=== PATIENT | female | born 1935 | race Caucasian/White ===

== ENCOUNTER 2017-10-26 08:29 | Day surgery (SDC) | payer MEDICARE ==
[2017-10-23 10:24] VITALS: BMI 44.6
[~2017-10-26 08:29] MED LIST: FLU VACC TS2017-18 (>65YR) 0.5 ML SYRINGE IM ONE; Prevnar 13-Val Conj/PF 0.5 ML SYRINGE IM ONE
[2017-10-26 08:55] LABS: #Basophils 0.1 thou/uL (0.0-0.2); #Eosinphils 0.4 thou/uL (0.0-0.7); #Lymphocytes 2.2 thou/uL (1.20-3.40); #Monocytes 0.8 thou/uL (0.11-0.59); #Neutrophils 6.7 thou/uL (1.40-6.50); %Basophils 1.2 % (0.0-1.0); %Eosinophils 4.3 % (0.0-10.0); %Lymphocytes 21.3 % (21.0-51.0); %Monocytes 7.6 % (0.0-10.0); %Neutrophils 65.7 % (42.0-75.0); Hemoglobin 10.1 g/dL (12.0-16.0); Mean Corpuscular HGB CONC 32.6 g/dL (32.0-36.0); Mean Corpuscular Hemoglobin 30.5 pg (27.0-31.0); Mean Corpuscular Volume 93.4 fl (81.0-99.0); Mean Platelet Volume 6.1 fL (7.4-10.4); Platelet Count 351 thou/uL (130-400); RBC Distribution Width 13.7 % (11.5-14.5); White Blood Cell (WBC) Count 10.2 thou/uL (4.8-10.8)
[2017-10-26 09:10] LABS: PTT 28.4 SEC (22.9-36.1); Prothrombin Time 13.6 SEC (12.0-14.7)
[2017-10-26] MEDS ORDERED: Sodium Bicarbonate 2.5 MEQ/5 ML VIAL ONE (10:38)
[2017-10-26] MEDS ORDERED: Fentanyl 100 MCG/2 ML VIAL ONE (10:39)
[2017-10-26 12:27] VITALS: BP 127/45; TEMP 98
--- NOTE | 2017-10-26 12:33 | CT ---
CT RENAL PERCUTANEOUS BIOPSY: HISTORY: Chronic renal disease. Patient in need of renal biopsy for pathologic diagnosis. FINDINGS: Informed consent was obtained from the patient. The risks of the procedure including the risk of inf ection, renal vascular injury, and bleeding were explained to the patient. The patient understands t he risks and has agreed to have the exam performed. The left kidney was selected using CT guidance. The overlying skin was prepped and draped in the usu al sterile manner. A 1% Lidocaine solution was used to anesthetize the overlying soft tissues. The patient was given some IV Fentanyl 50 mg for pain control. An outer 17 gauge coaxial needle was placed using CT guidance through the left renal capsule. Three 1 cm core biopsies obtained. Specimens were obtained using an 18-gauge gauge core biopsy needle. No complications encountered during the course of the exam. Post procedure through the outer needle, a Gelfoam pledget was introduced to help with hemostasis. Post procedure CT was obtained of the retroperitoneum. IMPRESSION: Successful CT guided left renal biopsy. Pathology is pending. POS: [facility]
--- NOTE | 2017-10-26 14:36 | CT ---
CT ABDOMEN: HISTORY: Patient with decreasing hematocrit post biopsy. FINDINGS: Noncontrast enhanced images of the abdomen are performed. CT images demonstrate extensive colonic diverticula noted. Post biopsy gas is seen in the left perirenal space. No evidence of postbiopsy hematoma is seen. Areas of renal parenchymal nodularity are seen in the posterior and anterior aspect of the mid pole o f the left kidney. These may represent hyperdense cysts or possible renal parenchymal masses. It ma y be worthwhile to consider renal sonography to further characterize. IMPRESSION: No evidence of post biopsy hematoma. Findings discussed with Dr. Kingsley Steinberg at 2:09 p.m. on 10/26/17. CODE CR POS: [facility]
[2017-10-26] MEDS ORDERED: Iopamidol 370 76% 100 ML VIAL ONE (15:42)
== END 2017-10-26 14:25 | disposition home or self-care (01) ==
LOC: CT 08:29
PROVIDERS: ATTEND Internal Medicine Nephrology
PROC: 0TB43ZX Excision of Left Kidney Pelvis, Percutaneous Approach, Diagnostic (ICD-10-PCS; principal; 2017-10-26)
DX: I12.9 Hypertensive chronic kidney disease with stage 1 through stage 4 chronic kidney disease, or unspecified chronic kidney disease (principal); N18.9 Chronic kidney disease, unspecified; R60.0 Localized edema
CPT/HCPCS: 36415; 50200; 74150; 77002; 85025; 85610; 85730; 88305; 88313; 88329; 88346; 88348; 88350; J3010

== ENCOUNTER 2017-11-04 10:20 | Inpatient (IN) | payer MEDICARE ==
[2017-11-04 11:06] LABS: #Basophils 0.1 thou/uL (0.0-0.2); #Eosinphils 0.3 thou/uL (0.0-0.7); #Lymphocytes 1.2 thou/uL (1.20-3.40); #Monocytes 0.9 thou/uL (0.11-0.59); %Basophils 0.8 % (0.0-1.0); %Eosinophils 2.9 % (0.0-10.0); %Monocytes 7.5 % (0.0-10.0); %Neutrophils 78.7 % (42.0-75.0); Hemoglobin 9.3 g/dL (12.0-16.0); Mean Corpuscular Hemoglobin 30.7 pg (27.0-31.0); Mean Corpuscular Volume 92.9 fl (81.0-99.0); Mean Platelet Volume 6.4 fL (7.4-10.4); Platelet Count 360 thou/uL (130-400); RBC Distribution Width 13.8 % (11.5-14.5); Red Blood Cell (RBC) Count 3.03 mill/uL (4.20-5.40); White Blood Cell (WBC) Count 11.5 thou/uL (4.8-10.8)
[2017-11-04 11:33] LABS: Anion Gap 12 mmol/L (10-20); BUN (Urea Nitrogen) 56 mg/dL (9.8-20.1); Calc. Creatinine Clearance 0 mL/min (70-130); Carbon Dioxide 27 mmol/L (23-31); Chloride 105 mmol/L (98-107); Estimated GFR-MDRD 11; Glucose 132 mg/dL (83-110); Sodium 141 mmol/L (136-145)
[2017-11-04] MEDS ORDERED: Ondansetron ODT 4 MG TAB PO PRN (13:28)
[2017-11-04] MEDS ORDERED: Acetaminophen 325 MG TAB PO PRN (13:28)
[2017-11-04] MEDS ORDERED: Ondansetron HCl/PF 4 MG/2 ML Vial IVP PRN (13:28)
--- NOTE | 2017-11-04 13:50 | HP ---
HISTORY OF PRESENT ILLNESS: Brina Lemons is an 82-year-old who lives with her 2 daught ers in [place]. She has been followed by Dr. Steinberg. She has been sent to the emergency room to initiate dialysis. Hemoglobin 8.3, white count 11.5, BUN 56, creatinine 3.84, GFR 11, potassium 3. She has a right hand IV and left AC IV. I have removed her left AC IV and informed her that she should not l et anybody place an IV or draw blood above her mid forearm. The patient has a left subclavian vein p acemaker for probable sick sinus syndrome. She has been followed by Dr. Willam Abernathy, but now is transf erring care to Dr. Hung Nascimento and she has not seen a preschool special education teacher in sometime. She denies any history of coronary disease. Echocardiogram 07/19/[address] Willam Abernathy revealed 60-65% EF grade I d iastolic dysfunction, mild mitral and tricuspid regurgitation, otherwise unremarkable. CAT scan on 0 10/26/2017, no evidence of acute disease. Extensive colonic diverticula noted. Dr. Torres saw her in 2012, she had an EGD that was normal and colonoscopy that was normal except for extensive diverticulo sis. She had a GI bleed at that time and was transfused 2 units of blood. ALLERGIES: None. TOBACCO: None. ALCOHOL: None. MEDICATIONS: Tramadol, Altace, Prilosec, nifedipine, latanoprost eyedrops, Lasix daily, folic acid d aily, ferrous gluconate daily, vitamins. PAST SURGICAL HISTORY: Left subclavian vein pacemaker, cholecystectomy, ORIF elbow. PAST MEDICAL HISTORY: Diverticulitis history, diverticulosis, hypertension, diabetes mellitus diet c ontrolled, and chronic kidney disease culminating in end-stage renal disease, needing dialysis access . REVIEW OF SYSTEMS: Noncontributory, 10 point otherwise has been described above. PHYSICAL EXAMINATION: HEENT: Unremarkable. LUNGS: Clear to auscultation. CARDIAC: Regular rate and rhythm without murmur or gallop. ABDOMEN: Soft, nontender, obese. No hernias evident. EXTREMITIES: Palpable radial pulses bilaterally. Left antecubital IV removed, right hand IV. No ankle edema, palpable radial pulses. LYMPH: Cervical, axillary, groins without lymphadenopathy. ASSESSMENT AND PLAN: 1. Chronic kidney disease in need of dialysis access. We will plan ultrasound vein mapping both arm s. She has a left subclavian vein pacemaker. We will plan most likely right arm primary fistula or prosthetic graft. Risk of infection, bleeding, and re-operation explained. She consents. 2. History of diverticulitis. 3. History of diverticulosis. 4. Grade I diastolic dysfunction, normal LV function by echocardiogram 2014. 5. Pacemaker, left subclavian vein. 6. Hypertension. 7. Diet-controlled diabetes.
--- NOTE | 2017-11-04 14:08 | HP ---
PRIMARY CARE PHYSICIAN: Dr. Bowling. PRESENTING COMPLAINTS: Extremity welling. HISTORY OF PRESENT ILLNESS: Ms. Lemons is an 82-year-old patient with a past medical history of hy pertension, diet-controlled diabetes who presented to the emergency room with progressively worsening lower extremity edema on for the last few weeks. She has a history of end-stage renal dialysis and had to be scheduled for dialysis which has now deemed to be of urgent importance. She has no other m edical conditions. She denies chest pain, shortness of breath, PND, orthopnea. She has no abdominal or urinary symptoms. PAST MEDICAL HISTORY: Hypertension, diet-controlled DM 2, heart failure with pacemaker placement, ch ronic iron deficiency anemia, macular degeneration, DJD, CKD stage 5. PAST SURGICAL HISTORY: Cholecystectomy, elbow surgery, status post pacemaker placement. FAMILY HISTORY: Reviewed and noncontributory. SOCIAL HISTORY: She does not smoke cigarettes, drink alcohol or use illicit drugs. ALLERGIES: No known drug allergies. HOME MEDICATIONS: Vitamin tablets once daily, cholecalciferol 2000 units daily, ferrous gluconate 32 5 mg daily, folic acid 1 mg daily, furosemide 40 mg daily, latanoprost 1 drop in each eye at bedtime, magnesium oxide 400 mg daily, nifedipine 30 mg daily, omega 3 fatty acid 2 caps b.i.d., omeprazole 4 0 mg daily, ramipril 5 mg b.i.d., red yeast rice 2 capsules daily, tramadol 50 mg b.i.d. REVIEW OF SYSTEMS: A 12-point review of systems conducted and negative except as stated in HPI. PHYSICAL EXAMINATION: VITAL SIGNS: Stable. GENERAL: Not in acute distress, sitting comfortably in bed. HEENT: Normocephalic, atraumatic. Not pale, anicteric. PERRLA, EOMI. RESPIRATORY: Breath sounds vesicular bilaterally. No wheezes, rales or rhonchi. CARDIOVASCULAR: S1 and S2 only, no murmurs, rubs or gallops. Regular rate and rhythm. ABDOMEN: Soft, nontender, not distended. Bowel sounds positive. No hepatosplenomegaly. Obese abdo men. MUSCULOSKELETAL: A 3+ edema bilaterally. No skeletal abnormalities. SKIN: Warm, dry, well perfused. No rashes or lesions. NEUROLOGIC: Alert and well oriented to time, place and person. No focal deficits. PSYCHIATRIC: Normal mood and affect. LABORATORY DATA: WBC 11.5, hemoglobin 9.3, platelets 360. Chemistry: Sodium 141, potassium 3, chlo ride 105, carbon dioxide 27, anion gap 12, BUN 56, creatinine 3.82, glucose 132, calcium 9.0. IMAGING: None. ASSESSMENT AND PLAN: 1. End-stage renal disease stage 5. The patient is stable, has pedal edema, but not requiring hemod ialysis. General Surgery has been consulted as well as Nephrology and the patient will be treated wi catheter today and dialyzed. We will continue her home medications when able to take p.o. 2. Hypertension. Blood pressure is currently at goal. We will resume her home regimen of nifedipin e and ramipril. Monitor blood pressures closely. 3. Status post pacemaker. She is currently doing well and asymptomatic. We will monitor. 4. Gastroesophageal reflux disease. Continue omeprazole. 5. CODE STATUS: FULL CODE. 6. Deep venous thrombosis prophylaxis with subcutaneous heparin.
[2017-11-04 17:43] VITALS: BMI 44.3
--- NOTE | 2017-11-04 18:01 | ULT ---
BILATERAL UPPER EXTREMITY VASCULAR MAPPING 11/04/17 HISTORY: End-stage renal disease, evaluate for dialysis access planning. TECHNIQUE: Multiplanar arango scale sonographic imaging of the vascular structures of bilateral upper extremities obtained with color flow and spectral analysis. FINDINGS: Bilateral internal jugular veins, subclavian veins, and axillary veins are patent. VESSEL DIAMETER (mm) RIGHT UPPER EXTREMITY BRACHIAL ARTERY: 3.3 mm RADIAL ARTERY: 1.7 mm ULNAR ARTERY: 1.7 mm CEPHALIC VEIN Above elbow proximal:1.2 mm Above elbow mid: 1.7 mm Above elbow distal: 1.9 mm At elbow: 1.4 mm Below elbow proximal:1.4 mm Below elbow mid: 1.2 mm Below elbow distal: 0.9 mm BASILIC VEIN Above elbow proximal:Not seen Above elbow mid: 1.0 mm Above elbow distal: 3.2 mm At elbow: 2.4 mm Below elbow proximal:2.5 mm Below elbow mid: 1.3 mm Below elbow distal: 1.1 mm LEFT UPPER EXTREMITY BRACHIAL ARTERY: 3.2 mm RADIAL ARTERY: 1.4 mm ULNAR ARTERY: 1.7 mm CEPHALIC VEIN Above elbow proximal:1.7 mm Above elbow mid: 2.7 mm Above elbow distal: 3.3 mm At elbow: 4.5 mm Below elbow proximal:1.4 mm Below elbow mid: 1.4 mm Below elbow distal: 0.9 mm BASILIC VEIN Above elbow proximal:2.5 mm Above elbow mid: 2.3 mm Above elbow distal: 3.5 mm At elbow: 2.4 mm Below elbow proximal:1.4 mm Below elbow mid: 1.7 mm Below elbow distal: 1.1 mm IMPRESSION: Hemodialysis access vessel mapping as detailed above. POS: [facility]
[2017-11-04] MEDS: Heparin 5,000 UNITS/ML VIAL SC SCH ×2 (18:43→20:24)
[2017-11-04] MEDS ORDERED: Epoetin (ESRD) 20,000 UNITS/ML SC SCH (21:00)
--- NOTE | 2017-11-04 22:48 | ULT ---
ULTRASOUND RETROPERITONEUM COMPLETE: (RENAL) 11/04/17 HISTORY: 82-year-old female with chronic kidney disease. Followup of multiple left renal masses found on CT of 10/26/17. FINDINGS: RIGHT KIDNEY: 10 x 4.5 x 4.5 cm. LEFT KIDNEY: 11.5 x 6 x 5.5 cm. Bilateral renal parenchymal echogenicity is heterogeneously diffusely mildly increased, consistent wi th medical renal disease. There is bilateral renal parenchymal thinning. There is no hydronephrosis. There are multiple left renal cysts. The largest is in the mid pole measuring 2 x 2 x 1.5 cm. No defi nite solid renal mass is identified. There is no hydronephrosis. The urinary bladder demonstrates no major morphologic abnormality. However, the bilateral ureteral jets are not visualized, indicating l ow urine output. IMPRESSION: 1. Evidence for medical renal disease. 2. Multiple left renal cysts. JORGE LUIS Robbins POS: [facility]
[2017-11-05 06:17] LABS: Anion Gap 13 mmol/L (10-20); BUN (Urea Nitrogen) 54 mg/dL (9.8-20.1); Calc. Creatinine Clearance 17 mL/min (70-130); Calcium 8.5 mg/dL (7.8-10.44); Carbon Dioxide 22 mmol/L (23-31); Chloride 109 mmol/L (98-107); Estimated GFR-MDRD 12; Glucose 102 mg/dL (83-110); Sodium 141 mmol/L (136-145)
[2017-11-05 06:28] LABS: #Eosinphils 0.5 thou/uL (0.0-0.7); #Lymphocytes 1.1 thou/uL (1.20-3.40); #Monocytes 0.7 thou/uL (0.11-0.59); #Neutrophils 6.1 thou/uL (1.40-6.50); %Basophils 0.4 % (0.0-1.0); %Eosinophils 5.9 % (0.0-10.0); %Lymphocytes 13.4 % (21.0-51.0); %Monocytes 8.1 % (0.0-10.0); %Neutrophils 72.2 % (42.0-75.0); Hemoglobin 8.7 g/dL (12.0-16.0); Mean Corpuscular HGB CONC 31.6 g/dL (32.0-36.0); Mean Corpuscular Hemoglobin 30.4 pg (27.0-31.0); Mean Corpuscular Volume 96.2 fl (81.0-99.0); Mean Platelet Volume 6.9 fL (7.4-10.4); Platelet Count 326 thou/uL (130-400); RBC Distribution Width 13.7 % (11.5-14.5); Red Blood Cell (RBC) Count 2.85 mill/uL (4.20-5.40); White Blood Cell (WBC) Count 8.5 thou/uL (4.8-10.8)
[2017-11-05] MEDS ORDERED: Heparin 10,000 UNITS/ 10 ML VIAL ONE ×2 (07:43→12:00)
[2017-11-05] MEDS ORDERED: PHENYLEPHRINE-NS 100 MCG/ML 10 ML SYRINGE ONE ×2 (07:43→14:49)
[2017-11-05] MEDS ORDERED: Propofol 200 MG/20 ML VIAL ONE (07:43)
[2017-11-05] MEDS ORDERED: Ferrous Sulfate 325 MG TAB PO SCH (08:00)
[2017-11-05] MEDS: Magnesium Oxide 400 MG TAB PO SCH ×2 (08:51→20:18)
[2017-11-05] MEDS: Fish Oil 1,000 MG CAP PO SCH ×2 (08:51→20:18)
[2017-11-05] MEDS: Folic Acid 1 MG TAB PO SCH (08:52)
[2017-11-05] MEDS: Ferrous Gluconate 324 MG TAB PO SCH (08:52)
[2017-11-05] MEDS: NIFEdipine XL 30 MG TAB PO SCH (08:53)
[2017-11-05] MEDS: Heparin 5,000 UNITS/ML VIAL SC SCH ×3 (08:53→20:18)
--- NOTE | 2017-11-05 08:57 | PRG ---
DATE OF SERVICE: 11/05/2017 SUBJECTIVE: Ms. Lemons is an 82-year-old white female who was admitted due to the worsening renal dysfunction. Initiation for dialysis has been planned. A repeat renal ultrasound showed evidence of renal disease/multiple left renal cyst. No other complaints. I will discontinue the furosemide due to the fact the patient will be on dialysis. No other complaints, no chest pain, no shortness of br eath. PHYSICAL EXAMINATION: VITAL SIGNS: Blood pressure is 123/62, heart rate 85, respiratory 16, temperature 97.7, pulse ox 99% . GENERAL: Awake, alert, supine, comfortable, obese. SKIN: Adequate turgor. HEENT: She has slightly pale conjunctivae, anicteric sclerae. NECK: No neck mass, no carotid bruits, no JVD. CHEST: No deformities. LUNGS: Clear breath sounds. No wheezing, no crackles. HEART: Normal sinus rhythm. No murmur, no gallops or rubs. ABDOMEN: Globular, soft, nontender. EXTREMITIES: Positive for edema. MEDICATIONS: 11/05/2017 - Reviewed. LABORATORY: 11/05/2017 - White count 8.5, hemoglobin 8.7. Sodium 141, potassium 2.3, chloride 109, carbon dioxide 22, BUN 54, creatinine 3.75, glucose 102, calcium 8.5. ASSESSMENT AND PLAN: 1. 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 Pathology was inconclusive. Initiate dialysis to day or tomorrow. We will do initially a 1 hour hemodialysis, then follow it up with subsequent, incr ease, hourly, with the daily dialysis. This morning, doing well, no new complaints. 2. Mild hypokalemia. We will adjust dialysis bath with this. I have discontinued her furosemide. 3. Chronic leg edema - Fluid removal with the dialysis. 4. Anemia - continue current weekly Epogen. The patient has been started on Procrit 7500 units subc u q. 7 days and Fergon.
[2017-11-05] MEDS ORDERED: Non-Formulary Item 1 EACH (Omega-3 Fatty Acids/Fish Oil [Fish Oil 1,000 Mg Capsule] 2 CAP PO SCH (09:00)
[2017-11-05] MEDS ORDERED: Furosemide 40 MG TAB PO SCH (09:00)
[2017-11-05] MEDS ORDERED: Non-Formulary Item 1 EACH (Ferrous Gluconate [Ferrous Gluconate] 324 MG) PO SCH (09:00)
[2017-11-05] MEDS ORDERED: NIFEDIPINE 30 MG PO SCH (09:00)
[2017-11-05] MEDS ORDERED: Non-Formulary Item 1 EACH (Cholecalciferol (Vitamin D3) [Vitamin D3] 2,000 UNIT) PO SCH (09:00)
[2017-11-05 09:08] LABS: HBSAg Index 0.15 S/CO (0-0.99); Hep B Surf Ag Non-Reactive S/CO (NonReactive)
--- NOTE | 2017-11-05 10:53 | PDOC.PN ---
- Subjective Encounter Start Date: 11/05/17 Encounter Start Time: 10:58 Subjective: no new complaints. -: No acute events overngiht. - Objective Resuscitation Status: Resuscitation Status FULL:Full Resuscitation MAR Reviewed: Yes Vital Signs & Weight: Vital Signs (12 hours) Temp Pulse Resp BP Pulse Ox 11/05/17 08:53 69 11/05/17 08:48 97.4 F L 69 18 163/93 H 100 11/05/17 08:00 97.4 F L 69 18 11/05/17 04:00 97.7 F 85 16 123/62 99 11/05/17 00:00 84 18 98 Weight Admit Weight 205 lb Weight 205 lb I&O: 11/04/17 11/05/17 11/06/17 06:59 06:59 06:59 Intake Total 250 Output Total 400 Balance -150 Result Diagrams: 11/05/17 05:38 11/05/17 05:38 Phys Exam - Physical Examination Constitutional: NAD HEENT: PERRLA, moist MMs Neck: no JVD, supple, full ROM Respiratory: no wheezing, no rales, no rhonchi, clear to auscultation bilateral Cardiovascular: RRR, no significant murmur, no rub Gastrointestinal: soft, non-tender, no distention, positive bowel sounds Musculoskeletal: pulses present, edema present Neurological: non-focal, moves all 4 limbs Psychiatric: normal affect, A&O x 3 Skin: no rash, normal turgor Dx/Plan (1) ESRD (end stage renal disease) Code(s): N18.6 - END STAGE RENAL DISEASE Status: Chronic Comment: 2/2 chronic glomerulonephritis. Being started on hemodialysis. Imaging and work up, including catherer placement ongoing. Dialysis after. (2) Hypertension Code(s): I10 - ESSENTIAL (PRIMARY) HYPERTENSION Status: Acute Qualifiers: Hypertension type: essential hypertension Qualified Code(s): I10 - Essential (primary) hypertension Comment: Controlled. Continue home medications. 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 At goal. (4) GERD (gastroesophageal reflux disease) Code(s): K21.9 - GASTRO-ESOPHAGEAL REFLUX DISEASE WITHOUT ESOPHAGITIS Status: Acute Qualifiers: Esophagitis presence: without esophagitis Qualified Code(s): K21.9 - Gastro -esophageal reflux disease without esophagitis (5) Hypokalemia Code(s): E87.6 - HYPOKALEMIA Status: Acute Comment: Will be replaced during hemodialysis. Recheck after HD. - Plan cont current plan of care, plan discussed w/ family, DVT proph w/heparin * . Review of Systems - Medications/Allergies Allergies/Adverse Reactions: Allergies Allergy/AdvReac Type Severity Reaction Status Date / Time No Known Drug Allergies Allergy Unknown Verified 06/11/13 22:26 Medications: Current Medications Acetaminophen (Tylenol) 650 mg PO Q4H PRN PRN Reason: Headache/Fever or Pain Cholecalciferol (Vitamin D3) 2,000 units PO DAILY [facility] Last Admin: 11/05/17 08:51 Dose: 2,000 units Epoetin Leo (Procrit) 7,500 units SC Q7D [facility] Ferrous Gluconate (Fergon) 324 mg PO DAILY [facility] Last Admin: 11/05/17 08:52 Dose: 324 mg Fish Oil (Fish Oil) 2,000 mg PO BID [facility] Last Admin: 11/05/17 08:51 Dose: 2,000 mg Folic Acid (Folvite) 1 mg PO DAILY [facility] Last Admin: 11/05/17 08:52 Dose: 1 mg Heparin Sodium (Porcine) (Heparin) 5,000 units SC TID [facility] Last Admin: 11/05/17 08:53 Dose: Not Given Latanoprost (Xalatan 0.005% Ophth Soln) 1 drop EA EYE HS [facility] Magnesium Oxide (Magnesium Oxide) 400 mg PO BID [facility] Last Admin: 11/05/17 08:51 Dose: 400 mg Nifedipine (Procardia Xl) 30 mg PO DAILY [facility] Last Admin: 11/05/17 08:53 Dose: 30 mg Ondansetron HCl (Zofran Odt) 4 mg PO Q6H PRN PRN Reason: Nausea/Vomiting Ondansetron HCl (Zofran) 4 mg IVP Q6H PRN PRN Reason: Nausea/Vomiting Sodium Chloride (Flush - Normal Saline) 10 ml IVF Q12HR [facility] Last Admin: 11/05/17 08:54 Dose: 10 ml Sodium Chloride (Flush - Normal Saline) 10 ml IVF PRN PRN PRN Reason: Saline Flush Tramadol HCl (Ultram) 50 mg PO BID PRN PRN Reason: Pain
[2017-11-05] MEDS: Epoetin (ESRD) 20,000 UNITS/ML SC SCH (11:01)
--- NOTE | 2017-11-05 11:55 | CON ---
DATE OF CONSULTATION: 11/04/2017 HISTORY OF PRESENT ILLNESS: Ms. Lemons is an 82-year-old white female with chronic renal failure secondary to presumed chronic glomerulonephritis. She has been followed by the renal clinic with progressive azotemia in the last several months. About a week ago, underwent a CT scan guided renal biopsy. Sample was somewhat limited due to the chronicity of this kidney. As far as the pathology report, there were three glomeruli noted, but they were all sclerosed. No definitive diagnosis was made as to what type of glomerulonephritis this patient has. However, as per verbal report electro- microscopy and immunofluorescent was negative. She is now admitted for further management of her worsening renal dysfunction. Initiation for dialysis has been planned for this patient. A surgical consult has been done with Dr. Roman for placement of dialysis catheter. REVIEW OF SYSTEMS: No chest pain. Positive for leg edema. No shortness of breath. Positive for nausea, decreased appetite, decreased energy level. No abdominal pain. Occasional joint pains. No sore throat. No diplopia. No headache. No fever or chills. No hematochezia. No melena. No hematemesis. MEDICATIONS: Lasix 40 mg tab once a day, fish oil 1000 mg 2 capsules b.i.d., vitamin D3 2000 international units, magnesium oxide 400 mg once a day, folic acid 1 mg every day, tramadol 50 mg daily p.r.n., nifedipine 30 mg XL tab once a day. PAST MEDICAL HISTORY: Chronic renal failure from chronic glomerulonephritis, proteinuria, hyperlipidemia, longstanding hypertension, GERD status post diverticulitis, cardiac arrhythmia. PAST SURGICAL HISTORY: 1. Status post CT scan guided renal biopsy. 2. Status post bilateral cataract surgery. 3. Status post open cholecystectomy. 4. Status post colonoscopy. 5. Status post pacemaker placement. 6. Status post left elbow surgery. ALLERGIES: None. TRAUMA: Status post left elbow fracture. IMMUNIZATIONS: Not up to date, declining flu shot. HOSPITALIZATIONS: Please see past medical history. SOCIAL HISTORY: The patient lives in [place]. She is . She lives with her daughter. She has 6 children. 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 No history of smoking, no alcohol intake, no IV drug abuse. Status post blood transfusion and sedentary lifestyle. FAMILY HISTORY: No family history of ESRD. PHYSICAL EXAMINATION: VITAL SIGNS: Blood pressure is noted at 140/65 with a heart rate of 77, respiratory 16, temperature 97.9, pulse oximetry 99% room air. GENERAL: Awake, alert, obese, not in overt distress. SKIN: Adequate turgor. HEENT: She has slightly pale conjunctivae, anicteric sclerae. NECK: No neck mass, no carotid bruits, no JVD. CHEST: No deformities. LUNGS: Clear breath sounds, no wheezing, no crackles. HEART: Normal sinus rhythm. She has no murmur, no gallops or rubs. ABDOMEN: Globular, soft, nontender, no masses. EXTREMITIES: Positive for bilateral pitting edema. NEUROLOGIC: Awake, oriented to 3 spheres. Moving all extremities. No tremors or asterixis. LABORATORY: Of 11/04/2017, white count 11.1, hemoglobin 9.3. Sodium 140, potassium 4.1, chloride 103, carbon dioxide 28, BUN 40, creatinine 2.75 that as 08/04/2017. Laboratories of 11/04/2017, sodium 141, potassium is 3, chloride 105, carbon dioxide 27, BUN 56, creatinine 3.84, glucose 132, calcium 9. ASSESSMENT AND PLAN: 1. Chronic renal failure - secondary to chronic glomerulonephritis. Exact histology cannot be determined in spite of renal biopsy. She did present with hematuria and proteinuria. Due to the much worsening renal dysfunction, we will proceed with hemodialysis with this patient. I had a long discussion with the patient and her daughter regarding different dialysis options. For the moment, they would like to proceed with hemodialysis with the eventual consideration for peritoneal dialysis. 2. We have consulted Dr. Roman. We will schedule the patient for cuffed hemodialysis catheter placement as well as AV fistula. 3. Anemia. Start Epogen 7500 units subcu every week, ferrous sulfate 325 mg b.i.d. 4. Hypertension. Continue current blood pressure meds. Thank you for the consult. We will continue to follow. MTDD
[2017-11-05] MEDS ORDERED: Midazolam HCl 2 mg/2 ml Vial ONE (12:33)
[2017-11-05] MEDS ORDERED: Fentanyl 100 MCG/2 ML VIAL ONE ×2 (12:33→16:14)
[2017-11-05] MEDS ORDERED: Bupivacaine HCl 0.5%/Epinephrine 1:200,000/PF 30 ml Vial ONE ×2 (13:06→14:36)
[2017-11-05] MEDS ORDERED: Lidocaine 2% 10 ML INJ ONE (13:06)
[2017-11-05] MEDS ORDERED: Protamine Sulfate 50 MG/5 ML VIAL ONE (13:06)
[2017-11-05] MEDS ORDERED: Heparin 5,000 UNITS/ML VIAL ONE (13:06)
[2017-11-05] MEDS ORDERED: Heparin 10,000 UNITS/1 ML VIAL ONE (13:06)
[2017-11-05] MEDS ORDERED: Sodium Chloride 0.9% 20 ML ONE (13:06)
[2017-11-05] MEDS ORDERED: Propofol 1,000 MG/100 ML VIAL IV ONE (13:28)
[2017-11-05] MEDS ORDERED: Lidocaine 2% Jelly 5 ML TUBE ONE (13:34)
[2017-11-05] MEDS ORDERED: Fentanyl 250 MCG/5 ML VIAL ONE (14:12)
[2017-11-05] MEDS ORDERED: CEFAZOLIN 1 GM VIAL ONE (14:12)
[2017-11-05] MEDS ORDERED: Acetaminophen 500 MG TAB PO PRN (14:49)
[2017-11-05] MEDS ORDERED: Phenylephrine HCL 10 MG/ML VIAL ONE (14:50)
[2017-11-05] MEDS ORDERED: Promethazine HCl 25 MG/ML VIAL SLOW IVP PRN (15:59)
[2017-11-05] MEDS ORDERED: Promethazine HCl 25 MG/ML VIAL IM PRN (15:59)
[2017-11-05] MEDS ORDERED: Ondansetron HCl/PF 4 MG/2 ML Vial IVP PRN (15:59)
--- NOTE | 2017-11-05 16:07 | OP ---
DATE OF PROCEDURE: 11/05/2017 PREOPERATIVE DIAGNOSES: End-stage renal disease, morbid obesity, poor IV access, and left subclavian vein pacemaker. POSTOPERATIVE DIAGNOSES: End-stage renal disease, morbid obesity, poor IV access, and left subclavia n vein pacemaker. PROCEDURES: Right IJ cuffed tunnel hemodialysis catheter, angiodynamics precurved. Left IJ central line. Left arm primary fistula, perforating branch antecubital vein to the proximal radial artery wh ich was of good quality outflow both the basilic and cephalic vein, both calibrated to 4 mm coronary dilator with retrograde antecubital vein preserved. Good Doppler signal in the cephalic vein outflow that did not seem to accentuate when basilic vein outflow occluded. SURGEON: Ti Roman M.D. ANESTHESIA: Regional TIVA. Local 0.5% Marcaine with epinephrine 30 mL mixed with Xylocaine, 10 mL. DESCRIPTION OF PROCEDURE: The patient was taken to the operating room where under regional anesthesi a and intravenous sedation, neck, chest and left upper extremity was prepped with ChloraPrep and drap ed in routine fashion. Local anesthetic infiltrated into the skin and subcutaneous tissue about the operative site. Ultrasound was not immediately available and right and left internal jugular veins w ere cannulated with trocar catheters and J-wire threaded. Trocar catheter removed. Skin incised and enlarged sharply bilaterally and on the left side Seldinger technique used to place a triple lumen c atheter securing of 3-0 nylon suture. Biopatch sterile dressing applied. Each port aspirated blood and flushed with saline solution. On the right side, a stab incision made over the right chest and using the tunneling device, the prec urved angiodynamics cuffed tunnel hemodialysis catheter tunneled between two incisions, placing the f abric cuff beneath the skin exit site and catheter secured with 2 interrupted sutures of 3-0 nylon. Biopatch applied. Smaller medium sized dilators placed over the J-wire into the internal jugular vei n and removed. Dilator and pull-away sheath placed over the J-wire into the internal jugular vein an d superior vena cava and dilator and J wire removed. Catheter placed through pull-away sheath. Pull -away sheath removed. Platysma approximated with 4-0 Monocryl, skin with subdermal Monocryl. Each p ort aspirated with blood and flushed with saline solution and heparinized with saline solution 1000 u nits heparin per mL indicated volume of the port. Dermabond and sterile dressings applied. Fluorosc opic images revealed good line placements. Incision was made in the proximal volar forearm longitudinally, carried down through skin and subcuta neous tissue below the antecubital fossa and antecubital vein was identified and was of good caliber, dissected free and bifurcated into an adequate caliber cephalic and basilic vein. Retrograde antecu bital vein was preserved. Perforating branch was of good caliber and it was dissected free and branc hes divided between clips and 4-0 silk ties and spatulated over a branch point. The patient was give n 6000 units of heparin intravenously. This was then calibrated and explored with coronary dilators, passing coronary dilators from a 2 mm to a 4 mm coronary dilator out the basilic and cephalic vein o utflows without obstruction. Brachial, ulnar and radial arteries identified, but radial artery was o f good quality. After adequate heparin circulation time, the proximal artery was clamped proximally and distally. Longitudinal arteriotomy made sharply and elongated with Breaux scissors and perforatin g branch of antecubital vein spatulated and end vein to side proximal artery anastomosis created with continuous suture of 6-0 Prolene after completing anastomosis, vascular clamps were released. There was excellent flow in the fistula interrogated by Doppler. Doppler signals in the cephalic vein out flow were strong and did not increase with basilic vein outflow occlusion. Both outflows were left i ntact. Retrograde antecubital vein was of good caliber and left intact. Good hemostasis noted and o btained with clips and 4-0 silk ties and 6-0 Prolene. Surgicel applied to the anastomosis. Subcutan eous tissue is approximated with 3-0 Monocryl, skin with subdermal 4-0 Monocryl and DermaGlue applied .
--- NOTE | 2017-11-05 17:32 | RAD ---
PORTABLE UPRIGHT FRONTAL CHEST RADIOGRAPH 11/05/17 COMPARISON: 07/18/15. HISTORY: Evaluate chest following central line placement. FINDINGS: The transvenous pacing device inserted via a left subclavian approach. There is a left sided vascular catheter with distal tip approaching the region of the cavoatrial junction. There is a right sided d ialysis catheter, distal tip approaching the region of the cavoatrial junction as well. No pneumothor ax, pleural fluid, lobar consolidation, or alveolar edema. The cardiac silhouette is prominent. Cardiac pacing leads overlie the region of the right atrium and right ventricle. IMPRESSION: No evidence for pneumothorax. Central vascular catheters as above. POS: [facility]
[2017-11-05] MEDS ORDERED: Dextrose 5% in Water 1,000 ML IV PRN (17:53)
[2017-11-05] MEDS ORDERED: Dextrose 50% Abboject 50 ML SYRINGE SLOW IVP PRN (17:53)
[2017-11-05] MEDS: traMADol HCl 50 MG TAB PO PRN (18:06)
[2017-11-05] MEDS: Latanoprost 0.005% Ophth Soln 2.5 ml Bottle EA EYE SCH (20:19)
[2017-11-06 05:14] LABS: #Basophils 0.1 thou/uL (0.0-0.2); #Eosinphils 0.1 thou/uL (0.0-0.7); #Monocytes 0.6 thou/uL (0.11-0.59); #Neutrophils 7.1 thou/uL (1.40-6.50); %Basophils 0.6 % (0.0-1.0); %Eosinophils 1.6 % (0.0-10.0); %Lymphocytes 11.4 % (21.0-51.0); %Monocytes 6.5 % (0.0-10.0); %Neutrophils 79.9 % (42.0-75.0); Hemoglobin 7.7 g/dL (12.0-16.0); Mean Corpuscular HGB CONC 33.4 g/dL (32.0-36.0); Mean Corpuscular Hemoglobin 31.1 pg (27.0-31.0); Mean Corpuscular Volume 93.1 fl (81.0-99.0); Mean Platelet Volume 6.2 fL (7.4-10.4); Platelet Count 266 thou/uL (130-400); RBC Distribution Width 13.7 % (11.5-14.5); Red Blood Cell (RBC) Count 2.47 mill/uL (4.20-5.40); White Blood Cell (WBC) Count 8.9 thou/uL (4.8-10.8)
[2017-11-06 05:27] LABS: Anion Gap 9 mmol/L (10-20); BUN (Urea Nitrogen) 41 mg/dL (9.8-20.1); Calc. Creatinine Clearance 20 mL/min (70-130); Calcium 7.9 mg/dL (7.8-10.44); Carbon Dioxide 27 mmol/L (23-31); Chloride 107 mmol/L (98-107); Estimated GFR-MDRD 14; Glucose 95 mg/dL (83-110); Potassium 3.2 mmol/L (3.5-5.1); Sodium 140 mmol/L (136-145)
[2017-11-06] MEDS: traMADol HCl 50 MG TAB PO PRN (05:35)
[2017-11-06] MEDS: Folic Acid 1 MG TAB PO SCH (08:09)
[2017-11-06] MEDS: Ferrous Gluconate 324 MG TAB PO SCH (08:09)
[2017-11-06] MEDS: NIFEdipine XL 30 MG TAB PO SCH (08:09)
[2017-11-06] MEDS: Fish Oil 1,000 MG CAP PO SCH ×2 (08:10→20:44)
[2017-11-06] MEDS: Heparin 5,000 UNITS/ML VIAL SC SCH ×3 (08:10→20:45)
[2017-11-06] MEDS: Magnesium Oxide 400 MG TAB PO SCH ×2 (08:10→20:44)
[2017-11-06] MEDS ORDERED: Heparin 1,000 UNITS/ML VIAL ONE (11:11)
--- NOTE | 2017-11-06 13:44 | PDOC.PN ---
- Subjective Encounter Start Date: 11/06/17 Encounter Start Time: 13:44 Subjective: No complaints. -: No acute events overnight. - Objective Resuscitation Status: Resuscitation Status FULL:Full Resuscitation MAR Reviewed: Yes Vital Signs & Weight: Vital Signs (12 hours) Temp Pulse Resp BP Pulse Ox 11/06/17 08:09 75 11/06/17 08:00 97.8 F 75 18 135/53 L 95 11/06/17 04:00 97.3 F L 75 18 122/71 98 Weight Admit Weight 205 lb Weight 205 lb I&O: 11/05/17 11/06/17 11/07/17 06:59 06:59 06:59 Intake Total 250 Output Total 400 Balance -150 Result Diagrams: 11/06/17 05:08 11/06/17 05:08 Additional Labs: Accuchecks 11/06/17 11/06/17 11:53 04:49 POC Glucose 90 108 Phys Exam - Physical Examination Constitutional: NAD HEENT: PERRLA, moist MMs, sclera anicteric Neck: no JVD, supple, full ROM Respiratory: no wheezing, no rales, no rhonchi, clear to auscultation bilateral Cardiovascular: RRR, no significant murmur, no rub Gastrointestinal: soft, non-tender, no distention, positive bowel sounds Musculoskeletal: no edema, pulses present Neurological: non-focal, moves all 4 limbs Psychiatric: normal affect, A&O x 3 Skin: no rash, normal turgor Dx/Plan (1) ESRD (end stage renal disease) Code(s): N18.6 - END STAGE RENAL DISEASE Status: Chronic Comment: Stable. 2/ 2 chronic glomerulonephritis. Being started on hemodialysis. Imaging and work up , including catherer placement ongoing. Dialysis after. (2) Hypertension Code(s): I10 - ESSENTIAL (PRIMARY) HYPERTENSION Status: Acute Qualifiers: Hypertension type: essential hypertension Qualified Code(s): I10 - Essential (primary) hypertension Comment: Controlled. Continue home medications. (3) DM2 (diabetes mellitus, type 2) Status: Acute Qualifiers: Diabetes mellitus alf insulin use: without alf use Diabetes mellitus complication status: with kidney complications Diabetes mellitus complication detail: with chronic kidney disease Chronic kidney disease stage : stage 5, not on chronic dialysis Qualified Code(s): E11.22 - Type 2 diabetes mellitus with diabetic chronic kidney disease; N18.5 - Chronic kidney disease, stage 5; N18.5 - Chronic kidney disease, stage 5; N18.5 - Chronic kidney disease, stage 5; N18.5 - Chronic kidney disease, stage 5 Comment: Diet controlled. At goal. (4) GERD (gastroesophageal reflux disease) Code(s): K21.9 - GASTRO-ESOPHAGEAL REFLUX DISEASE WITHOUT ESOPHAGITIS Status: Acute Qualifiers: Esophagitis presence: without esophagitis Qualified Code(s): K21.9 - Gastro -esophageal reflux disease without esophagitis (5) Hypokalemia Code(s): E87.6 - HYPOKALEMIA Status: Acute Comment: Repleted. - Plan cont current plan of care, DVT proph w/heparin * . Review of Systems - Medications/Allergies Allergies/Adverse Reactions: Allergies Allergy/AdvReac Type Severity Reaction Status Date / Time No Known Drug Allergies Allergy Unknown Verified 06/11/13 22:26 Medications: Current Medications Acetaminophen (Tylenol) 650 mg PO Q4H PRN PRN Reason: Headache/Fever or Pain Acetaminophen (Tylenol) 1,000 mg PO Q6H PRN PRN Reason: Moderate to Severe Pain (6-10) Cholecalciferol (Vitamin D3) 2,000 units PO DAILY [facility] Last Admin: 11/06/17 08:09 Dose: 2,000 units Dextrose/Water (Dextrose 50%) 25 gm SLOW IVP PRN PRN PRN Reason: Hypoglycemia Epoetin Leo (Procrit) 7,500 units SC Q7D [facility] Last Admin: 11/05/17 11:01 Dose: 7,500 units Ferrous Gluconate (Fergon) 324 mg PO DAILY [facility] Last Admin: 11/06/17 08:09 Dose: 324 mg Fish Oil (Fish Oil) 2,000 mg PO BID [facility] Last Admin: 11/06/17 08:10 Dose: 2,000 mg Folic Acid (Folvite) 1 mg PO DAILY [facility] Last Admin: 11/06/17 08:09 Dose: 1 mg Glucagon (Glucagon) 1 mg IM PRN PRN PRN Reason: Hypoglycemia Heparin Sodium (Porcine) (Heparin) 5,000 units SC TID [facility] Last Admin: 11/06/17 08:10 Dose: 5,000 units Dextrose/Water (D5w) 1,000 mls @ 0 mls/hr IV .Q0M PRN; As Directed PRN Reason: Hypoglycemia Latanoprost (Xalatan 0.005% Oph Soln) 1 drop EA EYE HS [facility] Last Admin: 11/05/17 20:19 Dose: 1 drp Magnesium Oxide (Magnesium Oxide) 400 mg PO BID [facility] Last Admin: 11/06/17 08:10 Dose: 400 mg Nifedipine (Procardia Xl) 30 mg PO DAILY [facility] Last Admin: 11/06/17 08:09 Dose: 30 mg Ondansetron HCl (Zofran Odt) 4 mg PO Q6H PRN PRN Reason: Nausea/Vomiting Ondansetron HCl (Zofran) 4 mg IVP Q6H PRN PRN Reason: Nausea/Vomiting Sodium Chloride (Flush - Normal Saline) 10 ml IVF Q12HR [facility] Last Admin: 11/06/17 08:22 Dose: 10 ml Sodium Chloride (Flush - Normal Saline) 10 ml IVF PRN PRN PRN Reason: Saline Flush Tramadol HCl (Ultram) 50 mg PO BID PRN PRN Reason: Pain Last Admin: 11/06/17 05:35 Dose: 50 mg
--- NOTE | 2017-11-06 16:34 | PRG ---
DATE OF SERVICE: 11/06/2017 SUBJECTIVE: Brina Lemons is doing well today. She has undergone dialysis. She has a functioni ng hemodialysis catheter at right IJ, central line at left IJ, central line can be removed on day of discharge. Left arm fistula form dual outflow basilic and cephalic vein. Due to her obesity, 4 feet and 9, 205 pounds, 44 BMI, she may need transposition. She is to exercise the left arm and use the left arm without restrictions and see me in the office in 3-4 weeks. Avoid IV access blood draws to left arm. We will see her as needed this hospitalization.
--- NOTE | 2017-11-06 18:18 | PRG ---
DATE OF SERVICE: 11/06/2017 SERVICE: Renal medicine. SUBJECTIVE: The patient is doing well. She underwent a 2-hour dialysis and she tolerated this. She has a cuffed dialysis catheter placed and left AV fistula. No new complaints today. She is feeling slightly better. OBJECTIVE: VITAL SIGNS: Blood pressure is 135/53, heart rate 83, respiratory rate 16, temperature 97.4, pulse o x 95% on room air. GENERAL: Awake, alert, comfortable, not in distress. SKIN: Adequate turgor. HEENT: Pinkish conjunctivae, anicteric sclerae. NECK: No neck mass, no carotid bruits, no JVD. CHEST: No deformities. LUNGS: Clear breath sounds, no wheezing, no crackles. HEART: Normal sinus rhythm. No murmur, no gallops, no rubs. ABDOMEN: Globular, soft, nontender, no masses. EXTREMITIES: Positive for edema. Left upper extremity, positive for AV fistula - positive for bruit . MEDICATIONS: Of 11/06/2017 was reviewed. LABORATORY DATA: Of 11/06/2017, hemoglobin 7.7, white count 8.9, sodium 140, potassium 3.2, chloride 107, carbon dioxide 27, BUN 41, creatinine 3.08. ASSESSMENT AND PLAN: 1. Chronic renal failure/end-stage renal disease - tolerating hemodialysis. My plan is to do a 3-ho ur hemodialysis in a.m. 2. Anemia. The patient has been started on Procrit 7500 units subcu daily. 3. Leg edema - max out fluid removal as tolerated. We will consult shoe caser for dialysis placem ent.
[2017-11-06] MEDS: Latanoprost 0.005% Ophth Soln 2.5 ml Bottle EA EYE SCH (20:45)
[2017-11-07 05:57] LABS: #Basophils 0.1 thou/uL (0.0-0.2); #Eosinphils 0.2 thou/uL (0.0-0.7); #Lymphocytes 1.4 thou/uL (1.20-3.40); #Monocytes 0.9 thou/uL (0.11-0.59); #Neutrophils 5.6 thou/uL (1.40-6.50); %Basophils 0.6 % (0.0-1.0); %Eosinophils 2.6 % (0.0-10.0); %Lymphocytes 16.8 % (21.0-51.0); %Monocytes 10.7 % (0.0-10.0); %Neutrophils 69.3 % (42.0-75.0); Hemoglobin 7.5 g/dL (12.0-16.0); Mean Corpuscular HGB CONC 33.1 g/dL (32.0-36.0); Mean Corpuscular Hemoglobin 31.2 pg (27.0-31.0); Mean Corpuscular Volume 94.1 fl (81.0-99.0); Mean Platelet Volume 6.4 fL (7.4-10.4); Platelet Count 241 thou/uL (130-400); Red Blood Cell (RBC) Count 2.39 mill/uL (4.20-5.40); White Blood Cell (WBC) Count 8.1 thou/uL (4.8-10.8)
[2017-11-07 06:09] LABS: Anion Gap 8 mmol/L (10-20); BUN (Urea Nitrogen) 27 mg/dL (9.8-20.1); Calc. Creatinine Clearance 22 mL/min (70-130); Calcium 7.4 mg/dL (7.8-10.44); Carbon Dioxide 30 mmol/L (23-31); Chloride 106 mmol/L (98-107); Estimated GFR-MDRD 16; Glucose 96 mg/dL (83-110); Potassium 3.5 mmol/L (3.5-5.1); Sodium 140 mmol/L (136-145)
--- NOTE | 2017-11-07 10:31 | PRG ---
DATE OF SERVICE: 11/07/2017 SUBJECTIVE: Ms. Lemons is an 82-year-old white female who was admitted for uremic signs and sympto ms. Hemodialysis has been initiated. She has no new complaints today. She is undergoing dialysis. I am at the bedside supervising her dialysis. She still has the leg edema. OBJECTIVE: VITAL SIGNS: Blood pressure is 120/55, heart rate 75, respiratory rate 20, temperature 97.9, pulse o x 98%. GENERAL: Awake, alert, comfortable, not in distress. SKIN: Adequate turgor. HEENT: She has slightly pale conjunctivae, anicteric sclerae. NECK: No neck mass, no carotid bruits, no JVD. CHEST: No deformities. LUNGS: Clear breath sounds. No wheezing, no crackles. HEART: Normal sinus rhythm. No murmur, no gallops, no rubs. ABDOMEN: Globular, soft, nontender, no masses. Positive for edema. EXTREMITIES: Positive for edema. MEDICATIONS: Of 11/07/2017 reviewed. LABORATORY: Of 11/07/2017, white count 8.1, hemoglobin 7.5, sodium 140, potassium 3.5, chloride 106, carbon dioxide 30, BUN 27, creatinine 2.83, calcium 7.4. ASSESSMENT AND PLAN: 1. Chronic renal failure/end-stage renal disease - tolerating hemodialysis. Dialysis for 3 hours to day, then we will repeat tomorrow 3.5 hours. Tolerating fluid removal. 2. Leg edema - max out fluid removal as tolerated with dialysis. 3. Anemia, continuing weekly Epogen.
[2017-11-07] MEDS: Ferrous Gluconate 324 MG TAB PO SCH (11:36)
[2017-11-07] MEDS: Magnesium Oxide 400 MG TAB PO SCH ×2 (11:37→20:42)
[2017-11-07] MEDS: Fish Oil 1,000 MG CAP PO SCH ×2 (11:37→20:42)
[2017-11-07] MEDS: Folic Acid 1 MG TAB PO SCH (11:37)
[2017-11-07] MEDS: Heparin 5,000 UNITS/ML VIAL SC SCH ×3 (11:37→20:42)
[2017-11-07] MEDS: NIFEdipine XL 30 MG TAB PO SCH (11:37)
--- NOTE | 2017-11-07 12:55 | PDOC.PN ---
- Subjective Encounter Start Date: 11/07/17 Encounter Start Time: 12:57 Subjective: No new complaints. -: No acute events overnight. - Objective Resuscitation Status: Resuscitation Status FULL:Full Resuscitation MAR Reviewed: Yes Vital Signs & Weight: Vital Signs (12 hours) Temp Pulse Resp BP Pulse Ox 11/07/17 12:26 97.8 F 85 16 126/67 96 11/07/17 11:37 75 11/07/17 08:00 97.9 F 75 20 98 Weight Admit Weight 205 lb Weight 205 lb I&O: 11/06/17 11/07/17 11/08/17 06:59 06:59 06:59 Intake Total 360 Balance 360 Result Diagrams: 11/07/17 05:53 11/07/17 05:53 Additional Labs: Accuchecks 11/07/17 11/07/17 11/06/17 11:35 05:40 19:43 POC Glucose 119 H 103 149 H 11/06/17 16:32 POC Glucose 121 H Phys Exam - Physical Examination HEENT: PERRLA, moist MMs, sclera anicteric Neck: supple, full ROM Respiratory: no wheezing, no rales, no rhonchi, clear to auscultation bilateral Cardiovascular: RRR, no significant murmur, no rub Gastrointestinal: soft, non-tender, no distention, positive bowel sounds Musculoskeletal: pulses present, edema present Neurological: non-focal, moves all 4 limbs Psychiatric: normal affect, A&O x 3 Skin: no rash, normal turgor Dx/Plan (1) ESRD (end stage renal disease) Code(s): N18.6 - END STAGE RENAL DISEASE Status: Chronic Comment: Stable. 2/ 2 chronic glomerulonephritis. Scheduled to get back to back to back dialysis. Day 2 today. (2) Hypertension Code(s): I10 - ESSENTIAL (PRIMARY) HYPERTENSION Status: Acute Qualifiers: Hypertension type: essential hypertension Qualified Code(s): I10 - Essential (primary) hypertension Comment: Controlled. Continue home medications. (3) DM2 (diabetes mellitus, type 2) Status: Acute Qualifiers: Diabetes mellitus buttermaker continuous churn insulin use: without custodial use Diabetes mellitus complication status: with kidney complications Diabetes mellitus complication detail: with chronic kidney disease Chronic kidney disease stage : stage 5, not on chronic dialysis Qualified Code(s): E11.22 - Type 2 diabetes mellitus with diabetic chronic kidney disease; N18.5 - Chronic kidney disease, stage 5; N18.5 - Chronic kidney disease, stage 5; N18.5 - Chronic kidney disease, stage 5; N18.5 - Chronic kidney disease, stage 5 Comment: Diet controlled. At goal. (4) GERD (gastroesophageal reflux disease) Code(s): K21.9 - GASTRO-ESOPHAGEAL REFLUX DISEASE WITHOUT ESOPHAGITIS Status: Acute Qualifiers: Esophagitis presence: without esophagitis Qualified Code(s): K21.9 - Gastro -esophageal reflux disease without esophagitis (5) Hypokalemia Code(s): E87.6 - HYPOKALEMIA Status: Resolved Comment: Repleted. (6) Anemia in chronic kidney disease, on chronic dialysis Code(s): N18.6 - END STAGE RENAL DISEASE; D63.1 - ANEMIA IN CHRONIC KIDNEY DISEASE; Z99.2 - DEPENDENCE ON RENAL DIALYSIS Status: Chronic Comment: Procrit with HD. - Plan cont current plan of care, plan discussed w/ family, DVT proph w/heparin * . Review of Systems - Medications/Allergies Allergies/Adverse Reactions: Allergies Allergy/AdvReac Type Severity Reaction Status Date / Time No Known Drug Allergies Allergy Unknown Verified 06/11/13 22:26 Medications: Current Medications Acetaminophen (Tylenol) 650 mg PO Q4H PRN PRN Reason: Headache/Fever or Pain Acetaminophen (Tylenol) 1,000 mg PO Q6H PRN PRN Reason: Moderate to Severe Pain (6-10) Cholecalciferol (Vitamin D3) 2,000 units PO DAILY [facility] Last Admin: 11/07/17 11:36 Dose: 2,000 units Dextrose/Water (Dextrose 50%) 25 gm SLOW IVP PRN PRN PRN Reason: Hypoglycemia Epoetin Leo (Procrit) 7,500 units SC Q7D [facility] Last Admin: 11/05/17 11:01 Dose: 7,500 units Ferrous Gluconate (Fergon) 324 mg PO DAILY [facility] Last Admin: 11/07/17 11:36 Dose: 324 mg Fish Oil (Fish Oil) 2,000 mg PO BID [facility] Last Admin: 11/07/17 11:37 Dose: 2,000 mg Folic Acid (Folvite) 1 mg PO DAILY [facility] Last Admin: 11/07/17 11:37 Dose: 1 mg Glucagon (Glucagon) 1 mg IM PRN PRN PRN Reason: Hypoglycemia Heparin Sodium (Porcine) (Heparin) 5,000 units SC TID [facility] Last Admin: 11/07/17 11:37 Dose: 5,000 units Dextrose/Water (D5w) 1,000 mls @ 0 mls/hr IV .Q0M PRN; As Directed PRN Reason: Hypoglycemia Latanoprost (Xalatan 0.005% Ophth Soln) 1 drop EA EYE HS [facility] Last Admin: 11/06/17 20:45 Dose: 1 drp Magnesium Oxide (Magnesium Oxide) 400 mg PO BID [facility] Last Admin: 11/07/17 11:37 Dose: 400 mg Nifedipine (Procardia Xl) 30 mg PO DAILY [facility] Last Admin: 11/07/17 11:37 Dose: 30 mg Ondansetron HCl (Zofran Odt) 4 mg PO Q6H PRN PRN Reason: Nausea/Vomiting Ondansetron HCl (Zofran) 4 mg IVP Q6H PRN PRN Reason: Nausea/Vomiting Sodium Chloride (Flush - Normal Saline) 10 ml IVF Q12HR [facility] Last Admin: 11/07/17 11:37 Dose: 10 ml Sodium Chloride (Flush - Normal Saline) 10 ml IVF PRN PRN PRN Reason: Saline Flush Tramadol HCl (Ultram) 50 mg PO BID PRN PRN Reason: Pain Last Admin: 11/06/17 05:35 Dose: 50 mg
[2017-11-07] MEDS ORDERED: Heparin 10,000 UNITS/ 10 ML VIAL ONE (17:31)
[2017-11-07] MEDS: Latanoprost 0.005% Ophth Soln 2.5 ml Bottle EA EYE SCH (20:48)
[2017-11-08 05:28] LABS: #Basophils 0.1 thou/uL (0.0-0.2); #Eosinphils 0.2 thou/uL (0.0-0.7); #Lymphocytes 1.7 thou/uL (1.20-3.40); #Neutrophils 6.6 thou/uL (1.40-6.50); %Eosinophils 2.6 % (0.0-10.0); %Lymphocytes 18.1 % (21.0-51.0); %Neutrophils 68.4 % (42.0-75.0); Hemoglobin 8.5 g/dL (12.0-16.0); Mean Corpuscular HGB CONC 32.6 g/dL (32.0-36.0); Mean Corpuscular Hemoglobin 30.8 pg (27.0-31.0); Mean Corpuscular Volume 94.5 fl (81.0-99.0); Mean Platelet Volume 6.3 fL (7.4-10.4); Platelet Count 268 thou/uL (130-400); Red Blood Cell (RBC) Count 2.77 mill/uL (4.20-5.40); White Blood Cell (WBC) Count 9.6 thou/uL (4.8-10.8)
[2017-11-08 05:49] LABS: Anion Gap 13 mmol/L (10-20); BUN (Urea Nitrogen) 18 mg/dL (9.8-20.1); Calc. Creatinine Clearance 22 mL/min (70-130); Calcium 7.8 mg/dL (7.8-10.44); Carbon Dioxide 29 mmol/L (23-31); Chloride 103 mmol/L (98-107); Estimated GFR-MDRD 15; Glucose 106 mg/dL (83-110); Potassium 3.5 mmol/L (3.5-5.1); Sodium 141 mmol/L (136-145)
[2017-11-08] MEDS: Fish Oil 1,000 MG CAP PO SCH ×2 (07:56→20:33)
[2017-11-08] MEDS: Heparin 5,000 UNITS/ML VIAL SC SCH ×3 (07:56→20:34)
[2017-11-08] MEDS: NIFEdipine XL 30 MG TAB PO SCH (07:56)
[2017-11-08] MEDS: Magnesium Oxide 400 MG TAB PO SCH ×2 (07:57→20:33)
[2017-11-08] MEDS: Ferrous Gluconate 324 MG TAB PO SCH (07:57)
[2017-11-08] MEDS: Folic Acid 1 MG TAB PO SCH (07:57)
--- NOTE | 2017-11-08 11:04 | PDOC.PN ---
- Subjective Encounter Start Date: 11/08/17 Encounter Start Time: 11:06 Subjective: No compliaints today. -: No acute events overnight. - Objective Resuscitation Status: Resuscitation Status FULL:Full Resuscitation MAR Reviewed: Yes Vital Signs & Weight: Vital Signs (12 hours) Temp Pulse Resp BP Pulse Ox 11/08/17 08:30 97.8 F 85 18 139/66 93 L 11/08/17 08:00 97.8 F 85 18 97 11/08/17 07:56 81 Weight Admit Weight 205 lb Weight 205 lb I&O: 11/07/17 11/08/17 11/09/17 06:59 06:59 06:59 Intake Total 360 480 240 Balance 360 480 240 Result Diagrams: 11/08/17 04:28 11/08/17 04:28 Additional Labs: Accuchecks 11/08/17 11/07/17 11/07/17 05:12 19:31 16:34 POC Glucose 113 H 154 H 126 H 11/07/17 11:35 POC Glucose 119 H Phys Exam - Physical Examination Constitutional: NAD HEENT: PERRLA, moist MMs, sclera anicteric Neck: no JVD, supple, full ROM Respiratory: no wheezing, no rales, no rhonchi, clear to auscultation bilateral Cardiovascular: RRR, no significant murmur, no rub Gastrointestinal: soft, non-tender, no distention, positive bowel sounds Musculoskeletal: pulses present, edema present Neurological: non-focal, moves all 4 limbs Psychiatric: normal affect, A&O x 3 Skin: no rash, normal turgor Dx/Plan (1) ESRD (end stage renal disease) Code(s): N18.6 - END STAGE RENAL DISEASE Status: Chronic Comment: Stable. 2/ 2 chronic glomerulonephritis. Has eceived HD on 2 consecutive days. WIll go for another session today w fluid removal. (2) Hypertension Code(s): I10 - ESSENTIAL (PRIMARY) HYPERTENSION Status: Acute Qualifiers: Hypertension type: essential hypertension Qualified Code(s): I10 - Essential (primary) hypertension Comment: Controlled. Continue home medications. 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 use: without half-way use Diabetes mellitus complication status: with kidney complications Diabetes mellitus complication detail: with chronic kidney disease Chronic kidney disease stage : on chronic dialysis Qualified Code(s): E11.22 - Type 2 diabetes mellitus with diabetic chronic kidney disease; N18.6 - End stage renal disease; N18.6 - End stage renal disease; N18.6 - End stage renal disease; N18.6 - End stage renal disease; Z99.2 - Dependence on renal dialysis; Z99.2 - Dependence on renal dialysis; Z99.2 - Dependence on renal dialysis; Z99.2 - Dependence on renal dialysis Comment: Diet controlled. At goal. (4) GERD (gastroesophageal reflux disease) Code(s): K21.9 - GASTRO-ESOPHAGEAL REFLUX DISEASE WITHOUT ESOPHAGITIS Status: Acute Qualifiers: Esophagitis presence: without esophagitis Qualified Code(s): K21.9 - Gastro -esophageal reflux disease without esophagitis (5) Hypokalemia Code(s): E87.6 - HYPOKALEMIA Status: Resolved Comment: Repleted. (6) Anemia in chronic kidney disease, on chronic dialysis Code(s): N18.6 - END STAGE RENAL DISEASE; D63.1 - ANEMIA IN CHRONIC KIDNEY DISEASE; Z99.2 - DEPENDENCE ON RENAL DIALYSIS Status: Chronic Comment: Ferous sulfate and Procrit. - Plan * . Review of Systems - Medications/Allergies Allergies/Adverse Reactions: Allergies Allergy/AdvReac Type Severity Reaction Status Date / Time No Known Drug Allergies Allergy Unknown Verified 06/11/13 22:26 Medications: Current Medications Acetaminophen (Tylenol) 650 mg PO Q4H PRN PRN Reason: Headache/Fever or Pain Acetaminophen (Tylenol) 1,000 mg PO Q6H PRN PRN Reason: Moderate to Severe Pain (6-10) Cholecalciferol (Vitamin D3) 2,000 units PO DAILY [facility] Last Admin: 11/08/17 07:56 Dose: 2,000 units Dextrose/Water (Dextrose 50%) 25 gm SLOW IVP PRN PRN PRN Reason: Hypoglycemia Epoetin Leo (Procrit) 7,500 units SC Q7D [facility] Last Admin: 11/05/17 11:01 Dose: 7,500 units Ferrous Gluconate (Fergon) 324 mg PO DAILY [facility] Last Admin: 11/08/17 07:57 Dose: 324 mg Fish Oil (Fish Oil) 2,000 mg PO BID [facility] Last Admin: 11/08/17 07:56 Dose: 2,000 mg Folic Acid (Folvite) 1 mg PO DAILY [facility] Last Admin: 11/08/17 07:57 Dose: 1 mg Glucagon (Glucagon) 1 mg IM PRN PRN PRN Reason: Hypoglycemia Heparin Sodium (Porcine) (Heparin) 5,000 units SC TID [facility] Last Admin: 11/08/17 07:56 Dose: 5,000 units Dextrose/Water (D5w) 1,000 mls @ 0 mls/hr IV .Q0M PRN; As Directed PRN Reason: Hypoglycemia Latanoprost (Xalatan 0.005% [facility]) 1 drop EA EYE HS [facility] Last Admin: 11/07/17 20:48 Dose: 1 drp Magnesium Oxide (Magnesium Oxide) 400 mg PO BID [facility] Last Admin: 11/08/17 07:57 Dose: 400 mg Nifedipine (Procardia Xl) 30 mg PO DAILY [facility] Last Admin: 11/08/17 07:56 Dose: 30 mg Ondansetron HCl (Zofran Odt) 4 mg PO Q6H PRN PRN Reason: Nausea/Vomiting Ondansetron HCl (Zofran) 4 mg IVP Q6H PRN PRN Reason: Nausea/Vomiting Sodium Chloride (Flush - Normal Saline) 10 ml IVF Q12HR [facility] Last Admin: 11/08/17 07:57 Dose: 10 ml Sodium Chloride (Flush - Normal Saline) 10 ml IVF PRN PRN PRN Reason: Saline Flush Tramadol HCl (Ultram) 50 mg PO BID PRN PRN Reason: Pain Last Admin: 11/06/17 05:35 Dose: 50 mg
[2017-11-08] MEDS ORDERED: Heparin 1,000 UNITS/ML VIAL ONE (11:11)
--- NOTE | 2017-11-08 11:24 | PRG ---
DATE OF SERVICE: 11/08/2017 SERVICE: Renal Medicine. SUBJECTIVE: Ms. Lemons is an 82-year-old white female who was initiated with dialysis due to the u remic signs and symptoms. Doing well. She tolerated her dialysis in the last few days. I have sche duled her back again to a 3.5 hour hemodialysis today with fluid removal. Leg edema is slightly impr oving. No complaints of chest pain or shortness of breath. OBJECTIVE: VITAL SIGNS: Blood pressure is 139/66, heart rate 85, respiratory rate 18, temperature 97.8, pulse o x 93%. GENERAL: Noted to be awake, alert, comfortable, not in overt distress, obese. SKIN: Adequate turgor. HEENT: Pale conjunctivae, anicteric sclerae. NECK: No neck mass, no carotid bruits, no JVD. CHEST: No deformities. LUNGS: Clear breath sounds, no wheezing, no crackles. HEART: Normal sinus rhythm. No murmur, no gallops or rubs. ABDOMEN: Globular, soft, nontender, no masses. EXTREMITIES: Positive for edema. MEDICATIONS: Of 11/08/2017 was reviewed. LABORATORY DATA: Of 11/08/2017, white count 9.6, hemoglobin 8.5. Sodium 141, potassium 3.5, chlorid e 103, carbon dioxide 29, BUN 18, creatinine 2.91, glucose 106, calcium 7.8. ASSESSMENT AND PLAN: 1. Chronic renal failure/end-stage renal disease - we will continue hemodialysis regimen. We plan t o do a 3.5 hour dialysis today. Again, fluid removal as tolerated by the patient. 2. Anemia, currently on weekly Epogen. 3. Chronic leg edema - slowly improving. Max out fluid removal with dialysis. 4. We will recheck base met, CBC, serum phosphorus, intact PTH in a.m.
[2017-11-08] MEDS: Latanoprost 0.005% Ophth Soln 2.5 ml Bottle EA EYE SCH (20:43)
[2017-11-09 05:33] LABS: #Basophils 0.1 thou/uL (0.0-0.2); #Eosinphils 0.3 thou/uL (0.0-0.7); #Lymphocytes 1.8 thou/uL (1.20-3.40); #Monocytes 0.9 thou/uL (0.11-0.59); #Neutrophils 6.1 thou/uL (1.40-6.50); %Basophils 0.7 % (0.0-1.0); %Eosinophils 3.2 % (0.0-10.0); %Lymphocytes 19.2 % (21.0-51.0); %Monocytes 9.8 % (0.0-10.0); %Neutrophils 67.1 % (42.0-75.0); Hemoglobin 7.7 g/dL (12.0-16.0); Mean Corpuscular HGB CONC 32.8 g/dL (32.0-36.0); Mean Corpuscular Volume 94.6 fl (81.0-99.0); Mean Platelet Volume 6.3 fL (7.4-10.4); Platelet Count 221 thou/uL (130-400); RBC Distribution Width 14.1 % (11.5-14.5); Red Blood Cell (RBC) Count 2.49 mill/uL (4.20-5.40); White Blood Cell (WBC) Count 9.1 thou/uL (4.8-10.8)
[2017-11-09 05:57] LABS: Anion Gap 7 mmol/L (10-20); BUN (Urea Nitrogen) 9 mg/dL (9.8-20.1); Calc. Creatinine Clearance 28 mL/min (70-130); Calcium 7.6 mg/dL (7.8-10.44); Carbon Dioxide 33 mmol/L (23-31); Chloride 101 mmol/L (98-107); Estimated GFR-MDRD 21; Glucose 94 mg/dL (83-110); Potassium 3.6 mmol/L (3.5-5.1); Sodium 137 mmol/L (136-145)
[2017-11-09 06:11] LABS: Phosphorus 1.3 mg/dL (2.3-4.7)
[2017-11-09] MEDS: NIFEdipine XL 30 MG TAB PO SCH (08:29)
[2017-11-09] MEDS: Magnesium Oxide 400 MG TAB PO SCH ×2 (08:31→20:34)
[2017-11-09] MEDS: Fish Oil 1,000 MG CAP PO SCH ×2 (08:31→20:34)
[2017-11-09] MEDS: Folic Acid 1 MG TAB PO SCH (08:32)
[2017-11-09] MEDS: Heparin 5,000 UNITS/ML VIAL SC SCH ×3 (08:32→20:34)
[2017-11-09] MEDS: Ferrous Gluconate 324 MG TAB PO SCH (08:32)
--- NOTE | 2017-11-09 09:32 | PRG ---
DATE OF SERVICE: 11/09/2017 RENAL MEDICINE SUBJECTIVE: Ms. Lemons is an 82-year-old white female who was admitted for initiation of dialysis. She was clinically uremic. She has received daily dialysis since she is doing well. She has also complained of leg edema which is improving with dialysis. We removed several liters with the dialysi s treatment. No other complaints today, no chest pain or shortness of breath. PHYSICAL EXAMINATION: VITAL SIGNS: Blood pressure 128/62, heart rate 96, respiratory rate 16, temperature 98.1, pulse ox 9 2%. GENERAL: Noted to be awake, alert, supine, comfortable, not in distress. SKIN: Adequate turgor. HEENT: Slightly pale conjunctivae, anicteric sclerae. NECK: No neck mass, no carotid bruits, no JVD. CHEST: No deformities. LUNGS: Clear breath sounds. No wheezing, no crackles. HEART: Normal sinus rhythm. No murmurs, no gallops, no rubs. ABDOMEN: Globular, soft, nontender, no masses. EXTREMITIES: Positive for edema. MEDICATIONS: Medications of 11/09/2017 reviewed. LABORATORY DATA: 1. Laboratories of 11/09/2017; white count 9.1, hemoglobin 7.7, sodium 137, potassium 3.6, chloride 101, carbon dioxide 33, BUN is 9, creatinine 2.21. 2. Phosphorus is noted at 1.3. 3. PTH 238. ASSESSMENT AND PLAN: 1. Secondary hyperparathyroidism - start calcitriol 0.25 mcg 1 tab every day. In addition, continue vitamin D3. 2. Hypophosphatemia. Consider liberalizing the patient's diet. 3. Review if the patient is on any phosphate binders also at the same time. 4. Chronic renal disease/end-stage renal disease. Continue 3 times a week hemodialysis. Tolerating said treatment, using no heparin. Awaiting outpatient dialysis placement. Case discussed with hosp italist regarding placement. 5. Leg edema, slowly improving with hemodialysis. 6. Hypertension. Continue current blood pressure meds. 7. Recheck basic metabolic panel and CBC in a.m. as well as phosphorus.
--- NOTE | 2017-11-09 11:48 | PDOC.PN ---
- Subjective Encounter Start Date: 11/09/17 Encounter Start Time: 11:50 Subjective: No new complaints. -: No acute events overnight. - Objective Resuscitation Status: Resuscitation Status FULL:Full Resuscitation MAR Reviewed: Yes Vital Signs & Weight: Vital Signs (12 hours) Temp Pulse Resp BP BP Pulse Ox 11/09/17 08:29 96 128/62 11/09/17 08:00 98.1 F 96 16 92 L 11/09/17 07:52 98.1 F 96 16 128/62 92 L 11/09/17 04:00 98.0 F 90 18 118/72 96 11/09/17 00:54 98.4 F 87 16 113/54 L 95 Weight Admit Weight 205 lb Weight 205 lb I&O: 11/08/17 11/09/17 11/10/17 06:59 06:59 06:59 Intake Total 480 480 Balance 480 480 Result Diagrams: 11/09/17 05:27 11/09/17 03:30 Additional Labs: Accuchecks 11/09/17 11/09/17 11/08/17 11:33 04:59 20:27 POC Glucose 131 H 101 135 H Phys Exam - Physical Examination Constitutional: NAD HEENT: PERRLA, moist MMs, sclera anicteric Neck: no JVD, supple, full ROM Respiratory: no wheezing, no rales, no rhonchi, clear to auscultation bilateral Cardiovascular: RRR, no significant murmur, no rub Gastrointestinal: soft, non-tender, no distention, positive bowel sounds Musculoskeletal: pulses present, edema present (b/l lower extremities) Neurological: non-focal, moves all 4 limbs Psychiatric: normal affect, A&O x 3 Skin: no rash, normal turgor Dx/Plan (1) Hypertension Code(s): I10 - ESSENTIAL (PRIMARY) HYPERTENSION Status: Acute Qualifiers: Hypertension type: essential hypertension Qualified Code(s): I10 - Essential (primary) hypertension Comment: Controlled and at goal. Continue home medications. (2) ESRD (end stage renal disease) Code(s): N18.6 - END STAGE RENAL DISEASE Status: Chronic Comment: Stable. 2/ 2 chronic glomerulonephritis. Has received HD on 3 consecutive days. Next session tomorrow. Outpatient HD being arranged. (3) DM2 (diabetes mellitus, type 2) Status: Acute Qualifiers: Diabetes mellitus detention insulin use: without meterman use Diabetes mellitus complication status: with kidney complications Diabetes mellitus complication detail: with chronic kidney disease Chronic kidney disease stage : on chronic dialysis Qualified Code(s): E11.22 - Type 2 diabetes mellitus with diabetic chronic kidney disease; N18.6 - End stage renal disease; N18.6 - End stage renal disease; N18.6 - End stage renal disease; N18.6 - End stage renal disease; Z99.2 - Dependence on renal dialysis; Z99.2 - Dependence on renal dialysis; Z99.2 - Dependence on renal dialysis; Z99.2 - Dependence on renal dialysis Comment: Diet controlled. At goal. (4) GERD (gastroesophageal reflux disease) Code(s): K21.9 - GASTRO-ESOPHAGEAL REFLUX DISEASE WITHOUT ESOPHAGITIS Status: Acute Qualifiers: Esophagitis presence: without esophagitis Qualified Code(s): K21.9 - Gastro -esophageal reflux disease without esophagitis (5) Anemia in chronic kidney disease, on chronic dialysis Code(s): N18.6 - END STAGE RENAL DISEASE; D63.1 - ANEMIA IN CHRONIC KIDNEY DISEASE; Z99.2 - DEPENDENCE ON RENAL DIALYSIS Status: Chronic Comment: Ferous sulfate and Procrit. (6) Hypokalemia Code(s): E87.6 - HYPOKALEMIA Status: Resolved Comment: Repleted. - Plan cont current plan of care, manager social responsibility, DVT proph w/heparin Drier Helper working on outpatient hemodialysis center. * . Review of Systems - Medications/Allergies Allergies/Adverse Reactions: Allergies Allergy/AdvReac Type Severity Reaction Status Date / Time No Known Drug Allergies Allergy Unknown Verified 06/11/13 22:26 Medications: Current Medications Acetaminophen (Tylenol) 650 mg PO Q4H PRN PRN Reason: Headache/Fever or Pain Acetaminophen (Tylenol) 1,000 mg PO Q6H PRN PRN Reason: Moderate to Severe Pain (6-10) Cholecalciferol (Vitamin D3) 2,000 units PO DAILY [facility] [place] Last Admin: 11/09/17 08:31 Dose: 2,000 units Dextrose/Water (Dextrose 50%) 25 gm SLOW IVP PRN PRN PRN Reason: Hypoglycemia Epoetin Leo (Procrit) 7,500 units SC Q7D [facility] [place] Last Admin: 11/05/17 11:01 Dose: 7,500 units Ferrous Gluconate (Fergon) 324 mg PO DAILY [facility] [place] Last Admin: 11/09/17 08:32 Dose: 324 mg Fish Oil (Fish Oil) 2,000 mg PO BID [facility] [place] Last Admin: 11/09/17 08:31 Dose: 2,000 mg Folic Acid (Folvite) 1 mg PO DAILY [facility] [place] Last Admin: 11/09/17 08:32 Dose: 1 mg Glucagon (Glucagon) 1 mg IM PRN PRN PRN Reason: Hypoglycemia Heparin Sodium (Porcine) (Heparin) 5,000 units SC TID [facility] [place] Last Admin: 11/09/17 08:32 Dose: 5,000 units Dextrose/Water (D5w) 1,000 mls @ 0 mls/hr IV .Q0M PRN; As Directed PRN Reason: Hypoglycemia Latanoprost (Xalatan 0.005% Ophth Soln) 1 drop EA EYE HS [facility] [place] Last Admin: 11/08/17 20:43 Dose: Not Given Magnesium Oxide (Magnesium Oxide) 400 mg PO BID [facility] [place] Last Admin: 11/09/17 08:31 Dose: 400 mg Nifedipine (Procardia Xl) 30 mg PO DAILY [facility] [place] Last Admin: 11/09/17 08:29 Dose: 30 mg Ondansetron HCl (Zofran Odt) 4 mg PO Q6H PRN PRN Reason: Nausea/Vomiting Ondansetron HCl (Zofran) 4 mg IVP Q6H PRN PRN Reason: Nausea/Vomiting Sodium Chloride (Flush - Normal Saline) 10 ml IVF Q12HR [facility] [place] Last Admin: 11/09/17 08:35 Dose: 10 ml Sodium Chloride (Flush - Normal Saline) 10 ml IVF PRN PRN PRN Reason: Saline Flush Tramadol HCl (Ultram) 50 mg PO BID PRN PRN Reason: Pain Last Admin: 11/06/17 05:35 Dose: 50 mg
[2017-11-09] MEDS: Latanoprost 0.005% Ophth Soln 2.5 ml Bottle EA EYE SCH (20:39)
[2017-11-10 06:01] LABS: #Eosinphils 0.4 thou/uL (0.0-0.7); #Lymphocytes 1.7 thou/uL (1.20-3.40); #Monocytes 0.8 thou/uL (0.11-0.59); #Neutrophils 5.9 thou/uL (1.40-6.50); %Basophils 0.3 % (0.0-1.0); %Eosinophils 4.4 % (0.0-10.0); %Lymphocytes 19.5 % (21.0-51.0); %Monocytes 9.4 % (0.0-10.0); %Neutrophils 66.4 % (42.0-75.0); Hemoglobin 7.6 g/dL (12.0-16.0); Mean Corpuscular Hemoglobin 31.4 pg (27.0-31.0); Mean Corpuscular Volume 95.2 fl (81.0-99.0); Mean Platelet Volume 6.4 fL (7.4-10.4); Platelet Count 239 thou/uL (130-400); RBC Distribution Width 14.1 % (11.5-14.5); Red Blood Cell (RBC) Count 2.44 mill/uL (4.20-5.40); White Blood Cell (WBC) Count 8.9 thou/uL (4.8-10.8)
[2017-11-10 06:24] LABS: Anion Gap 11 mmol/L (10-20); BUN (Urea Nitrogen) 15 mg/dL (9.8-20.1); Calc. Creatinine Clearance 17 mL/min (70-130); Calcium 7.7 mg/dL (7.8-10.44); Carbon Dioxide 31 mmol/L (23-31); Chloride 101 mmol/L (98-107); Estimated GFR-MDRD 12; Glucose 88 mg/dL (83-110); Phosphorus 1.5 mg/dL (2.3-4.7); Potassium 3.6 mmol/L (3.5-5.1); Sodium 139 mmol/L (136-145)
--- NOTE | 2017-11-10 08:49 | PRG ---
DATE OF SERVICE: 11/10/2017 SERVICE: Renal Medicine. SUBJECTIVE: Ms. Lemons is an 82-year-old white female who was admitted for uremic signs and sympto ms. Hemodialysis was initiated. She is currently undergoing dialysis. I am at the bedside supervis ing her dialysis. I have referred her for an options visit for peritoneal dialysis. The patient's d dez has said they might be interested in it. I get in touch with the PD nurse for them to be giv en an options visit. No other complaints today, no chest pain or shortness of breath. OBJECTIVE: VITAL SIGNS: Blood pressure 136/70, heart rate 81, respiratory rate 16, temperature 98.6, pulse ox 9 2%. GENERAL: Noted to be awake, comfortable, not in distress. SKIN: Adequate turgor. HEENT: She has slightly pale conjunctivae, anicteric sclerae. NECK: No neck mass, no carotid bruits, no JVD. CHEST: No deformities. LUNGS: Clear breath sounds, no wheezing, no crackles. HEART: Normal sinus rhythm. No murmur, no gallops, no rubs. ABDOMEN: Globular, soft, nontender, no masses. EXTREMITIES: Positive for edema. MEDICATIONS: Of 11/10/2017 was reviewed. LABORATORY DATA: Of 11/10/2017, white count 8.9, hemoglobin 7.6. Sodium 139, potassium 3.6, chlorid e 101, carbon dioxide 31, BUN 15, creatinine 3.67, glucose 88, calcium 7.7, phosphorus 1.5. Hemoglob in 7.6. ASSESSMENT AND PLAN: 1. Anemia - on weekly Epogen - currently on iron supplementation. P.r.n. blood transfusion for hemo globin less than 7. 2. Mild hypophosphatemia - patient encouraged to liberalize her diet. Dietary consult has been done . 3. Chronic renal failure/end-stage renal disease, currently on 3 times a week hemodialysis regimen. I am currently dialyzing the patient. We are not using any heparin with her. 4. My plan is simply to do a 3-hour hemodialysis with her today. Recheck base met and CBC and phosphorus in a.m.
[2017-11-10] MEDS: Heparin 5,000 UNITS/ML VIAL SC SCH ×3 (13:13→21:12)
[2017-11-10] MEDS: NIFEdipine XL 30 MG TAB PO SCH (13:17)
[2017-11-10] MEDS: Magnesium Oxide 400 MG TAB PO SCH ×2 (13:18→21:10)
[2017-11-10] MEDS: Ferrous Gluconate 324 MG TAB PO SCH (13:19)
[2017-11-10] MEDS: Folic Acid 1 MG TAB PO SCH (13:19)
[2017-11-10] MEDS: Fish Oil 1,000 MG CAP PO SCH ×2 (13:20→21:10)
--- NOTE | 2017-11-10 14:24 | PDOC.PN ---
- Subjective Encounter Start Date: 11/10/17 Encounter Start Time: 09:00 Pt seen for followup re: ESRD. Denies chest pain, shortness of breath, fevers or chills. - Objective Resuscitation Status: Resuscitation Status FULL:Full Resuscitation MAR Reviewed: Yes Vital Signs & Weight: Vital Signs (12 hours) Temp Pulse Resp BP BP Pulse Ox 11/10/17 13:17 92 114/69 11/10/17 12:16 97.5 F L 92 16 114/69 96 11/10/17 08:00 98.6 F 81 16 92 L 11/10/17 07:39 98.6 F 81 16 136/70 92 L Weight Admit Weight 205 lb Weight 205 lb I&O: 11/09/17 11/10/17 11/11/17 06:59 06:59 06:59 Intake Total 480 920 Balance 480 920 Result Diagrams: 11/10/17 05:50 11/10/17 05:50 Additional Labs: Accuchecks 11/10/17 11/10/17 11/09/17 12:09 05:03 20:01 POC Glucose 105 100 148 H 11/09/17 16:44 POC Glucose 122 H Phys Exam - Physical Examination Morbid obesity HEENT: moist MMs Neck: supple Respiratory: clear to auscultation bilateral Cardiovascular: RRR Gastrointestinal: soft Neurological: moves all 4 limbs Psychiatric: normal affect Dx/Plan (1) ESRD (end stage renal disease) Code(s): N18.6 - END STAGE RENAL DISEASE Status: Acute Comment: Awaiting dialysis chair, dialysis initiated during this hospitalization. 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 (3) GERD (gastroesophageal reflux disease) Code(s): K21.9 - GASTRO-ESOPHAGEAL REFLUX DISEASE WITHOUT ESOPHAGITIS Status: Chronic Qualifiers: Esophagitis presence: without esophagitis Qualified Code(s): K21.9 - Gastro -esophageal reflux disease without esophagitis (4) Hypertension Code(s): I10 - ESSENTIAL (PRIMARY) HYPERTENSION Status: Acute Qualifiers: Hypertension type: essential hypertension Qualified Code(s): I10 - Essential (primary) hypertension Comment: Monitor vital signs, titrate antihypertensives as needed. - Plan * . Review of Systems - Review of Systems Respiratory: negative: Cough, Dry, Shortness of Breath, Hemoptysis, SOB with Excertion, Pleuritic Pain, Sputum, Wheezing Cardiovascular: negative: chest pain, palpitations, orthopnea, paroxysmal nocturnal dyspnea, edema, light headedness - Medications/Allergies Allergies/Adverse Reactions: Allergies Allergy/AdvReac Type Severity Reaction Status Date / Time No Known Drug Allergies Allergy Unknown Verified 06/11/13 22:26 Medications: Current Medications Acetaminophen (Tylenol) 650 mg PO Q4H PRN PRN Reason: Headache/Fever or Pain Acetaminophen (Tylenol) 1,000 mg PO Q6H PRN PRN Reason: Moderate to Severe Pain (6-10) Cholecalciferol (Vitamin D3) 2,000 units PO DAILY [facility] Last Admin: 11/10/17 13:18 Dose: 2,000 units Dextrose/Water (Dextrose 50%) 25 gm SLOW IVP PRN PRN PRN Reason: Hypoglycemia Epoetin Leo (Procrit) 7,500 units SC Q7D [facility] Last Admin: 11/05/17 11:01 Dose: 7,500 units Ferrous Gluconate (Fergon) 324 mg PO DAILY [facility] Last Admin: 11/10/17 13:19 Dose: 324 mg Fish Oil (Fish Oil) 2,000 mg PO BID [facility] Last Admin: 11/10/17 13:20 Dose: 2,000 mg Folic Acid (Folvite) 1 mg PO DAILY [facility] Last Admin: 11/10/17 13:19 Dose: 1 mg Glucagon (Glucagon) 1 mg IM PRN PRN PRN Reason: Hypoglycemia Heparin Sodium (Porcine) (Heparin) 5,000 units SC TID [facility] Last Admin: 11/10/17 13:13 Dose: Not Given Dextrose/Water (D5w) 1,000 mls @ 0 mls/hr IV .Q0M PRN; As Directed PRN Reason: Hypoglycemia Latanoprost (Xalatan 0.005% Oph Soln) 1 drop EA EYE HS [facility] Last Admin: 11/09/17 20:39 Dose: 1 drp Magnesium Oxide (Magnesium Oxide) 400 mg PO BID [facility] Last Admin: 11/10/17 13:18 Dose: 400 mg Nifedipine (Procardia Xl) 30 mg PO DAILY [facility] Last Admin: 11/10/17 13:17 Dose: 30 mg Ondansetron HCl (Zofran Odt) 4 mg PO Q6H PRN PRN Reason: Nausea/Vomiting Ondansetron HCl (Zofran) 4 mg IVP Q6H PRN PRN Reason: Nausea/Vomiting Sodium Chloride (Flush - Normal Saline) 10 ml IVF Q12HR [facility] Last Admin: 11/10/17 13:22 Dose: 10 ml Sodium Chloride (Flush - Normal Saline) 10 ml IVF PRN PRN PRN Reason: Saline Flush Tramadol HCl (Ultram) 50 mg PO BID PRN PRN Reason: Pain Last Admin: 11/06/17 05:35 Dose: 50 mg
[2017-11-10] MEDS: traMADol HCl 50 MG TAB PO PRN (14:48)
[2017-11-10] MEDS: Latanoprost 0.005% Ophth Soln 2.5 ml Bottle EA EYE SCH (21:10)
[2017-11-11 06:29] LABS: #Basophils 0.1 thou/uL (0.0-0.2); #Eosinphils 0.5 thou/uL (0.0-0.7); #Lymphocytes 2.1 thou/uL (1.20-3.40); #Monocytes 0.9 thou/uL (0.11-0.59); #Neutrophils 5.4 thou/uL (1.40-6.50); %Basophils 0.9 % (0.0-1.0); %Eosinophils 5.3 % (0.0-10.0); %Lymphocytes 23.5 % (21.0-51.0); %Monocytes 9.5 % (0.0-10.0); %Neutrophils 60.8 % (42.0-75.0); Hemoglobin 8.7 g/dL (12.0-16.0); Mean Corpuscular HGB CONC 32.9 g/dL (32.0-36.0); Mean Corpuscular Hemoglobin 31.4 pg (27.0-31.0); Mean Corpuscular Volume 95.4 fl (81.0-99.0); Mean Platelet Volume 6.3 fL (7.4-10.4); Platelet Count 267 thou/uL (130-400); RBC Distribution Width 14.6 % (11.5-14.5); Red Blood Cell (RBC) Count 2.76 mill/uL (4.20-5.40); White Blood Cell (WBC) Count 8.9 thou/uL (4.8-10.8)
[2017-11-11 06:38] LABS: Anion Gap 9 mmol/L (10-20); BUN (Urea Nitrogen) 10 mg/dL (9.8-20.1); Calc. Creatinine Clearance 22 mL/min (70-130); Carbon Dioxide 31 mmol/L (23-31); Chloride 99 mmol/L (98-107); Estimated GFR-MDRD 16; Glucose 101 mg/dL (83-110); Potassium 3.8 mmol/L (3.5-5.1); Sodium 135 mmol/L (136-145)
[2017-11-11 06:41] LABS: Phosphorus 1.6 mg/dL (2.3-4.7)
[2017-11-11] MEDS: Fish Oil 1,000 MG CAP PO SCH ×2 (07:29→20:20)
[2017-11-11] MEDS: Heparin 5,000 UNITS/ML VIAL SC SCH ×3 (07:29→20:21)
[2017-11-11] MEDS: NIFEdipine XL 30 MG TAB PO SCH (07:30)
[2017-11-11] MEDS: Magnesium Oxide 400 MG TAB PO SCH ×2 (07:30→20:20)
[2017-11-11] MEDS: Ferrous Gluconate 324 MG TAB PO SCH (07:30)
[2017-11-11] MEDS: Folic Acid 1 MG TAB PO SCH (07:30)
[2017-11-11] MEDS ORDERED: Heparin 10,000 UNITS/ 10 ML VIAL ONE (07:38)
[2017-11-11 10:34] LABS: HBCM Index 0.06 S/CO (0-0.79); HBSAg Index 0.17 S/CO (0-0.99); Hep A IgM AB Non-Reactive (NonReactive); Hep A IgM S/CO 0.08 S/CO (0-0.79); Hep B Surf Ag Non-Reactive S/CO (NonReactive); Hep C IgG Ab Non-Reactive (NonReactive); Hep C Index 0.16 S/CO (0-0.79); Hepatitis B Core IGM Abs Non-Reactive (NonReactive)
--- NOTE | 2017-11-11 15:09 | PRG ---
DATE OF SERVICE: 11/11/2017 RENAL MEDICINE SUBJECTIVE: Ms. Lemons is an 82-year-old white female who was admitted for uremic signs and sympto ms. Dialysis was initiated. She underwent daily hemodialysis. She tolerated said treatment. In interim, she had a hemodialysis catheter, AV fistula placed. I had a long discussion with the dany ent and her family. They wish to proceed with peritoneal dialysis. For this reason, we will reconsu lt surgery for placement of PD catheter while the patient is still in the hospital. She voices no ne w complaints. She denies any chest pain or shortness of breath. PHYSICAL EXAMINATION: VITAL SIGNS: Blood pressure 122/71, heart rate 72, respiratory rate 16, temperature 97.9, pulse ox 9 6%. GENERAL: Awake, alert, comfortable, not in distress. SKIN: Adequate turgor. HEENT: She has slightly pale conjunctivae, anicteric sclerae. NECK: No neck mass, no carotid bruits, no JVD. CHEST: No deformities. LUNGS: Clear breath sounds, no wheezing, no crackles. HEART: Normal sinus rhythm. No murmurs, no gallops, no rubs. ABDOMEN: Globular, soft, nontender. No masses. EXTREMITIES: No edema, no deformities. MEDICATIONS: Medications of 11/11/2017 reviewed. LABORATORY DATA: Laboratories of 11/11/2017; white count 8.9, hemoglobin 8.7, hematocrit 26.3. Sodi um 135, potassium 3.8, chloride 99, carbon dioxide 31, BUN 10, creatinine 2.88, phosphorus is 1.6, an d calcium 8. ASSESSMENT AND PLAN: 1. Mild hypophosphatemia, slightly improved on a liberal diet. 2. Chronic renal failure/end-stage renal disease - continuing current maintenance hemodialysis 3 dean es a week. Family and patient set to do peritoneal dialysis. We will reconsult surgery for placemen t of PD catheter. 4. Anemia, on maintenance Epogen and iron supplementation. Overall, prognosis remains guarded. Agr ee with current management.
--- NOTE | 2017-11-11 15:11 | PDOC.PN ---
- Subjective Encounter Start Date: 11/11/17 Encounter Start Time: 09:40 Pt seen for followup re: end stage renal disease. Denies chest pain, shortness of breath, fevers or chills. - Objective Resuscitation Status: Resuscitation Status FULL:Full Resuscitation MAR Reviewed: Yes Vital Signs & Weight: Vital Signs (12 hours) Temp Pulse Resp BP Pulse Ox 11/11/17 08:00 97.9 F 72 16 95 11/11/17 07:46 97.9 F 72 16 122/71 96 11/11/17 07:30 85 Weight Admit Weight 205 lb Weight 205 lb I&O: 11/10/17 11/11/17 11/12/17 06:59 06:59 06:59 Intake Total 920 490 Balance 920 490 Result Diagrams: 11/11/17 06:05 11/11/17 06:05 Additional Labs: Accuchecks 11/11/17 11/11/17 11/10/17 11:47 05:16 19:33 POC Glucose 105 93 115 H 11/10/17 16:56 POC Glucose 107 Phys Exam - Physical Examination Constitutional: NAD HEENT: moist MMs, oral pharynx no lesions Neck: supple Respiratory: clear to auscultation bilateral Cardiovascular: RRR Gastrointestinal: soft Neurological: moves all 4 limbs Psychiatric: normal affect Dx/Plan (1) ESRD (end stage renal disease) Code(s): N18.6 - END STAGE RENAL DISEASE Status: Acute Comment: Pt leaning towards peritoneal dialysis long-term. Awaiting dialysis chair. (2) DM2 (diabetes mellitus, type 2) Status: Chronic Qualifiers: Diabetes mellitus shelter insulin use: without shelter use Diabetes mellitus complication status: with kidney complications Diabetes mellitus complication detail: with chronic kidney disease Chronic kidney disease stage : on chronic dialysis Qualified Code(s): E11.22 - Type 2 diabetes mellitus with diabetic chronic kidney disease; N18.6 - End stage renal disease; N18.6 - End stage renal disease; N18.6 - End stage renal disease; N18.6 - End stage renal disease; Z99.2 - Dependence on renal dialysis; Z99.2 - Dependence on renal dialysis; Z99.2 - Dependence on renal dialysis; Z99.2 - Dependence on renal dialysis Comment: Diet controlled, accuchecks at goal. (3) GERD (gastroesophageal reflux disease) Code(s): K21.9 - GASTRO-ESOPHAGEAL REFLUX DISEASE WITHOUT ESOPHAGITIS Status: Chronic Qualifiers: Esophagitis presence: without esophagitis Qualified Code(s): K21.9 - Gastro -esophageal reflux disease without esophagitis (4) Hypertension Code(s): I10 - ESSENTIAL (PRIMARY) HYPERTENSION Status: Acute Qualifiers: Hypertension type: essential hypertension Qualified Code(s): I10 - Essential (primary) hypertension Comment: controlled - Plan * . Review of Systems - Review of Systems Respiratory: negative: Cough, Dry, Shortness of Breath, Hemoptysis, SOB with Excertion, Pleuritic Pain, Sputum, Wheezing Cardiovascular: negative: chest pain, palpitations, orthopnea, paroxysmal nocturnal dyspnea, edema, light headedness - Medications/Allergies Allergies/Adverse Reactions: Allergies Allergy/AdvReac Type Severity Reaction Status Date / Time No Known Drug Allergies Allergy Unknown Verified 06/11/13 22:26 Medications: Current Medications Acetaminophen (Tylenol) 650 mg PO Q4H PRN PRN Reason: Headache/Fever or Pain Acetaminophen (Tylenol) 1,000 mg PO Q6H PRN PRN Reason: Moderate to Severe Pain (6-10) Cholecalciferol (Vitamin D3) 2,000 units PO DAILY [facility] Last Admin: 11/11/17 07:30 Dose: 2,000 units Dextrose/Water (Dextrose 50%) 25 gm SLOW IVP PRN PRN PRN Reason: Hypoglycemia Epoetin Leo (Procrit) 7,500 units SC Q7D [facility] Last Admin: 11/05/17 11:01 Dose: 7,500 units Ferrous Gluconate (Fergon) 324 mg PO DAILY [facility] Last Admin: 11/11/17 07:30 Dose: 324 mg Fish Oil (Fish Oil) 2,000 mg PO BID [facility] Last Admin: 11/11/17 07:29 Dose: 2,000 mg Folic Acid (Folvite) 1 mg PO DAILY [facility] Last Admin: 11/11/17 07:30 Dose: 1 mg Glucagon (Glucagon) 1 mg IM PRN PRN PRN Reason: Hypoglycemia Heparin Sodium (Porcine) (Heparin) 5,000 units SC TID [facility] Last Admin: 11/11/17 14:59 Dose: Not Given Dextrose/Water (D5w) 1,000 mls @ 0 mls/hr IV .Q0M PRN; As Directed PRN Reason: Hypoglycemia Latanoprost (Xalatan 0.005% Ophth Soln) 1 drop EA EYE HS [facility] Last Admin: 11/10/17 21:10 Dose: 1 drp Magnesium Oxide (Magnesium Oxide) 400 mg PO BID [facility] Last Admin: 11/11/17 07:30 Dose: 400 mg Nifedipine (Procardia Xl) 30 mg PO DAILY [facility] Last Admin: 11/11/17 07:30 Dose: 30 mg Ondansetron HCl (Zofran Odt) 4 mg PO Q6H PRN PRN Reason: Nausea/Vomiting Ondansetron HCl (Zofran) 4 mg IVP Q6H PRN PRN Reason: Nausea/Vomiting Sodium Chloride (Flush - Normal Saline) 10 ml IVF Q12HR [facility] Last Admin: 11/11/17 07:31 Dose: 10 ml Sodium Chloride (Flush - Normal Saline) 10 ml IVF PRN PRN PRN Reason: Saline Flush Tramadol HCl (Ultram) 50 mg PO BID PRN PRN Reason: Pain Last Admin: 11/10/17 14:48 Dose: 50 mg
[2017-11-11] MEDS ORDERED: CEFAZOLIN/Water 2 GM/20 ML SYRINGE SLOW IVP SCH (17:00)
[2017-11-11] MEDS: Latanoprost 0.005% Ophth Soln 2.5 ml Bottle EA EYE SCH (20:20)
[2017-11-12] MEDS: Heparin 5,000 UNITS/ML VIAL SC SCH ×3 (07:39→21:46)
[2017-11-12] MEDS: Fish Oil 1,000 MG CAP PO SCH ×2 (07:39→21:45)
[2017-11-12] MEDS: Magnesium Oxide 400 MG TAB PO SCH ×2 (07:39→21:45)
[2017-11-12] MEDS: NIFEdipine XL 30 MG TAB PO SCH (07:39)
[2017-11-12] MEDS: Ferrous Gluconate 324 MG TAB PO SCH (07:39)
[2017-11-12] MEDS: Folic Acid 1 MG TAB PO SCH (07:39)
--- NOTE | 2017-11-12 08:49 | PRG ---
DATE OF SERVICE: 11/12/2017. SUBJECTIVE: Ms. Lemons is an 82-year-old white female who was admitted for initiation of dialysis . She was admitted due to clinical uremic signs and symptoms. She has undergone her regular dialysi s at the hospital. On close discussion with the patient and family they want to pursue peritoneal di alysis. For this reason, Dr. Roman has been consulted for PD catheter placement. This morning she is undergoing dialysis. I am at the bedside supervising her dialysis. She is milton ating said treatment. We are using no heparin due to the planned surgery. PHYSICAL EXAMINATION: VITAL SIGNS: Blood pressure is 137/77, heart rate 73, respiratory rate 18, temperature 97.2, pulse o x 97%. GENERAL: Awake, alert, comfortable, not in distress. SKIN: Adequate turgor. HEENT: She has slightly pale conjunctivae, anicteric sclerae. NECK: No neck mass, no carotid bruits, no JVD. CHEST: No deformities. LUNGS: Clear breath sounds. No wheezing, no crackles. HEART: Normal sinus rhythm. No murmur, no gallops or rubs. ABDOMEN: Globular, soft, nontender, no masses. EXTREMITIES: No edema, no deformities. MEDICATIONS: 11/12/2017 - Reviewed. LABORATORY: 11/11/2017 - White count 8.9, hemoglobin 8.7, sodium 135, potassium 3.8, chloride 99, ca rbon dioxide 31, BUN 10, creatinine 2.88. Phosphorus is 1.6. ASSESSMENT AND PLAN: 1. End-stage renal disease, stable. Tolerating current hemodialysis regimen. My plan is to contin ue her 3-1/2 hours dialysis. There is a planned procedure to be done this afternoon -- placement of PD catheter. 2. Anemia on weekly Epogen, stable. Overall, agree with current management. We will recheck base m et and CBC and serum phosphorus. 3. Mild hypophosphatemia on liberal diet.
[2017-11-12] MEDS: Epoetin (ESRD) 20,000 UNITS/ML SC SCH (09:15)
--- NOTE | 2017-11-12 11:01 | PRG ---
DATE OF SERVICE: 11/11/2017 SUBJECTIVE: Ms. Brina Lemons is an 82-year-old female who placed a left arm primary fistula and a hemodialysis catheter on 11/05/2017. I have been asked to see her regarding placement of a perito marissa dialysis. The patient and her daughter were educated on peritoneal dialysis. PAST SURGICAL HISTORY: Left subclavian vein pacemaker, cholecystectomy, ORIF elbow. OBJECTIVE: GENERAL: She is morbidly obese. VITAL SIGNS: Height 4 foot, 9 inches, 205 pounds and 44 BMI. ABDOMEN: Soft and nontender. ASSESSMENT AND PLAN: End-stage renal disease, desires peritoneal dialysis. We will plan laparoscopic peritoneal dialysis catheter placed for tomorrow. Risk of infection, bleeding, reoperation, malfunc tion of the catheter, mechanical problems requiring laparoscopic or surgical revision have been discu ssed. We will plan this tomorrow.
[2017-11-12] MEDS ORDERED: Bupivacaine HCl 0.5%/Epinephrine 1:200,000/PF 30 ml Vial ONE (12:26)
[2017-11-12] MEDS ORDERED: CEFAZOLIN/Water 2 GM/20 ML SYRINGE ONE (12:43)
[2017-11-12] MEDS ORDERED: Heparin 10,000 UNITS/1 ML VIAL ONE (12:58)
[2017-11-12] MEDS ORDERED: Fentanyl 100 MCG/2 ML VIAL ONE (12:58)
[2017-11-12] MEDS ORDERED: Lidocaine 2% 10 ML INJ ONE (12:58)
[2017-11-12] MEDS ORDERED: Ondansetron HCl/PF 4 MG/2 ML Vial ONE (13:39)
[2017-11-12] MEDS ORDERED: PHENYLEPHRINE-NS 100 MCG/ML 10 ML SYRINGE ONE (13:39)
[2017-11-12] MEDS ORDERED: Glycopyrrolate 0.2 MG/ML 5 ML SYRINGE ONE (13:39)
[2017-11-12] MEDS ORDERED: Lidocaine 1% PF 5 ML VIAL ONE (13:39)
[2017-11-12] MEDS ORDERED: Propofol 200 MG/20 ML VIAL ONE (13:39)
--- NOTE | 2017-11-12 13:41 | PDOC.PN ---
- Subjective Encounter Start Date: 11/12/17 Encounter Start Time: 11:20 Pt seen for followup re: end stage renal disease. Denies chest pain, shortness of breath, fevers or chills. - Objective Resuscitation Status: Resuscitation Status FULL:Full Resuscitation MAR Reviewed: Yes Vital Signs & Weight: Vital Signs (12 hours) Temp Pulse Resp BP Pulse Ox 11/12/17 08:16 97.3 F L 73 18 137/77 97 11/12/17 08:00 97.6 F 87 18 97 11/12/17 07:39 87 11/12/17 06:00 97.8 F 87 18 108/61 97 Weight Admit Weight 205 lb Weight 205 lb I&O: 11/11/17 11/12/17 11/13/17 06:59 06:59 06:59 Intake Total 490 240 Balance 490 240 Result Diagrams: 11/11/17 06:05 11/11/17 06:05 Additional Labs: Accuchecks 11/12/17 11/11/17 11/11/17 05:05 22:54 16:00 POC Glucose 103 95 95 Phys Exam - Physical Examination Constitutional: NAD HEENT: moist MMs Neck: supple Respiratory: clear to auscultation bilateral Cardiovascular: RRR Gastrointestinal: soft Neurological: moves all 4 limbs Psychiatric: normal affect Skin: no rash Dx/Plan (1) ESRD (end stage renal disease) Code(s): N18.6 - END STAGE RENAL DISEASE Status: Acute Comment: Pt to go for peritoneal dialysis. Has dialysis chair. 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 use: without [facility] use Diabetes mellitus complication status: with kidney complications Diabetes mellitus complication detail: with chronic kidney disease Chronic kidney disease stage : on chronic dialysis Qualified Code(s): E11.22 - Type 2 diabetes mellitus with diabetic chronic kidney disease; N18.6 - End stage renal disease; N18.6 - End stage renal disease; N18.6 - End stage renal disease; N18.6 - End stage renal disease; Z99.2 - Dependence on renal dialysis; Z99.2 - Dependence on renal dialysis; Z99.2 - Dependence on renal dialysis; Z99.2 - Dependence on renal dialysis Comment: accuchecks at goal. (3) GERD (gastroesophageal reflux disease) Code(s): K21.9 - GASTRO-ESOPHAGEAL REFLUX DISEASE WITHOUT ESOPHAGITIS Status: Chronic Qualifiers: Esophagitis presence: without esophagitis Qualified Code(s): K21.9 - Gastro -esophageal reflux disease without esophagitis (4) Hypertension Code(s): I10 - ESSENTIAL (PRIMARY) HYPERTENSION Status: Acute Qualifiers: Hypertension type: essential hypertension Qualified Code(s): I10 - Essential (primary) hypertension Comment: controlled - Plan * . Review of Systems - Review of Systems Respiratory: negative: Cough, Dry, Shortness of Breath, Hemoptysis, SOB with Excertion, Pleuritic Pain, Sputum, Wheezing Cardiovascular: negative: chest pain, palpitations, orthopnea, paroxysmal nocturnal dyspnea, edema, light headedness - Medications/Allergies Allergies/Adverse Reactions: Allergies Allergy/AdvReac Type Severity Reaction Status Date / Time No Known Drug Allergies Allergy Unknown Verified 06/11/13 22:26 Medications: Current Medications Acetaminophen (Tylenol) 650 mg PO Q4H PRN PRN Reason: Headache/Fever or Pain Acetaminophen (Tylenol) 1,000 mg PO Q6H PRN PRN Reason: Moderate to Severe Pain (6-10) Cefazolin Sodium (Ancef) 2 gm SLOW IVP WILLCALL [facility] Stop: 11/12/17 17:01 Cholecalciferol (Vitamin D3) 2,000 units PO DAILY [facility] Last Admin: 11/12/17 07:38 Dose: Not Given Dextrose/Water (Dextrose 50%) 25 gm SLOW IVP PRN PRN PRN Reason: Hypoglycemia Epoetin Leo (Procrit) 7,500 units SC Q7D [facility] Last Admin: 11/12/17 09:15 Dose: 7,500 units Ferrous Gluconate (Fergon) 324 mg PO DAILY [facility] Last Admin: 11/12/17 07:39 Dose: Not Given Fish Oil (Fish Oil) 2,000 mg PO BID [facility] Last Admin: 11/12/17 07:39 Dose: Not Given Folic Acid (Folvite) 1 mg PO DAILY [facility] Last Admin: 11/12/17 07:39 Dose: Not Given Glucagon (Glucagon) 1 mg IM PRN PRN PRN Reason: Hypoglycemia Heparin Sodium (Porcine) (Heparin) 5,000 units SC TID [facility] Last Admin: 11/12/17 07:39 Dose: Not Given Dextrose/Water (D5w) 1,000 mls @ 0 mls/hr IV .Q0M PRN; As Directed PRN Reason: Hypoglycemia Latanoprost (Xalatan 0.005% Ophth Soln) 1 drop EA EYE HS [facility] Last Admin: 11/11/17 20:20 Dose: 1 drp Magnesium Oxide (Magnesium Oxide) 400 mg PO BID [facility] Last Admin: 11/12/17 07:39 Dose: Not Given Nifedipine (Procardia Xl) 30 mg PO DAILY [facility] Last Admin: 11/12/17 07:39 Dose: Not Given Ondansetron HCl (Zofran Odt) 4 mg PO Q6H PRN PRN Reason: Nausea/Vomiting Ondansetron HCl (Zofran) 4 mg IVP Q6H PRN PRN Reason: Nausea/Vomiting Sodium Chloride (Flush - Normal Saline) 10 ml IVF Q12HR [facility] Last Admin: 11/12/17 07:43 Dose: 10 ml Sodium Chloride (Flush - Normal Saline) 10 ml IVF PRN PRN PRN Reason: Saline Flush Tramadol HCl (Ultram) 50 mg PO BID PRN PRN Reason: Pain Last Admin: 11/10/17 14:48 Dose: 50 mg
[2017-11-12] MEDS ORDERED: Labetalol HCl 100 MG/20 ML VIAL ONE (13:56)
[2017-11-12] MEDS: traMADol HCl 50 MG TAB PO PRN (16:21)
--- NOTE | 2017-11-12 17:10 | RAD ---
CHEST ONE VIEW: 11/12/17 HISTORY: Followup. COMPARISON: Radiograph 11/05/17. FINDINGS: Dialysis catheter is in place with tip at the inferior SVC. Left IJ central venous catheter is in nae ce with tip also projecting over the superior SVC. Dual lead pacer is present. Mild blunting of the left lateral costophrenic sulcus. No pneumothorax. No large effusion. Advanced degenerative disease of the left glenohumeral joint and large degenerative disease of the ac romioclavicular joints. IMPRESSION: Mild blunting left lateral costophrenic sulcus concerning for small effusion versus increased mediast inal fat. POS: [facility]
--- NOTE | 2017-11-12 17:11 | OP ---
DATE OF PROCEDURE: 11/12/2017 PREOPERATIVE DIAGNOSIS: End-stage renal disease, functioning left arm fistula placed just a week ago , desires peritoneal dialysis access. POSTOPERATIVE DIAGNOSIS: End-stage renal disease, functioning left arm fistula placed just a week ag o, desires peritoneal dialysis access. PROCEDURE: Laparoscopic peritoneal dialysis catheter placement, double cuffed pigtail. SURGEON: Ti Roman M.D. ANESTHESIA: General. Local 0.5% Marcaine with epinephrine, 30 mL, mixed with 2% Xylocaine, 10 mL to epifanio volume mixture used. DESCRIPTION OF PROCEDURE: The patient was taken to the operating room. Under general anesthesia, ab bhat was prepped with ChloraPrep, draped in routine fashion. Bilateral subcostal incisions made and pneumoperitoneum to 15 mmHg were obtained with the Veress needle on the left subcostal area and ther e were omental adhesions to the upper abdomen from a prior open cholecystectomy. [facility], stab incision was made and a 5-port placed directed caudally avoiding these adhes ions. Omentopexy was not necessary due to these adhesions. A lower abdominal cavity was free of adh esions. Small bowel was free. There were no abnormalities. Paraumbilical left lower quadrant incis ion made and stab incision made just caudal and lateral to this. A stab incision was made. An 8 mm port placed through the counterincision periumbilical left lower quadrant directed caudally and the s ubcutaneous tissue penetrating the rectus sheath visualized laparoscopically penetrating the peritone um and caudally and double cuffed pigtail peritoneal dialysis catheter passed through this catheter p lacing internal cuff in the rectus sheath and the port removed using the [place] dissector placed to that planned exit site left lower quadrant directed to the counter incision, grabbing the catheter a nd pull it down through the tunneled, holding the grasper intraabdominally while placed an external c uff and the subcutaneous tissue below the skin. Subcutaneous tissues approximated with 3-0 Monocryl, skin with subdermal 4-0 Monocryl. Catheter irrigated with 1000 units heparin per mL, 10 mL, and cap applied. Pneumoperitoneum and irrigant evacuated. Hemostasis obtained and all skin incisions appro ximated with interrupted subdermal 4-0 Monocryl. DermaGlue and sterile dressings applied.
[2017-11-12] MEDS: Latanoprost 0.005% Ophth Soln 2.5 ml Bottle EA EYE SCH (21:46)
[2017-11-13 06:52] LABS: #Basophils 0.1 thou/uL (0.0-0.2); #Eosinphils 0.2 thou/uL (0.0-0.7); #Lymphocytes 1.3 thou/uL (1.20-3.40); #Monocytes 0.9 thou/uL (0.11-0.59); #Neutrophils 6.8 thou/uL (1.40-6.50); %Basophils 0.7 % (0.0-1.0); %Lymphocytes 13.9 % (21.0-51.0); %Monocytes 10.1 % (0.0-10.0); %Neutrophils 73.2 % (42.0-75.0); Hemoglobin 8.1 g/dL (12.0-16.0); Mean Corpuscular Hemoglobin 30.8 pg (27.0-31.0); Mean Corpuscular Volume 96.2 fl (81.0-99.0); Mean Platelet Volume 6.2 fL (7.4-10.4); Platelet Count 200 thou/uL (130-400); RBC Distribution Width 14.4 % (11.5-14.5); Red Blood Cell (RBC) Count 2.62 mill/uL (4.20-5.40); White Blood Cell (WBC) Count 9.2 thou/uL (4.8-10.8)
[2017-11-13 07:11] LABS: Anion Gap 10 mmol/L (10-20); BUN (Urea Nitrogen) 12 mg/dL (9.8-20.1); Calc. Creatinine Clearance 19 mL/min (70-130); Calcium 7.9 mg/dL (7.8-10.44); Carbon Dioxide 30 mmol/L (23-31); Chloride 100 mmol/L (98-107); Estimated GFR-MDRD 14; Glucose 90 mg/dL (83-110); Phosphorus 3.7 mg/dL (2.3-4.7); Potassium 4.3 mmol/L (3.5-5.1); Sodium 136 mmol/L (136-145)
[2017-11-13 08:16] VITALS: BP 123/73
[2017-11-13] MEDS: Ferrous Gluconate 324 MG TAB PO SCH (08:31)
[2017-11-13] MEDS: Magnesium Oxide 400 MG TAB PO SCH (08:31)
[2017-11-13] MEDS: Fish Oil 1,000 MG CAP PO SCH (08:31)
[2017-11-13] MEDS: Heparin 5,000 UNITS/ML VIAL SC SCH (08:31)
[2017-11-13] MEDS: NIFEdipine XL 30 MG TAB PO SCH (08:31)
[2017-11-13] MEDS: Folic Acid 1 MG TAB PO SCH (08:31)
[2017-11-13 09:38] VITALS: TEMP 98.1
[2017-11-13] MEDS: traMADol HCl 50 MG TAB PO PRN (11:19)
--- NOTE | 2017-11-13 13:32 | DIS ---
PRIMARY CARE PHYSICIAN: Dr. Herber Bowling DATE OF ADMISSION: 11/04/2017 DATE OF DISCHARGE: 11/13/2017 DISCHARGE DIAGNOSIS: End-stage renal disease. CONDITION ON DAY OF DISCHARGE: Stable. I assessed Ms. Lemons on the day of discharge. She denies any chest pain or shortness of breath. Vital signs are stable. S1 and S2 are heard, regular. Lungs are clear to auscultation bilaterally. DISCHARGE MEDICATIONS: Her furosemide was discontinued. She has been started on Epogen 7500 units subcutaneously every week. Otherwise, her medications were continued as dictated on history and physical note from 11/04/2017. CONSULTATIONS DURING THIS HOSPITALIZATION: Nephrology, Dr. Steinberg and General Surgery, Dr. Roman. PROCEDURES DURING THIS HOSPITALIZATION: 1. On 11/05/2017, Ms. Lemons had a right IJ cuffed tunnel hemodialysis catheter, left IJ central line and left arm primary fistula. 2. On 11/12/2017, she underwent laparoscopic peritoneal dialysis catheter placement. HOSPITAL COURSE: Ms. Lemons is a pleasant 82-year-old lady who was admitted to [facility] on 11/05/2017 for end-stage renal disease. Renal ultrasound showed evidence for medical renal disease and multiple left renal cysts. She was seen by Nephrology Service and by General Surgery Service. She underwent the procedures described above during this hospitalization. She was started on hemodialysis. She is being discharged home for hemodialysis as outpatient on Thursday, Thursday and Thursday. She also had a peritoneal dialysis catheter placed for eventual transition to peritoneal dialysis. On the day of discharge, she has a white count of 9200, hemoglobin 8.1, platelet count 200,000, normal electrolytes, normal blood urea nitrogen and elevated creatinine of 3.23. Many thanks for allowing me to participate in your patient's care. Please feel free to contact me with any questions or concerns. DISCHARGE DESTINATION: Home. TOTAL AMOUNT OF TIME SPENT COORDINATING THIS DISCHARGE: 33 minutes. ANNEMARIE
== END 2017-11-13 13:32 | disposition home or self-care (01) | DRG 673 ==
LOC: ERS 10:20 → 2NO 13:12 → T4-B 11-05 17:34
PROVIDERS: ADMIT Internal Medicine; ATTEND Internal Medicine
PROC: 031C0ZF Bypass Left Radial Artery to Lower Arm Vein, Open Approach (ICD-10-PCS; principal; 2017-11-05)
PROC: 02HV33Z Insertion of Infusion Device into Superior Vena Cava, Percutaneous Approach (ICD-10-PCS; 2017-11-05)
PROC: 5A1D70Z Performance of Urinary Filtration, Intermittent, Less than 6 Hours Per Day (ICD-10-PCS; 2017-11-05)
PROC: 3E0T3BZ Introduction of Anesthetic Agent into Peripheral Nerves and Plexi, Percutaneous Approach (ICD-10-PCS; 2017-11-05)
PROC: 5A1D70Z Performance of Urinary Filtration, Intermittent, Less than 6 Hours Per Day (ICD-10-PCS; 2017-11-06)
PROC: 5A1D70Z Performance of Urinary Filtration, Intermittent, Less than 6 Hours Per Day (ICD-10-PCS; 2017-11-07)
PROC: 5A1D70Z Performance of Urinary Filtration, Intermittent, Less than 6 Hours Per Day (ICD-10-PCS; 2017-11-08)
PROC: 5A1D70Z Performance of Urinary Filtration, Intermittent, Less than 6 Hours Per Day (ICD-10-PCS; 2017-11-10)
PROC: 0WHG43Z Insertion of Infusion Device into Peritoneal Cavity, Percutaneous Endoscopic Approach (ICD-10-PCS; 2017-11-12)
PROC: 5A1D70Z Performance of Urinary Filtration, Intermittent, Less than 6 Hours Per Day (ICD-10-PCS; 2017-11-12)
DX: I12.0 Hypertensive chronic kidney disease with stage 5 chronic kidney disease or end stage renal disease (principal); N18.6 End stage renal disease; N17.9 Acute kidney failure, unspecified; D63.1 Anemia in chronic kidney disease; E11.22 Type 2 diabetes mellitus with diabetic chronic kidney disease; E66.01 Morbid (severe) obesity due to excess calories; E83.39 Other disorders of phosphorus metabolism; N25.81 Secondary hyperparathyroidism of renal origin; Z68.41 Body mass index [BMI] 40.0-44.9, adult; Q61.02 Congenital multiple renal cysts; K21.9 Gastro-esophageal reflux disease without esophagitis; Z99.2 Dependence on renal dialysis; E87.6 Hypokalemia; E78.5 Hyperlipidemia, unspecified; D50.9 Iron deficiency anemia, unspecified; R60.0 Localized edema; Z79.4 Long term (current) use of insulin; R31.9 Hematuria, unspecified; R80.9 Proteinuria, unspecified
CPT/HCPCS: 36415; 36416; 71045; 76001; 76770; 80048; 80074; 83970; 84100; 85025; 87340; 90935; 93005; 93010; 93970; A4216; C1752; C1769; G0257; G0365; G8978-GP-CK; G8979-GP-CJ; J0670; J0690; J1644; J2001; J2250; J2370; J2405; J2704; J2720; J3010; Q4081

== ENCOUNTER 2017-11-20 13:28 | Emergency (ER) | payer MEDICARE ==
--- NOTE | 2017-11-20 14:47 | CT ---
CT BRAIN WITHOUT CONTRAST: Date: 11/20/17 HISTORY: 82-year-old female with fall prior to dialysis. Patient had last dose of heparin two days ago. Headac he. FINDINGS: No evidence of acute infarct, hemorrhage, midline shift, or abnormal extra-axial fluid collections ar e seen. 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 The ventricular size is appropriate and the basilar cisterns are paten t. The bony calvarium is intact. The visualized paranasal sinuses and mastoid air cells are well aera sherry. IMPRESSION: No CT evidence of acute intracranial process. POS: [facility]
[2017-11-20 17:41] LABS: Base Excess-Venous 5.4 mmol/L (0 (+/- 2.5)); Bicarbonate (HCO3v) 28.8 mmol/L (1.0-85.0); CO2 Tension (PvCO2) 37.1 mmHg (41.0-51.0); Calcium, Ionized 1.06 mmol/L (1.12-1.32); Hemoglobin - Calc 12.8 g/dL (12.0-18.0); Lactate 1.93 mmol/L (0.50-2.20); O2 Tension (PvO2) 34.3 mmHg (35.0-45.0); Potassium 4.7 mmol/L (3.4-4.7); T. Carbon Dioxide 29.9 mmol/L (1.0-85.0); pH (Venous) 7.498 (7.35-7.45); vO2 Saturation-calc 71.7 % (94-98)
== END 2017-11-20 18:05 | disposition home or self-care (01) ==
LOC: ERS 13:28
DX: S00.03XA Contusion of scalp, initial encounter (principal); E11.9 Type 2 diabetes mellitus without complications; E78.5 Hyperlipidemia, unspecified; I11.0 Hypertensive heart disease with heart failure; I50.9 Heart failure, unspecified; D50.9 Iron deficiency anemia, unspecified; Z99.2 Dependence on renal dialysis; Z79.899 Other long term (current) drug therapy; W17.89XA Other fall from one level to another, initial encounter
CPT/HCPCS: 70450; 82330; 82803; 83605; 85014

== ENCOUNTER 2018-05-31 10:09 | Inpatient (IN) | payer MEDICARE ==
[2018-05-31 10:43] LABS: #Eosinphils 0.1 thou/uL (0.0-0.7); #Lymphocytes 1.1 thou/uL (1.20-3.40); #Monocytes 1.2 thou/uL (0.11-0.59); #Neutrophils 10.5 thou/uL (1.40-6.50); %Basophils 0.4 % (0.0-1.0); %Eosinophils 0.7 % (0.0-10.0); %Lymphocytes 8.3 % (21.0-51.0); %Monocytes 9.2 % (0.0-10.0); %Neutrophils 81.4 % (42.0-75.0); Hemoglobin 11.7 g/dL (12.0-16.0); Mean Corpuscular HGB CONC 32.6 g/dL (32.0-36.0); Mean Corpuscular Hemoglobin 30.6 pg (27.0-31.0); Mean Corpuscular Volume 93.9 fL (78.0-98.0); Mean Platelet Volume 6.6 fL (7.4-10.4); Platelet Count 485 thou/uL (130-400); Red Blood Cell (RBC) Count 3.81 mill/uL (4.20-5.40); White Blood Cell (WBC) Count 12.9 thou/uL (4.8-10.8)
[2018-05-31 10:46] LABS: INR-International Normal Ratio 2.3; Prothrombin Time 25.2 SEC (12.0-14.7)
[2018-05-31 10:47] LABS: PTT 50.4 SEC (22.9-36.1)
[2018-05-31 11:07] LABS: CKMB 2.2 ng/mL (0-6.6)
[2018-05-31 11:15] LABS: Troponin I 0.472 ng/mL (< 0.028)
[2018-05-31] MEDS ORDERED: Aspirin 325 MG TAB ONE (11:25)
--- NOTE | 2018-05-31 11:41 | CT ---
CT BRAIN WITHOUT CONTRAST: Date: 05/31/18 HISTORY: Altered mental status. COMPARISON: CT brain dated 11/20/17. FINDINGS: There is chronic right frontal encephalomalacia. Moderate volume loss. No acute hemorrhage or infarct . No acute hemorrhage. No midline shift or mass effect. Calvarium is intact. Paranasal sinuses and mast oids are clear. IMPRESSION: Chronic changes. No acute intracranial abnormality. POS: [facility]
[2018-05-31 12:14] LABS: Bilirubin Negative (Negative); Blood, Urine Moderate (Negative); Clarity TURBID (Clear); Glucose, Urine (Dipstick) Negative (Negative); Leukocyte Large (Negative); Nitrite Negative (Negative); Protein, Urine (Dipstick) > or equal to 300 mg/dL (Neg-Trace); Urobilinogen 0.2 mg/dL (0.2-1.0); pH, Urine 6.5 (5.0-9.0)
[2018-05-31 12:17] LABS: Squamous Epithelial 0-3 HPF (0-3)
[2018-05-31 12:20] LABS: Yeast-AUWi Flag 990.5 (0-25.0)
--- NOTE | 2018-05-31 12:25 | RAD ---
PORTABLE CHEST: Date: 05/31/18 HISTORY: Slurred speech, severe weakness. COMPARISON: 11/12/17. FINDINGS: Heart size is enlarged. Pacemaker is present. The lungs are clear of infiltrates. There are arthritic changes of the left shoulder. IMPRESSION: Mild cardiomegaly. No acute findings. POS: [facility]
[2018-05-31 12:27] LABS: Bacteria/HPF 4+ HPF (None Seen); Hyaline Casts/LPF 0-3 HYALINE CAST LPF (0-3 Hyaline); Yeast-All Forms None Seen HPF (None Seen)
[2018-05-31 12:28] LABS: Manual Microscopic Reviewed? No Path Casts Seen
--- NOTE | 2018-05-31 12:35 | ULT ---
ULTRASOUND VENOUS BILATERAL: History: Pain. Comparison: None. FINDINGS: Real-time grayscale, color doppler, and spectral analysis of bilateral lower extremity venous system was performed. Common femoral, femoral, and proximal portion of the greater saphenous and deep femora l veins as well as popliteal and posterior tibial veins were interrogated. Patient was unable to tole rate compression. There is normal flow. IMPRESSION: No deep venous thrombosis. Mild soft tissue edema. POS: [facility]
[2018-05-31 12:41] LABS: ALT (SGPT) 14 U/L (8-55); AST (SGOT) 13 U/L (5-34); Albumin 2.6 g/dL (3.4-4.8); Alkaline Phosphatase 155 U/L (40-150); Anion Gap 24 mmol/L (10-20); BUN (Urea Nitrogen) 108 mg/dL (9.8-20.1); Bilirubin, Total 0.3 mg/dL (0.2-1.2); Calc. Creatinine Clearance 0 mL/min (70-130); Calcium 9.3 mg/dL (7.8-10.44); Carbon Dioxide 23 mmol/L (23-31); Chloride 89 mmol/L (98-107); Estimated GFR-MDRD 5; Globulin 3.7 g/dL (2.4-3.5); Glucose 116 mg/dL (83-110); Protein, Total 6.3 g/dL (6.0-8.3); Sodium 133 mmol/L (136-145)
[2018-05-31 12:47] LABS: Potassium 2.7 mmol/L (3.5-5.1)
[2018-05-31] MEDS ORDERED: cefTRIAXone\\ROCEPHIN 1 GM VIAL ONE (12:50)
[2018-05-31] MEDS ORDERED: Potassium Chloride 20 MEQ TAB ONE (12:58)
[2018-05-31 14:33] LABS: Troponin I 0.475 ng/mL (< 0.028)
[2018-05-31] MEDS ORDERED: Potassium Chloride 20 MEQ TAB PO SCH (15:45)
[2018-05-31 15:58] LABS: #Basophils 0.1 thou/uL (0.0-0.2); #Eosinphils 0.1 thou/uL (0.0-0.7); #Lymphocytes 1.3 thou/uL (1.20-3.40); #Monocytes 1.1 thou/uL (0.11-0.59); #Neutrophils 8.9 thou/uL (1.40-6.50); %Basophils 0.6 % (0.0-1.0); %Eosinophils 0.9 % (0.0-10.0); %Lymphocytes 11.5 % (21.0-51.0); %Monocytes 9.7 % (0.0-10.0); %Neutrophils 77.2 % (42.0-75.0); Hemoglobin 10.8 g/dL (12.0-16.0); Mean Corpuscular HGB CONC 32.1 g/dL (32.0-36.0); Mean Corpuscular Hemoglobin 30.1 pg (27.0-31.0); Mean Corpuscular Volume 93.9 fL (78.0-98.0); Mean Platelet Volume 5.9 fL (7.4-10.4); Platelet Count 394 thou/uL (130-400); RBC Distribution Width 15.8 % (11.5-14.5); White Blood Cell (WBC) Count 11.5 thou/uL (4.8-10.8)
[2018-05-31 16:30] LABS: Anion Gap 25 mmol/L (10-20); BUN (Urea Nitrogen) 108 mg/dL (9.8-20.1); Calc. Creatinine Clearance 0 mL/min (70-130); Calcium 8.8 mg/dL (7.8-10.44); Carbon Dioxide 21 mmol/L (23-31); Chloride 93 mmol/L (98-107); Estimated GFR-MDRD 5; Glucose 93 mg/dL (83-110); Sodium 136 mmol/L (136-145)
[2018-05-31 16:32] LABS: Critical Call Chem Troponin I RESULT DECREASING; Troponin I 0.464 ng/mL (< 0.028)
[2018-05-31] MEDS: Sodium Chloride 0.9% 1,000 ML IV SCH (18:30)
--- NOTE | 2018-05-31 21:37 | HP ---
CHIEF COMPLAINT: Falls. HISTORY OF PRESENT ILLNESS: This patient is an 83-year-old female who presented to the emergency dep artment. The patient has a history of end-stage renal disease and is on peritoneal dialysis. The pa luis was also diagnosed with atrial fibrillation at some point and has been on Coumadin therapy and [facility]. She has been in a fairly good therapeutic range. 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 She did, however, develop some pain in her legs a couple of weeks ago right upper inner thigh and left posterior calf, primarily. She saw Dr. Bowling, her PCP who was not sure if thi s was a neuropathic pain or if this might be infection. He started her on 300 mg of gabapentin b.i.d . and cefdinir for 7 days. Subsequently, the patient has started falling due to weakness in her legs . She has also had some lethargy and increased confusion during that time as well. Today, she ultim ately presented via the Emergency Department to investigate this and what they felt might have been s ome slurred speech as well. One of the patient's primary concern is the discomfort that she experien jose roberto in her legs. She is not aware of having any major injuries with falling, although she did fall o n her buttocks at one point and describes it as being a bit sore. REVIEW OF SYSTEMS: The patient's appetite has been fair. She is eating protein with every meal. Sh e does continue to void about 100 mL per day. She is tolerating the dialysis well. Otherwise, revie w of systems is negative except for those things mentioned in the history of present illness. Specif ically, she has had no significant chest pain or shortness of breath. PAST MEDICAL HISTORY: Notable for end-stage renal disease, diabetes which is diet controlled, hypert ension, hyperlipidemia, glaucoma, macular degeneration, degenerative joint disease, history of duoden al ulcer, atrial fibrillation followed by Dr. Nascimento. PAST SURGICAL HISTORY: Cholecystectomy, pacemaker placement. She also has a hemodialysis fistula pl aced in the left upper extremity. SOCIAL HISTORY: The patient lives at home with her family. She occasionally has some alcohol consum ption. Her daughters are her surrogate decision makers and primary caretakers. FAMILY HISTORY: Reviewed, but nothing contributory to this patient's current stay. ALLERGIES: None. CURRENT MEDICATIONS: ICAPS 4 p.o. daily, omega-3 two p.o. daily, folic acid 800 mcg p.o. daily, ferr ous gluconate 1 tab p.o. daily, magnesium oxide 400 mg 1 tab daily, D3 1000 international units every day, Super B complex 1 p.o. daily, tramadol p.r.n. pain, Epogen with dialysis, Coumadin 2.5 mg p.o. q.6 days per week and gabapentin 100 mg p.o. b.i.d. PHYSICAL EXAMINATION: VITAL SIGNS: At presentation, pulse was 98, respirations 16, temperature 97.9, pulse got up to over 102. Most recent vitals; BP was 86/60, pulse 80, respirations 16. GENERAL APPEARANCE: The patient is in no distress. She is awake and conversant, may be slightly con fused. HEENT: PERRL. No OP lesions. HEART: Regular with a 2/6 murmur at the left border. LUNGS: Clear to auscultation bilaterally with no wheezes or rales. ABDOMEN: Soft, nontender, nondistended, positive bowel sounds, no masses, no organomegaly. EXTREMITIES: Warm and dry. She does have a very tender hematoma in the left medial upper thigh and the left posterior calf with some other mild scattered bruising. IMAGING DATA: Head CT, some chronic ischemic changes, nothing acute. Chest x-ray, borderline cardio megaly, otherwise nothing acute. Lower extremity venous Doppler negative for DVT. EKG shows atrial fibrillation with RVR at 112. LABORATORY DATA: White count 11.5, hemoglobin 10.8, platelets 394. Sodium 133, potassium 2.7, chlor ambrosio 89, CO2 23, BUN 108, creatinine 7.58, glucose 116, AST 13, ALT 14, alkaline phosphatase 155, trop onin 0.47 x2. Urinalysis is notable for too numerous to count white cells, large leukocyte esterase, 4+ bacteria. Lactic acid was 1.2, PT was 25.2, INR 2.3. IMPRESSION AND PLAN: 1. Possible urinary tract infection. We will cover with Rocephin. She received a dose in the emerg ency department. We will follow up on urine and blood cultures. Could be accounting for some of her current symptoms. 2. Possible adverse reaction to gabapentin resulting in some confusion and falls. This will be disc ontinued as it does not appear that her lower extremity pain is due to neuropathy, but more likely he matomas. 3. Atrial fibrillation. Patient has borderline tachycardia. She has been having falls and clearly has some hematomas on her legs which apparently preceded the falls concerning for her continuing on t he Coumadin. We will consult Dr. Nascimento in order to help make determinations about how this should be addressed going forward. 4. Lower extremity hematoma is likely from the Coumadin therapy, although she appears to have been f airly therapeutic. 5. Chronic kidney disease on dialysis. Dr. Steinberg has been consulted. We will continue with her perit fink dialysis. 6. Hypotension. Patient has received 500 mL bolus. I ordered a second and will continue to monitor her pressures on telemetry. 7. Hypokalemia. Patient received supplementation in the emergency department. 8. Mild anemia.
[2018-05-31] MEDS: Acetaminophen 325 MG TAB PO PRN (22:32)
--- NOTE | 2018-05-31 23:20 | CON ---
DATE OF ADMISSION: 05/31/2018 DATE OF CONSULTATION: 05/31/2018 INDICATION FOR CONSULTATION: An 83-year-old female with a history of intermittent atrial fibrillatio n, status post pacemaker insertion, who has been complaining of increasing weakness and confusion. S he has end-stage renal disease, we were asked to see her due to also some lower extremity bruising or small hematomas. HISTORY OF PRESENT ILLNESS: This very unfortunate 83-year-old female who has been followed by me for a couple of years now. She underwent a pacemaker insertion about 3-4 years ago due to complete AV h eart block. She also has a history of intermittent atrial fibrillation and has been on Coumadin. Sarika blandon also has end-stage renal disease for which she takes peritoneal dialysis. Recently, she started co mplaining of some pain in the lower extremities and was noted to have several small hematoma areas, w hich appeared to be possibly DVTs, but there was no evidence of thrombosis on a venous study and appe ars to be just small hematomas. Her INR has been elevated according to the family as much as up to 2 .6. Her last INR was 2.3 and does not appear to be significantly elevated in the interim in last cou ple of weeks. She has been having ongoing problems with increasing weakness, confusion, some slurred speech and not being able to walk and was brought to the emergency room due to generalized weakness and the other symptoms. She had been recently started on gabapentin approximately a week ago and I s uspect this is causing some of the dizziness and weakness. This medicine is now being held and hopef ully her symptoms will improve. She has been on Coumadin in the past for atrial fibrillation. She h as also been placed on red yeast rice, we discontinue this as her INR had been somewhat unstable and was thought to be possibly due to red yeast rice. Her peritoneal dialysis has been managed by Dr. Jay barker and she has not had any significant problems. She did have an echocardiogram in November of this year which showed an ejection fraction about 65% with mild mitral annular calcifications and some mild le ft ventricular hypertrophy. She did have evidence of grade I diastolic dysfunction with mild tricusp id, mitral and pulmonary valve regurgitation and also some mild aortic valve sclerosis. At that time , we last saw her in the office in March she was not complaining of any lightheadedness or shortness of breath or any significant problems at that time. She had no chest discomfort and was doing relat ively well on her medical regimen at that time. At this time, she appears to be less confused on spe aking to her this evening, but still continues to have pain in the lower extremities over the areas o f what appears to be small hematomas. Her hemoglobin is 10.8. This is not severe bleeding. PAST MEDICAL HISTORY: Significant for end-stage renal disease. She is on peritoneal dialysis. She has history of pacemaker insertion. She has a history of left arm fracture. She has had fistula nae lori for her dialysis. She has hypertension, and appears in atrial fibrillation, did not know that sarika blandon has any history of diabetes. SOCIAL HISTORY: She is a . She has children who are alive and well. I think she still lives with her daughter. She never smoked in the past. She has never had any alcohol use. She is relati vely sedentary. ALLERGIES: None. MEDICATIONS PRIOR TO ADMISSION: Included folic acid, ferrous gluconate, magnesium, fish oil, vitamin D3, ICAPS, Coumadin, sevelamer, nifedipine, Epogen, tramadol, vitamin B complex, metoprolol 50 mg ex tended release tablets once a day. REVIEW OF SYSTEMS: Mainly review of systems consist of the lower extremity pain associated with the ecchymosis and small hematomas as well as generalized weakness. She denied any chest pain or signifi cant shortness of breath. REVIEW OF SYSTEMS: Otherwise is relatively unremarkable given her age and multiple medical problems. PHYSICAL EXAMINATION: GENERAL: Reveals an elderly female who is in no acute distress at this time, but does have pain in t he lower extremities, almost impossible even touch and examine the legs due to the pain over the smal l hematoma areas. VITAL SIGNS: Her blood pressure is 130/62, heart rate is 85. She at times appears to be in atrial f ibrillation. Other times, she appears to have sinus rhythm with frequent PACs. She is afebrile, res piratory rate 15. She has 95% O2 saturation. HEENT: Shows head to be normocephalic and atraumatic. Carotid pulses are present. I did not hear a ny significant bruits. CHEST: Clear to auscultation without rales, rhonchi or wheezing. CARDIOVASCULAR: She has an irregular rhythm at this time. She has a well healed surgical incision o román the pacemaker site underneath the left infraclavicular area. She has no significant murmurs. Sh e does have a soft systolic murmur at the apex, but otherwise cardiac evaluation was unremarkable. ABDOMEN: Soft and nontender. Positive bowel sounds are present. She has a peritoneal dialysis cath eter in place. EXTREMITIES: Show no clubbing or cyanosis. She does have multiple areas of what appears to be small hematomas in the subcutaneous tissues and it is very tender to the touch. Pedal pulses are palpable . NEUROLOGIC: She appears to be intact, but did not get out of bed for further evaluation due to her g eneralized weakness. SKIN: Warm and dry. LABORATORY DATA: Shows as noted above, the INR is 2.3. Her BUN is 108 with a creatinine of 7.5. Po tassium is 3.0, previously was 2.7. This was then given some replacement. Her troponin I was 0.47 a nd decreased down to 0.46. EKG is unremarkable otherwise and no evidence of ischemia. No evidence o f DVTs were noted on the venous evaluation. IMPRESSION: 1. Generalized weakness and confusion, most likely associated with the gabapentin. We will obviousl y hold this medication and hopefully her symptoms will improve. 2. Multiple small hematomas and ecchymosis. We may need to discontinue her Coumadin, uncertain etio logy of these small hematomas. She has had no significant bruising. The symptoms focus over the rosa face of the vein; however, they are located over also the posterior and lateral aspects of the lower extremities. We will discuss with Dr. Steinberg what the options are for oral anticoagulation with her jean pierre al disease. 3. History of pacemaker insertion with intermittent atrial fibrillation and she has had a history of sick sinus syndrome with complete AV heart block in the past. This is stable at this time. Her las t pacemaker check showed a normal function. 4. Hyperlipidemia. Last LDL level of 74 and previously she had been on red yeast rice and this was discontinued due to the possible interaction with the Coumadin. 5. Hypertension. This is under good control at this time, would continue the same medications. We would be more than happy to continue to follow the patient with you, but at this time, overall cardia c status appears to be stable, but of uncertain etiology of all the multiple small hematomas of the l ower extremities. 6. History of a fall, most likely this is also related to the medications. We will hold the gabapen tin and hopefully her symptoms will improve.
--- NOTE | 2018-05-31 23:42 | CON ---
DATE OF CONSULTATION: 05/31/2018 HISTORY OF PRESENT ILLNESS: Ms. Lemons is an 83-year-old white female with ESRD, currently on jannet toneal dialysis and was admitted for generalized weakness. According to two daughters, her lower leg extremity gave out. She was also found to have a UTI. Furthermore, she was also noted to be hypoka lemic. We are being consulted for maintenance peritoneal dialysis. REVIEW OF SYSTEMS: Decreased energy level. Decreased motor strength of lower extremities. No chest pain or shortness of breath. No nausea, no vomiting, no productive cough. No fever or chills. No abdominal pain. No dysuria, no urinary frequency. No hematochezia, no melena, no hematemesis. No h eadache, no diplopia, no sore throat. Appetite decreased. Energy level is decreased. HOME MEDICATIONS: Lasix 40 mg once a day, nifedipine 30 mg XL tab once a day, red yeast 600 mg daily , fish oil 1000 mg 2 times a day, ferrous gluconate 324 mg once a day, gabapentin 400 mg daily. PHYSICAL EXAMINATION: VITAL SIGNS: Blood pressure 108/72, heart rate 102, respiratory rate 18, O2 saturation 98%. GENERAL: Noted to be awake, supine, obese, lethargic. SKIN: Adequate turgor. HEENT: Slightly pale conjunctivae, anicteric sclerae. NECK: No neck mass, no carotid bruits, no JVD. CHEST: No deformities. LUNGS: Clear breath sounds. No wheezing, no crackles. HEART: Normal sinus rhythm. No murmur, no gallops, no rubs. ABDOMEN: Globular, soft, nontender, no masses. Positive for bowel sounds. Negative for epigastric bruits. Positive for PD catheter. EXTREMITIES: Positive for edema. NEUROLOGIC: Awake, oriented. No tremors, no asterixis. Oriented to 3 spheres. Decreased motor low er extremity. PAST MEDICAL HISTORY: 1. ESRD and currently on maintenance peritoneal dialysis. 2. History of hypertension. 3. Chronic glomerulonephritis. 4. GERD. 5. Status post cardiac arrhythmia. 6. History of hyperlipidemia. 7. History of proteinuria. PAST SURGICAL HISTORY: 1. Status post PD catheter placement. 2. Status post pacemaker placement. 3. Status post colonoscopy. 4. Status post cholecystectomy. 5. Status post bilateral cataract surgery. 6. Status post CT scan-guided renal biopsy. ALLERGIES: None. TRAUMA: Status post left elbow fracture. IMMUNIZATIONS: Up to date. HOSPITALIZATIONS: Please see past medical history. SOCIAL HISTORY: Patient lives in [place]. She is . She lives with her daughter. She has a to epifanio of 6 children. 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 Originally from [place]. No history of smokin g, no alcohol intake, no IV drug abuse. Status post blood transfusion. FAMILY HISTORY: No family history of ESRD. LABORATORY DATA: On 05/31/2018, white count 11.5, hemoglobin 10.8. Sodium 136, potassium 3, chlorid e 93, carbon dioxide 21, BUN is 108, creatinine 7.5, glucose 93, calcium 8.8, troponin I 0.464, album in 2.6. IMAGING: CT scan of the brain on 05/31/2018, shows chronic changes, no acute intracranial abnormalit y. ASSESSMENT AND PLAN: 1. Generalized weakness/decreased lower extremity - nonspecific etiology. This could be related fro m mild hypokalemia which is currently being corrected. CT scan did not show any acute intracranial a bnormality. If persistent with the lower leg extremities, consider neurological consult. 2. End-stage renal disease, stable. We will continue current continuous cycling peritoneal dialysis regimen. Review of the last Kt/V suggests she is adequately dialyzed with the current dialysis cuba men. 3. Borderline anemia. Start Epogen 7500 units subcu every week. 4. Hypokalemia, p.r.n. potassium replacement.
[2018-06-01 06:03] LABS: #Basophils 0.1 thou/uL (0.0-0.2); #Eosinphils 0.2 thou/uL (0.0-0.7); #Lymphocytes 1.1 thou/uL (1.20-3.40); #Monocytes 0.8 thou/uL (0.11-0.59); #Neutrophils 6.4 thou/uL (1.40-6.50); %Basophils 0.8 % (0.0-1.0); %Eosinophils 2.1 % (0.0-10.0); %Lymphocytes 13.2 % (21.0-51.0); %Monocytes 9.7 % (0.0-10.0); %Neutrophils 74.1 % (42.0-75.0); Hemoglobin 9.9 g/dL (12.0-16.0); Mean Corpuscular HGB CONC 31.4 g/dL (32.0-36.0); Mean Corpuscular Volume 95.3 fL (78.0-98.0); Mean Platelet Volume 6.3 fL (7.4-10.4); Platelet Count 410 thou/uL (130-400); RBC Distribution Width 15.6 % (11.5-14.5); Red Blood Cell (RBC) Count 3.31 mill/uL (4.20-5.40); White Blood Cell (WBC) Count 8.6 thou/uL (4.8-10.8)
[2018-06-01 06:26] LABS: Anion Gap 18 mmol/L (10-20); BUN (Urea Nitrogen) 97 mg/dL (9.8-20.1); Calc. Creatinine Clearance 7 mL/min (70-130); Calcium 8.4 mg/dL (7.8-10.44); Carbon Dioxide 22 mmol/L (23-31); Chloride 96 mmol/L (98-107); Estimated GFR-MDRD 6; Glucose 116 mg/dL (83-110); Sodium 133 mmol/L (136-145)
[2018-06-01 06:28] LABS: Potassium 2.8 mmol/L (3.5-5.1)
[2018-06-01] MEDS ORDERED: Potassium Chloride 20 MEQ TAB PO SCH (07:00)
[2018-06-01] MEDS: Sodium Chloride 0.9% 1,000 ML IV SCH ×2 (07:32→21:06)
[2018-06-01] MEDS ORDERED: Epoetin (ESRD) 20,000 UNITS/ML SC SCH (08:15)
--- NOTE | 2018-06-01 08:16 | PRG ---
DATE OF SERVICE: 06/01/2018 SERVICE: Renal Medicine. SUBJECTIVE: Ms. Lemons is an 83-year-old white female who was admitted for UTI/generalized weaknes s. She was also seen by Cardiology and was noted to be having generalized confusion. Gabapentin has been recommended to be discontinued. There is also a consideration to stop Coumadin if needed. If Coumadin is stopped, we could consider Eliquis 2.5 mg tab b.i.d. She underwent last night with peritoneal dialysis without any difficulty. Patient denies any chest pain or shortness of breath. PHYSICAL EXAMINATION: VITAL SIGNS: Blood pressure is 111/69, heart rate 90, respiratory rate 20, temperature 97.4, pulse o x is 96%. GENERAL: Noted to be awake, supine, comfortable, not in overt distress. SKIN: Adequate turgor. HEENT: She has pinkish conjunctivae, anicteric sclerae. NECK: No neck mass, no carotid bruits, no JVD. CHEST: No deformities. LUNGS: Clear breath sounds. HEART: Normal sinus rhythm. No murmur, no gallops, no rubs. ABDOMEN: Globular, soft, nontender, no masses. Positive for PD catheter. EXTREMITIES: Positive for edema. MEDICATIONS: Of 06/01/2018 was reviewed. LABORATORY DATA: Of 06/01/2018, white count is 8.6, hemoglobin 9.9. Sodium 133, potassium 2.8, chlo ride 96, carbon dioxide 22, BUN 97, creatinine 7.05, glucose 106, calcium 8.4. Troponin I 0.464. ASSESSMENT AND PLAN: 1. Mild hypokalemia - currently on potassium supplementation. She is on K-Dur. She will be given p .r.n. K-Dur. 2. End-stage renal disease, stable. We will continue current CCPD regimen, tolerating said peritone al dialysis. No changes to be made. 3. Anemia. Start Epogen 7500 units subcu every week. 4. Generalized weakness, consider holding off the patient's gabapentin. Overall, agree with current management.
[2018-06-01] MEDS: Folic Acid 1 MG TAB PO SCH (09:29)
[2018-06-01] MEDS: Magnesium Oxide 400 MG TAB PO SCH (09:29)
[2018-06-01] MEDS: Ferrous Gluconate 324 MG TAB PO SCH (09:29)
[2018-06-01] MEDS: traMADol HCl 50 MG TAB PO PRN (11:20)
--- NOTE | 2018-06-01 11:24 | PQF ---
SAUNDRA OLIVARES DAVID R MD [id number] [facility]266 [id number] CLINICAL DOCUMENTATION IMPROVEMENT CLARIFICATION FORM: ICD-10 Updated PLEASE DO AN ADDENDUM TO THE PROGRESS NOTE WITH ANY DOCUMENTATION UPDATES OR ADDITIONS AND CARRY THROUGH TO DC SUMMARY. THANK YOU. DATE: 06-01-18 ATTN: DR. CARR Please exercise your independent, professional judgment in responding to the clarification form. Clinical indicators are provided on the bottom of this form for your review Please check appropriate box(s): [ ] NSTEMI [ ] AMI Type II [ x ] Demand Ischemia [ ] Other diagnosis [ ] Unable to determine CLINICAL INDICATORS - SIGNS / SYMPTOMS / LABS ED: NSTEMI; SEPSIS; UTI TROPONIN I 05-31 @ 1033 0.482 05-31@ 1309 0.475 05-31 @1551 0.464 RISKS: ED: NSTEMI; SEPSIS; UTI 05-31 H&P (BRUNO): ESRD; HTN; A-FIB TREATMENTS: CPOE: CARDIO CONSULT ED: IVF 1L BOLUS MAR: 05-31 ROCEPHIN IV IVF THANK YOU, CALI (This form is maintained as a part of the permanent medical record) 2014 [employer]. All Rights Reserved Cali Luke RN, BSN, CCDS [email or web address] [phone] MTDD
--- NOTE | 2018-06-01 11:30 | PQF ---
SAUNDRA OLIVARES DAVID R MD [id number] [facility]-266 [id number] CLINICAL DOCUMENTATION IMPROVEMENT CLARIFICATION FORM: ICD-10 Updated PLEASE DO AN ADDENDUM TO THE PROGRESS NOTE WITH ANY DOCUMENTATION UPDATES OR ADDITIONS AND CARRY THROUGH TO DC SUMMARY. THANK YOU. DATE: 06-01-18 ATTN: DR. CARR Please exercise your independent, professional judgment in responding to the clarification form. Clinical indicators are provided on the bottom of this form for your review Please check appropriate box(s) to clarify if the following diagnosis has been ruled in or ruled out: SEPSIS [ ] Ruled in diagnosis [ ] Continue to treat [ ] Resolved [ x] Ruled out diagnosis [ ] Cannot rule out diagnosis [ ] Other diagnosis [ ] Unable to determine In addition, please specify: Present on Admission (POA): [ ] Yes [ ] No [ ] Unable to determine For continuity of documentation, please document condition throughout progress notes and discharge summary. Thank You. CLINICAL INDICATORS - SIGNS / SYMPTOMS / LABS ED: NSTEMI; SEPSIS; UTI BP 108/72; 98/60; 86/60 P 80-102 CONFUSION; SPEECH CHANGES LABS: 05-31 WBC 12.9; TROPONIN I - @ 1033 0.482 - @ 1309 0.475 - @1551 0.464 H&P: INCREASED CONFUSION; LETHARGY; HR GOT TO 102 UTI RISK FACTORS ED: NSTEMI; SEPSIS; UTI H&P: UTI TREATMENTS ED: ROCEPHIN IV 05-31 IVF BOLUS 1L MAR: ROCEPHIN IV 06-01 - PENDING IVF - NS 75ML/HR THANK YOU CALI (This form is maintained as a part of the permanent medical record) 2014 [employer]. All Rights Reserved Cali Luke RN, BSN, CCDS [email or web address] [phone] [facility]
[2018-06-01] MEDS: cefTRIAXone\\ROCEPHIN 1 GM in Sodium Chloride 0.9% 100 ML IVPB SCH (12:59)
--- NOTE | 2018-06-01 15:19 | PDOC.CTH ---
<Erlinda Quintanilla - Last Filed: 06/01/18 15:15> Cardiology Progress Note - Subjective The pt seen and examined. No overnight events. No cardiac complaints. She is drowsy this afternoon. - Objective Vital Signs Temp Pulse Pulse Resp BP BP Pulse Ox 06/01/18 11:52 97 124/59 L 06/01/18 09:12 98.0 F 93 19 124/69 98 06/01/18 04:00 97.4 F L 90 20 111/69 96 Weight 155 lb 05/31/18 06/01/18 06/02/18 06:59 06:59 06:59 Intake Total 1034 Output Total 0 Balance 1034 - Physical Examination General/Neuro: other: (alerted to self ) Lungs: CTA (diminished at bases) Heart: RRR Abdomen: soft Extremities: other: (No edema) - Telemetry Telemetry Rhythm: SR - Labs Result Diagrams: 06/01/18 05:22 06/01/18 05:22 Troponin/CKMB CK-MB (CK-2) 2.2 ng/mL (0-6.6) 05/31/18 10:33 Troponin I 0.464 ng/mL (< 0.028) H* 05/31/18 15:51 - Assessment/Plan 1. Afib - remains in SR; Stop Coumadin and start Xarelto 15mg qd (renal dose; confirmed by Dr Steinberg); 2. Multiple hematomas and ecchymosis - stop Coumadin and start Xarelto 15mg qd; 3. ESRD with PD daily - managed by Dr Steinberg 4. UTI - on IV antibiotics; managed by PCP 5. AMS - slightly improving per family report 6. Anemia - decreased today; On Epogen qwk. cont. to monior 7. Hx of fall - 8. Hypokalemia - Covered KCl supplement by Dr Steinberg today. MAR reviewed Review of Systems - Review of Systems Constitutional: reports: see HPI EENTM: reports: see HPI Respiratory: reports: see HPI Cardiac (ROS): reports: see HPI ABD/GI: reports: see HPI : reports: see HPI Musculoskeletal: reports: see HPI Skin: reports: see HPI <Sharonda Nascimento - Last Filed: 06/02/18 11:01> Cardiology Progress Note - Objective Vital Signs Temp Pulse Resp BP Pulse Ox 06/02/18 07:46 96.9 F L 79 18 112/66 100 06/02/18 06:00 99 06/02/18 04:00 97.4 F L 104 H 18 144/84 H 93 L Weight 169 lb 06/01/18 06/02/18 06/03/18 06:59 06:59 06:59 Intake Total 1034 2350 Output Total 0 842 Balance 1034 1508 - Labs Result Diagrams: 06/02/18 04:24 06/02/18 04:24 Troponin/CKMB CK-MB (CK-2) 2.2 ng/mL (0-6.6) 05/31/18 10:33 Troponin I 0.216 ng/mL (< 0.028) H 06/02/18 08:35 - Assessment/Plan pt. seen and eval. by me. I agree with the A/P by the TECHNICIAN TRAINEE. Hopefully can be d/c' d in next 1-2 days.Will need PT or rehab.
--- NOTE | 2018-06-01 20:40 | PRG ---
DATE OF SERVICE: 06/01/2018 SUBJECTIVE: The patient herself denies having any significant problems other than her legs being ten natalio. Her daughters believe she may be slightly better today, but still having some confusion. OBJECTIVE: VITAL SIGNS: Temperature is 97.6, pulse 90-101, respirations 14, O2 sat 96% on room air, BP 132/80. GENERAL APPEARANCE: Age appropriate female, in no distress. Awake, alert. HEART: Irregular with no murmurs. LUNGS: Clear bilaterally with no wheezes or rales. ABDOMEN: Soft, nontender, nondistended. EXTREMITIES: Persistent tenderness to palpation, generally diffusely, but certainly exquisite pain l ocated around the right medial thigh hematoma and the left posterior calf hematoma. LABORATORY DATA: White blood cell count 8.6, hemoglobin 9.9, platelets 410. Sodium 133, potassium 2 .8, chloride 96, CO2 22, BUN 97, creatinine 7.05. Blood and urine cultures negative thus far. ASSESSMENT: 1. Metabolic encephalopathy, suspected that this may be related to urinary tract infection, although other possibilities include uremia and use of gabapentin or some combination thereof. They are all being addressed individually. 2. Urinary tract infection, so far have negative culture. The patient has fairly poor urine output given that she is on dialysis, but certainly initial urinalysis was concerning for infection and cult ure is negative thus far. Continue with Rocephin. 3. Possible side effect of gabapentin with altered mental status that has been discontinued. 4. End-stage renal disease, on dialysis. Continue per Dr. Steinberg's recommendations. 5. Atrial fibrillation, chronic and stable. The patient was on Coumadin. She is now being switched to Xarelto. Cardiology following. 6. Elevated troponin, suspect she simply has some mild demand ischemia related to her atrial fibrill ation in the setting of her severe renal disease, difficult to even interpret. Troponins are slightl y elevated. No further evaluation indicated. 7. Hematomas of the lower extremities suspect these were spontaneous or secondary to minor trauma in a patient who is on warfarin, that has now been discontinued. She is on an air mattress and there i s no further specific treatments indicated for these. 8. Possible peripheral neuropathy discussed at length the difficulties in treating that and the dany ent with this situation will need to clear her acute problems first and then consider potential other medications that she may tolerate better such as Lyrica or small dose of Elavil at bedtime. 9. Chronic anemia secondary to renal disease. 10. Hypokalemia, continue repletion. 11. Hypotension. The patient initially had some hypotension suspect this was not related to sepsis, but simply some general dehydration secondary to her encephalopathy and dialysis. She did respond t o 3500 mL boluses of normal saline and has been stable since.
[2018-06-01] MEDS: Bisacodyl 5 MG TAB PO PRN (22:13)
[2018-06-01] MEDS: Acetaminophen 325 MG TAB PO PRN (22:49)
[2018-06-02 04:52] LABS: #Eosinphils 0.1 thou/uL (0.0-0.7); #Lymphocytes 0.9 thou/uL (1.20-3.40); #Monocytes 0.7 thou/uL (0.11-0.59); #Neutrophils 5.9 thou/uL (1.40-6.50); %Basophils 0.2 % (0.0-1.0); %Eosinophils 1.9 % (0.0-10.0); %Lymphocytes 11.4 % (21.0-51.0); %Monocytes 9.4 % (0.0-10.0); Hemoglobin 10.5 g/dL (12.0-16.0); Mean Corpuscular HGB CONC 30.2 g/dL (32.0-36.0); Mean Corpuscular Hemoglobin 29.5 pg (27.0-31.0); Mean Corpuscular Volume 97.5 fL (78.0-98.0); Mean Platelet Volume 5.8 fL (7.4-10.4); Platelet Count 405 thou/uL (130-400); RBC Distribution Width 15.9 % (11.5-14.5); Red Blood Cell (RBC) Count 3.57 mill/uL (4.20-5.40); White Blood Cell (WBC) Count 7.7 thou/uL (4.8-10.8)
[2018-06-02 05:03] LABS: Anion Gap 18 mmol/L (10-20); BUN (Urea Nitrogen) 80 mg/dL (9.8-20.1); Calc. Creatinine Clearance 8 mL/min (70-130); Calcium 8.4 mg/dL (7.8-10.44); Carbon Dioxide 21 mmol/L (23-31); Chloride 97 mmol/L (98-107); Estimated GFR-MDRD 6; Glucose 120 mg/dL (83-110); Potassium 3.4 mmol/L (3.5-5.1); Sodium 133 mmol/L (136-145)
[2018-06-02] MEDS: traMADol HCl 50 MG TAB PO PRN (06:06)
[2018-06-02 09:08] LABS: Troponin I 0.216 ng/mL (< 0.028)
[2018-06-02] MEDS: Ferrous Gluconate 324 MG TAB PO SCH (09:47)
[2018-06-02] MEDS: Potassium Chloride 20 MEQ TAB PO SCH (09:47)
[2018-06-02] MEDS: Rivaroxaban 15 MG TAB PO SCH (09:47)
[2018-06-02] MEDS: Folic Acid 1 MG TAB PO SCH (09:47)
[2018-06-02] MEDS: Magnesium Oxide 400 MG TAB PO SCH (09:47)
[2018-06-02] MEDS: Sodium Chloride 0.9% 1,000 ML IV SCH (09:48)
--- NOTE | 2018-06-02 10:35 | PRG ---
DATE OF SERVICE: 06/02/2018 SUBJECTIVE: Ms. Lemons is an 83-year-old white female with ESRD and currently on maintenance perit fink dialysis. Recently Cardiology has evaluated this patient and recommendation to stop Coumadin, replace which Xarelto. Xarelto has been adjusted for renal dosing. The patient denies any current chest pain. However, she did have a transient chest pain earlier today. It is now relieved. No complaints of shortness of breath. She did well with the peritoneal dialysis last night. PHYSICAL EXAMINATION: VITAL SIGNS: Blood pressure 130/66, heart rate 79, respiratory rate 18, temperature 96.9, pulse ox 1 00% room air. GENERAL: Awake, alert, comfortable, not in distress. SKIN: Adequate turgor. HEENT: She has slightly pale conjunctivae, anicteric sclerae. NECK: No neck mass, no carotid bruits, no JVD. CHEST: No deformities. LUNGS: Clear breath sounds. No wheezing, no crackles. HEART: Irregularly irregular. Grade 2/6 systolic murmur, no gallops or rubs. ABDOMEN: Globular, soft, nontender. Positive for PD catheter. EXTREMITIES: Trace edema. MEDICATIONS: 06/02/2018 - Reviewed. LABORATORY: 06/02/2018 - Sodium 133, potassium 3.4, chloride 97, carbon dioxide 21, BUN 80, creatini ne 6.36, glucose 120, calcium 8.4, white count 7.7, hemoglobin 10.5. ASSESSMENT AND PLAN: 1. Chronic atrial fibrillation - Coumadin changed to Xarelto. 2. End-stage renal disease, stable. Tolerating current continuous cycling peritoneal dialysis regim en. No changes will be made with the current peritoneal dialysis regimen. 3. Mild hypokalemia, much improved. On potassium replacement 40 mEq once a day. 4. Chronic anemia - on weekly Epogen. Recheck base met and CBC in a.m.
--- NOTE | 2018-06-02 11:32 | PRG ---
DATE OF SERVICE: 06/02/2018 SUBJECTIVE: The patient was reporting some chest pain to the nurse this morning. On my exam the pat carlos denies having any chest pain, but does not recall having the chest pain either. OBJECTIVE: VITAL SIGNS: T-max 97.6, pulse 79, respirations 18, O2 sat 100% on room air, BP 112/66. GENERAL: Age appropriate female in no distress. She is awake and pleasant and alert and conversant, but still appears to be a bit confused. HEART: Irregularly irregular without a murmur. LUNGS: Diminished at the bases, but otherwise clear. ABDOMEN: Soft, nontender, nondistended. EXTREMITIES: Still very tender to palpation with the persistent hematomas as previously described. She also does have some tenderness to palpation in the left lower sternal border area, costochondral area. LABORATORY DATA: White count 7.7, hemoglobin 10.5, platelets 405. Sodium 133, potassium 3.4, chlori de 97, CO2 is 21, BUN 80, creatinine is 6.36. Troponin 0.216. Urine culture is negative. Blood cul tures are negative. EKG shows atrial fibrillation with rate of 112. Monitor reveals underlying atrial fibrillation conve rting to in and out of sinus rhythm with pacing on demand. IMPRESSION AND PLAN: 1. Metabolic encephalopathy. The patient does not appear to be substantially improved. She has had some time for the gabapentin to wash out and she is getting appropriate hemodialysis and her urine c ulture thus far remains negative. This could be simply an exacerbation of some underlying dementia. The patient has some generalized weakness as well. Continue with antibiotics and dialysis. May nee d to consider some rehab. 2. Urinary tract infection, negative cultures. Continue Rocephin at least 1 more day. 3. Possible adverse effects of gabapentin causing some encephalopathy. That has been held. Should have been washed out by now and does not seem to have made a huge difference. 4. End-stage renal disease on dialysis. Continue dialysis per Dr. Steinberg's recommendations. 5. Atrial fibrillation, chronic, intermittent and has a pacemaker. The patient has been changed fro m Coumadin to Xarelto and followed by Cardiology. 6. Chest pain. The patient presented with some elevation in her troponins; however, with her end-st age renal disease, hard to interpret those. She is having some chest pain. We will go ahead and run another series of enzymes to see if they go back up again. Cardiology is following. An EKG did not reveal any ischemic changes. The pain appears to be fully resolved. 7. Lower extremity hematomas, suspect spontaneous as above. Changing from Coumadin to Xarelto. 8. Possible peripheral neuropathy will need to be addressed once the patient is more stable. 9. Chronic anemia of renal disease. 10. Hypokalemia, much improved. 10. Hypotension, resolved.
[2018-06-02 12:16] VITALS: BMI 36.6
--- NOTE | 2018-06-02 13:07 | PDOC.CTH ---
<Erlinda Quintanilla - Last Filed: 06/02/18 13:08> Cardiology Progress Note - Subjective The pt seen and examined. No overnight events. Per family, she was complained CP this AM. At this moment, she is sleeping well at this time. - Objective Vital Signs Temp Pulse Resp BP Pulse Ox 06/02/18 11:20 96.9 F L 77 19 114/77 99 06/02/18 07:46 96.9 F L 79 18 112/66 100 06/02/18 06:00 99 06/02/18 04:00 97.4 F L 104 H 18 144/84 H 93 L Admit Weight 155 lb Weight 169 lb 06/01/18 06/02/18 06/03/18 06:59 06:59 06:59 Intake Total 1034 2350 Output Total 0 842 Balance 1034 1508 - Physical Examination Lungs: CTA Heart: RRR Abdomen: soft Extremities: other: (No edema) - Labs Result Diagrams: 06/02/18 04:24 06/02/18 04:24 Troponin/CKMB CK-MB (CK-2) 2.2 ng/mL (0-6.6) 05/31/18 10:33 Troponin I 0.216 ng/mL (< 0.028) H 06/02/18 08:35 - Assessment/Plan 1. Afib - remains in SR and Afib; On Xarelto 15mg qd (renal dose; confirmed by Dr Steinberg); cont. to monitor on tele 2. Multiple hematomas and ecchymosis - stable; on Xarelto 15mg qd; 3. ESRD with PD daily - managed by Dr Steinberg 4. UTI - on IV antibiotics; managed by PCP 5. AMS - no changed 6. Anemia - decreased today; On Epogen qwk. cont. to monior 7. Hx of fall - 8. Hypokalemia - 9. CP - 12-ECG today showed on changed. Trop is down today. MAR reviewed <Sharonda Nascimento - Last Filed: 06/02/18 18:33> Cardiology Progress Note - Objective Vital Signs Temp Pulse Pulse Resp BP BP Pulse Ox 06/02/18 15:50 98.1 F 81 16 127/84 99 06/02/18 11:27 73 114/77 06/02/18 11:20 96.9 F L 77 19 114/77 99 10/17/18 07:46 96.9 F L 79 18 112/66 100 Pulse Ox 06/02/18 15:50 06/02/18 11:27 99 06/02/18 11:20 06/02/18 07:46 Admit Weight 155 lb Weight 169 lb 06/01/18 06/02/18 06/03/18 06:59 06:59 06:59 Intake Total 1034 2350 1380 Output Total 0 842 Balance 1034 1508 1380 - Labs Result Diagrams: 06/02/18 04:24 06/02/18 04:24 Troponin/CKMB CK-MB (CK-2) 2.2 ng/mL (0-6.6) 05/31/18 10:33 Troponin I 0.185 ng/mL (< 0.028) H 06/02/18 14:34 - Assessment/Plan pt. seen and eval. by me. I agree with the A/P by the VULCANIZING PRESS OPERATOR. She is fatigueds today after PT. She complains of chest discomfort most of the time . this is relieved with pain medications.There are no obvious EKG changes . The troponin I is indeterminate. She is still very weak and confused. At this time she is not a very good candidate for a stress test or a cardiac cath. Continue medical treatment for now.
[2018-06-02] MEDS: cefTRIAXone\\ROCEPHIN 1 GM in Sodium Chloride 0.9% 100 ML IVPB SCH (13:29)
--- NOTE | 2018-06-02 14:10 | EKG ---
Test Reason : Blood Pressure : / mmHG Vent. Rate : 112 BPM Atrial Rate : 105 BPM P-R Int : 000 ms QRS Dur : 124 ms QT Int : 368 ms P-R-T Axes : 000 000 -09 degrees QTc Int : 502 ms Atrial fibrillation with rapid ventricular response with occasional ventricular-paced complexes RSR' or QR pattern in V1 suggests right ventricular conduction delay Abnormal ECG Confirmed by JOSE LIZARRAGA DO ([id number]), graphics editor MARY MASON ([id number]) on 06/02/2018 2:10:31 PM Referred By: Confirmed By:JOSE LIZARRAGA DO
[2018-06-02 15:08] LABS: Troponin I 0.185 ng/mL (< 0.028)
[2018-06-02] MEDS: Acetaminophen 325 MG TAB PO PRN (16:53)
[2018-06-02] MEDS ORDERED: Fentanyl 100 MCG/2 ML VIAL SLOW IVP SCH (17:30)
[2018-06-02 20:32] LABS: Troponin I 0.171 ng/mL (< 0.028)
[2018-06-02] MEDS: Bisacodyl 5 MG TAB PO PRN (20:40)
[2018-06-03] MEDS: Sodium Chloride 0.9% 1,000 ML IV SCH ×2 (00:54→13:55)
[2018-06-03] MEDS: traMADol HCl 50 MG TAB PO PRN ×2 (00:57→17:29)
[2018-06-03 04:54] LABS: #Eosinphils 0.1 thou/uL (0.0-0.7); #Lymphocytes 0.8 thou/uL (1.20-3.40); #Monocytes 0.8 thou/uL (0.11-0.59); #Neutrophils 6.8 thou/uL (1.40-6.50); %Basophils 0.4 % (0.0-1.0); %Eosinophils 1.1 % (0.0-10.0); %Lymphocytes 9.8 % (21.0-51.0); %Neutrophils 79.7 % (42.0-75.0); Hemoglobin 10.1 g/dL (12.0-16.0); Mean Corpuscular HGB CONC 31.5 g/dL (32.0-36.0); Mean Corpuscular Hemoglobin 30.1 pg (27.0-31.0); Mean Corpuscular Volume 95.5 fL (78.0-98.0); Mean Platelet Volume 6.1 fL (7.4-10.4); Platelet Count 426 thou/uL (130-400); RBC Distribution Width 15.7 % (11.5-14.5); Red Blood Cell (RBC) Count 3.37 mill/uL (4.20-5.40); White Blood Cell (WBC) Count 8.6 thou/uL (4.8-10.8)
[2018-06-03 05:09] LABS: Anion Gap 16 mmol/L (10-20); BUN (Urea Nitrogen) 66 mg/dL (9.8-20.1); Calc. Creatinine Clearance 8 mL/min (70-130); Calcium 8.5 mg/dL (7.8-10.44); Carbon Dioxide 20 mmol/L (23-31); Chloride 98 mmol/L (98-107); Estimated GFR-MDRD 7; Glucose 127 mg/dL (83-110); Potassium 3.9 mmol/L (3.5-5.1); Sodium 130 mmol/L (136-145)
--- NOTE | 2018-06-03 08:15 | EKG ---
Test Reason : Blood Pressure : / mmHG Vent. Rate : 083 BPM Atrial Rate : 072 BPM P-R Int : 000 ms QRS Dur : 110 ms QT Int : 408 ms P-R-T Axes : 000 -24 006 degrees QTc Int : 479 ms Sinus rhythm with marked sinus arrhythmia with frequent ventricular-paced complexes Premature atrial complexes Biventricular pacemaker detected Incomplete right bundle branch block Abnormal ECG When compared with ECG of 31-MAY-2018 10:20, (Unconfirmed) Vent. rate has decreased BY 29 BPM Confirmed by SHAWN CARBONE ([id number]) on 06/03/2018 8:15:08 AM Referred By: BRUNO Confirmed By:SHAWN CARBONE
[2018-06-03] MEDS: Potassium Chloride 20 MEQ TAB PO SCH (08:27)
[2018-06-03] MEDS: Ferrous Gluconate 324 MG TAB PO SCH (08:27)
[2018-06-03] MEDS: Magnesium Oxide 400 MG TAB PO SCH (08:27)
[2018-06-03] MEDS: Folic Acid 1 MG TAB PO SCH (08:27)
[2018-06-03] MEDS: Rivaroxaban 15 MG TAB PO SCH (08:28)
--- NOTE | 2018-06-03 09:59 | PRG ---
DATE OF SERVICE: 06/03/2018 SERVICE: Renal Medicine. SUBJECTIVE: Ms. Lemons is an 83-year-old white female being followed by the Renal Service for her end-stage renal disease - maintenance peritoneal dialysis. She had some insomnia last night. She un derwent peritoneal dialysis without any difficulty last night. No complaints of shortness of breath. She still has occasional chest pain, which is spontaneously relieved. OBJECTIVE: VITAL SIGNS: Blood pressure is 96/53, heart rate 75, respiratory rate 18, temperature 96.8, pulse ox 98%. GENERAL: Awake, alert, comfortable, not in distress. SKIN: Adequate turgor. HEENT: Pinkish conjunctivae, anicteric sclerae. NECK: No neck mass, no carotid bruits, no JVD. CHEST: No deformities. LUNGS: Clear breath sounds, no wheezing, no crackles. HEART: Normal sinus rhythm. No murmur, no gallops or rubs. ABDOMEN: Globular, soft, nontender. Positive for PD catheter. EXTREMITIES: Positive for edema. MEDICATIONS: Of 06/03/2018 was reviewed. LABORATORY DATA: Of 06/03/2018, white count 8.6, hemoglobin 10.1. Sodium 130, potassium 3.9, chlori de 98, carbon dioxide 20, BUN 60, creatinine 6.01, glucose 127, calcium 8.5. Troponin I 0.171. ASSESSMENT AND PLAN: 1. End-stage renal disease, stable. Continue current continuous cycling peritoneal dialysis regimen . No changes to be made. Tolerating ultrafiltration. 2. Mild hypokalemia - potassium is normalized. She is on potassium supplementation. 3. Hypoalbuminemia. Continue Nepro supplementation. 4. Chest pain/atrial fibrillation - Cardiology is following. Patient is now on Xarelto. She has al so been off Coumadin. We will recheck again a base met in a.m.
--- NOTE | 2018-06-03 12:11 | PRG ---
DATE OF SERVICE: 06/03/2018 SUBJECTIVE: The patient is feeling okay this morning. She has no new complaints. Her daughter tani tariq she has figured out why she is having pain in the left lower sternal area and chest. She states that physical therapy got her mother up 3 times yesterday to standing and when they used the lift be lt, the buckle tends to hit her right in that particular area causing some tenderness. She had a cou ple episodes of pain there overnight as well. It seems to be improved presently. PHYSICAL EXAMINATION: VITAL SIGNS: Temperature 96.8, pulse 75, respirations 18, O2 saturation 98% on room air, BP 96/53. GENERAL APPEARANCE: The patient is awake. She is pleasant and cooperative and interactive, still se ems slightly confused in general. CARDIOVASCULAR: Presently sounds regular, without murmurs. LUNGS: Clear, slightly diminished at the bases. ABDOMEN: Soft, nontender. EXTREMITIES: Still fairly tender to palpation with even light touch. LABORATORY DATA: White blood cell count 8.6, hemoglobin 10.1, platelets 426. Sodium 130, potassium 3.9, CO2 is 20, BUN 66, creatinine 6.01, glucose 127. Troponin is down to 0.171. Blood cultures hav e remained negative. ASSESSMENT AND PLAN: 1. Metabolic encephalopathy, according to the patient's daughter, she is less confused than she was at her presentation and she believes she is better. She does appear to have some underlying dementia and short term memory issues which the patient's daughter understands this is a separate issue from her initial encephalopathy and confusion. Overall, that does seem to have made good progress. 2. Urinary tract infection. Cultures are negative. We will change from Rocephin to an oral regimen . 3. End-stage renal disease, continuing CCPD per Dr. Steinberg. 4. Atrial fibrillation, chronic, intermittent. The patient has a pacemaker. She seems to have gene rally good rate control, although occasionally she does have some mild tachycardia. She is off Couma din now and on Xarelto. Cardiology following. 5. Chest pain. Appears to be noncardiac in nature and more musculoskeletal. 6. Lower extremity hematoma is likely spontaneous. She is now off the Coumadin and changed over to Xarelto. 7. Possible peripheral neuropathy. The patient did not tolerate the gabapentin well. When she is m ore stabilized, may be able to consider other options such as low dose of Lyrica or Elavil. 8. Anemia of chronic disease, stable. 9. Hypokalemia, improved. 10. Hypotension, resolved. DISPOSITION: 1. The patient is looking at rehab options, need to find one that can manage the dialysis situation. 2. The patient's daughter has brought her a protein supplement that she is able to tolerate well. S he is at liberty to use that just as they do at home.
[2018-06-03] MEDS: cefTRIAXone\\ROCEPHIN 1 GM in Sodium Chloride 0.9% 100 ML IVPB SCH (12:27)
--- NOTE | 2018-06-03 13:28 | PDOC.CTH ---
<Erlinda Quintanilla - Last Filed: 06/03/18 13:26> Cardiology Progress Note - Subjective The pt seen and examined. No overnight events. No cardiac complaints. - Objective Vital Signs Temp Pulse Resp BP Pulse Ox 06/03/18 12:09 97.8 F 107 H 20 120/62 98 06/03/18 08:09 96.8 F L 75 18 96/53 L 98 06/03/18 03:18 97.8 F 110 H 19 117/70 98 Admit Weight 155 lb Weight 171 lb 06/02/18 06/03/18 06/04/18 06:59 06:59 06:59 Intake Total 2350 2330 Output Total 842 0 Balance 1508 2330 - Physical Examination General/Neuro: other: (mild confusion) Lungs: CTA Heart: other: (iregular) Abdomen: soft Extremities: other: (No edmea) - Telemetry Telemetry Rhythm: AFlutter - Labs Result Diagrams: 06/03/18 04:41 06/03/18 04:41 Troponin/CKMB CK-MB (CK-2) 2.2 ng/mL (0-6.6) 05/31/18 10:33 Troponin I 0.171 ng/mL (< 0.028) H 06/02/18 20:06 - Assessment/Plan 1. New onset Aflutter - since 06/02/18 @ 2320; On Xarelto 15mg qd; EP consult 2. Afib - remains in SR and Afib; On Xarelto 15mg qd (renal dose; confirmed by Dr Steinberg); cont. to monitor on tele 3. Multiple hematomas and ecchymosis - stable; on Xarelto 15mg qd; 4. ESRD with PD daily - managed by Dr Steinberg 5. UTI - on IV antibiotics; managed by PCP 6. AMS - no changed 7. Anemia - decreased today; On Epogen qwk. cont. to monior 8. Hx of fall - 9. Hypokalemia - stable 10. Hyponatremia - MAR reviewed Review of Systems - Review of Systems Constitutional: reports: no symptoms reported EENTM: reports: no symptoms reported Respiratory: reports: no symptoms reported Cardiac (ROS): reports: no symptoms reported ABD/GI: reports: no symptoms reported : reports: no symptoms reported Musculoskeletal: reports: no symptoms reported <Sharonda Nascimento - Last Filed: 06/03/18 18:41> Cardiology Progress Note - Objective Vital Signs Temp Pulse Resp BP Pulse Ox 06/03/18 16:04 97.7 F 97 20 120/64 97 06/03/18 12:09 97.8 F 107 H 20 120/62 98 06/03/18 08:09 96.8 F L 75 18 96/53 L 98 Admit Weight 155 lb Weight 171 lb 06/02/18 06/03/18 06/04/18 06:59 06:59 06:59 Intake Total 2350 2330 1545 Output Total 842 0 0 Balance 1508 2330 1545 - Labs Result Diagrams: 06/03/18 04:41 06/03/18 04:41 Troponin/CKMB CK-MB (CK-2) 2.2 ng/mL (0-6.6) 05/31/18 10:33 Troponin I 0.171 ng/mL (< 0.028) H 06/02/18 20:06 - Assessment/Plan Pt. seen and eval. by me. I agree with the A/P by the MARINE OPERATIONS COORDINATOR. She was seen by EP today for the new onset atrial flutter. She has had afib also. They have advised medical treatment per the family. I will await the dictated report. She seems to be tolerating the rhythm without any new symptoms. No side effects from the Xarelto thus far. She is still confused and overall has deconditioning. Chest clear. irregular rhythm.
[2018-06-03 18:47] LABS: Hemoglobin 10.5 g/dL (12.0-16.0); Platelet Count 464 thou/uL (130-400)
[2018-06-03] MEDS: Bisacodyl 5 MG TAB PO PRN (20:40)
[2018-06-04] MEDS: Sodium Chloride 0.9% 1,000 ML IV SCH (02:40)
--- NOTE | 2018-06-04 08:12 | CON ---
DATE OF CONSULTATION: 06/03/2018 ELECTROPHYSIOLOGY CONSULTATION I am seeing Ms. Lemons at our [facility] telemetry floor as electrophysiology senior safety management consultant. Her problems are: 1. Chronic atrial fibrillation/atrial flutter. A. Prior history of persisting atrial fibrillation. B. Current paroxysms of atrial flutter and atrial fibrillation alternating with occasional sinus rhy thm on this admission. 2. History of sinus node disease and AV block, prompting a dual chamber pacemaker implantation in e past. 3. CHADS-VASc score of 5 with history of diabetes, hypertension, age, and gender, previously on Coum patricia now switched to Xarelto. 4. History of duodenal ulcer in the past. 5. End-stage renal disease, on peritoneal dialysis. ALLERGIES: None noted. MEDICATIONS AT HOME: Include ICaps, [place] 3 fatty acid, folic acid, ferrous gluconate, magnesium oxi de, vitamin D3, Super B complex, tramadol, Epogen, Coumadin, gabapentin. SUBJECTIVE: Ms. Lemons is here with symptoms of lower extremity swelling, possible lower extremity hematoma which was felt to be related to her chronic Coumadin therapy, hence the Coumadin this admis radha. She also noted to have dizziness, weakness and increased confusion and slurring of speech. Sh e was monitored in the hospital, noted to have bearing rhythm including short sinus rhythm with atria l pacing, but also episodes of atrial fibrillation and atrial flutter is also noted. Rare occasions of atrial flutter . She denies new stroke-like symptoms. No fever, chills, cough. No PND or orthopnea. She still has lower extremity edema, mild chronic confusion constant with baseline lizeth ia. Rest of 12-point system otherwise unremarkable. PAST MEDICAL HISTORY: As above. The patient has prior history of preserved LV function on echocardi ogram at 60%-65%, mild TR and MR, significant left atrial enlargement. Echo on 07/19/2015, more rece nt echo revealed normal LV function. SOCIAL HISTORY: Patient lives at home with her family. Minimal alcohol consumption. Denies drug or tobacco abuse. FAMILY HISTORY: Noncontributory. OBJECTIVE: VITAL SIGNS: Blood pressure is 110/64, heart rate 97, respiration is 20, temperature 97.7 degrees Fa hrenheit. GENERAL: She is alert and oriented woman in no apparent distress. NECK: Supple. Jugular veins not distended. CHEST: Coarse without crackles. HEART: Sounds are irregularly irregular. S1 and S2 is variable. No murmur or gallop. ABDOMEN: Benign. Bowel sounds positive. EXTREMITIES: Lower extremity with bilateral edema. Left precordial pacing insertion site is well he aled. Pulses are diminished. NEUROLOGIC: Patient is nonfocal. Some decubitus appearing scars on the lower extremity. SKIN: Without rash. DATABASE: EKG is reviewed extensively. Baseline EKG does reveal sinus rhythm, alternating with mult ifocal atrial tachycardia. Subsequent EKG also revealed short sinus rhythm with PACs. Telemetry str ips do reveal episode of atrial flutter which could be typical isthmus-dependent, although difficult to evaluate due to limited number of leads. LABORATORY DATA: White blood cell count 8.6, hemoglobin 10.1, platelet count is 426. Sodium 130, po tassium 3.9, BUN is 66, creatinine 6, INR 2.3 noted. IMAGING DATA: Brain CT shows chronic changes, no acute abnormality. ASSESSMENT AND PLAN: Ms. Lemons is a pleasant 83-year-old woman with history of chronic atrial fib rillation, albeit on occasion sinus rhythm still returns. She also has issues with anticoagulation a nd hence markedly CHADS-VASc score, will be imperative to continue some form of it. She had some occ asional excessive INR levels as in December. Now, she is on a lower dose of Xarelto, which is appropriate for her end-stage renal disease status. 1. At this point, I would advocate conservative therapy for this elderly lady with multiple comorbid ities. Although atrial flutter circuit ablation is a potential possibility, she likely will not elim inate all her atrial arrhythmia circuit. If maintaining sinus rhythm is a strong consideration, I th ink likely amiodarone would be a potential option. Alternatively, Multaq could be considered. On th e other hand, at this point, I think rate control might be a better option. 2. Elevated Jeff score. Continue lower dose Xarelto appropriate for renal status. 3. History of diastolic heart failure, currently reasonably compensated. 4. Chronic pacemaker use, routine monitoring, consider turning antitachycardic therapies on if avail able, will interrogate pacemaker. 5. We will follow with you. Thank you for the consult.
[2018-06-04] MEDS ORDERED: Saccharomyces boulardii 250 MG CAP PO SCH (09:00)
[2018-06-04] MEDS ORDERED: Cipro 250 MG TAB PO SCH (09:00)
--- NOTE | 2018-06-04 09:07 | PDOC.CTH ---
Cardiology Progress Note - Subjective The pt seen and examined. No overnight events. No cardiac complaints. Per family, her mental status has been improving. - Objective Vital Signs Temp Pulse Resp BP Pulse Ox 06/04/18 03:06 97.7 F 113 H 16 153/69 H 98 Admit Weight 155 lb Weight 177 lb 6 oz 06/03/18 06/04/18 06/05/18 06:59 06:59 06:59 Intake Total 2330 2545 Output Total 0 0 Balance 2330 2545 - Physical Examination General/Neuro: alert & oriented x3 Neck: no JVD present Lungs: CTA Heart: other: (irregular) Abdomen: soft Extremities: other: (No edema) - Telemetry Telemetry Rhythm: SR/AFib/Aflutter 90-100s - Labs Result Diagrams: 06/03/18 18:35 06/03/18 18:35 Troponin/CKMB CK-MB (CK-2) 2.2 ng/mL (0-6.6) 05/31/18 10:33 Troponin I 0.171 ng/mL (< 0.028) H 06/02/18 20:06 - Assessment/Plan 1. New onset Aflutter - since 06/02/18 @ 2320; On Xarelto 15mg qd; Medical tx at this moment as EP recommendation; Will start Amiodarone 400mg 1 tab PO BID for 2wks, 200mg 1 tab BID for 2wks, and 200mg 1 tab PO qd. 2. Afib - remains in SR and Afib/Aflutter; On Xarelto 15mg qd (renal dose; confirmed by Dr Steinberg) and Amiodarone PO; cont. to monitor on tele 3. Multiple hematomas and ecchymosis - stable; on Xarelto 15mg qd; 4. ESRD with PD daily - managed by Dr Steinberg 5. UTI - on IV antibiotics; managed by PCP 6. AMS - gradually improving; 7. Anemia - no changed; On Epogen qwk. cont. to monior 8. Hx of fall - PT consult 9. Hypokalemia - stable 10. Hyponatremia - MAR reviewed Review of Systems - Review of Systems Constitutional: reports: no symptoms reported EENTM: reports: no symptoms reported Respiratory: reports: no symptoms reported Cardiac (ROS): reports: no symptoms reported ABD/GI: reports: no symptoms reported : reports: no symptoms reported Musculoskeletal: reports: no symptoms reported
[2018-06-04] MEDS ORDERED: Amiodarone 200 MG TAB PO SCH ×3 (09:15→21:00)
[2018-06-04] MEDS: Folic Acid 1 MG TAB PO SCH (10:20)
[2018-06-04] MEDS: Magnesium Oxide 400 MG TAB PO SCH (10:20)
[2018-06-04] MEDS: Potassium Chloride 20 MEQ TAB PO SCH (10:21)
[2018-06-04] MEDS: Ferrous Gluconate 324 MG TAB PO SCH (10:22)
[2018-06-04] MEDS: Rivaroxaban 15 MG TAB PO SCH (10:23)
[2018-06-04 10:28] LABS: INR-International Normal Ratio 2.3; Prothrombin Time 25.4 SEC (12.0-14.7)
[2018-06-04 12:50] VITALS: TEMP 98.1
[2018-06-04 15:50] VITALS: BP 102/66
--- NOTE | 2018-06-04 22:55 | DIS ---
DATE OF ADMISSION: 05/31/2018 DATE OF DISCHARGE: 06/04/2018 DISCHARGE DIAGNOSES: As of the followin. Metabolic encephalopathy. 2. Urinary tract infection. 3. End-stage renal disease on dialysis. 4. Atrial flutter. 5. Chest pain. 6. Lower extremity hematoma, possible peripheral neuropathy. HOSPITAL COURSE: Patient is a very pleasant 83-year-old patient who initially presented to the [facility] with generalized lower extremity weakness which started about 3 or 4 days after she started on Ne urontin and there were also some concerns of UTI. She was initially treated for UTI; however, she ge ts peritoneal dialysis. She does not have any abdominal pain that could indicate any infections arou nd her peritoneum. She was seen by Nephrology and by Cardiology. At that time, her Coumadin was tra nsitioned to Xarelto. I have talked to multiple people including pharmacy including Nephrology and C ardiology in regards to end-stage renal disease and Xarelto; however, they all said it was okay to co ntinue it, so we will continue the Xarelto. Patient was seen by physical therapy and with recommenda tion for inpatient rehabilitation, which patient most likely would benefit. Patient's daughter is at the bedside. She has been updated. Urine culture and blood cultures for greater than 48 hours were negative. She was seen also by electrophysiology for her atrial flutter and was put on amiodarone, which possibly was a thought maybe that was causing her to have generalized weakness. Patient also i s going to be on amiodarone per the tapering schedule which I have also put in the dates on the disch arge medications. Patient again will be discharged to inpatient rehabilitation and she will follow u p with Cardiology and also with Dr. Steinberg. MEDICATIONS: Her home medications will be mag oxide 400 mg daily, folic acid 0.8 p.o. daily, tramado l 50 mg b.i.d. p.r.n., Xarelto 50 mg daily, Cipro 250 daily, amiodarone 400 b.i.d. initially, then 20 0 b.i.d. for 23 days and then after that 200 mg daily, and also on iron (03:10) mg p.o. daily. PHYSICAL EXAMINATION. VITAL SIGNS: Temperature of 97.7, 18, 95, (03:16). GENERAL: She is awake, alert, oriented x3, not in apparent distress. CARDIOVASCULAR: S1, S2 present. No murmurs, rubs or gallops. ABDOMEN: Soft, nontender. Bowel sounds are present x2. EXTREMITIES: No edema. Pedal pulses are present x2. She is being discharged to inpatient rehabilitation. She will follow up with Cardiology and also she will follow up with EP and her primary care doctor.
[2018-06-19] MEDS ORDERED: Amiodarone 200 MG TAB PO SCH (09:00)
[2018-07-03] MEDS ORDERED: Amiodarone 200 MG TAB PO SCH (09:00)
== END 2018-06-04 16:00 | DRG 689 ==
LOC: ERS 10:09 → 2NO 15:36
PROVIDERS: ADMIT Internal Medicine; ATTEND Internal Medicine
PROC: 3E1M39Z Irrigation of Peritoneal Cavity using Dialysate, Percutaneous Approach (ICD-10-PCS; 2018-05-31)
PROC: 3E1M39Z Irrigation of Peritoneal Cavity using Dialysate, Percutaneous Approach (ICD-10-PCS; 2018-06-01)
PROC: 3E1M39Z Irrigation of Peritoneal Cavity using Dialysate, Percutaneous Approach (ICD-10-PCS; 2018-06-02)
PROC: 3E1M39Z Irrigation of Peritoneal Cavity using Dialysate, Percutaneous Approach (ICD-10-PCS; principal; 2018-06-03)
DX: N39.0 Urinary tract infection, site not specified (principal); N18.6 End stage renal disease; G93.41 Metabolic encephalopathy; I12.0 Hypertensive chronic kidney disease with stage 5 chronic kidney disease or end stage renal disease; I24.8 Other forms of acute ischemic heart disease; I48.92 Unspecified atrial flutter; E87.1 Hypo-osmolality and hyponatremia; Z99.2 Dependence on renal dialysis; E11.22 Type 2 diabetes mellitus with diabetic chronic kidney disease; E78.5 Hyperlipidemia, unspecified; H40.9 Unspecified glaucoma; H35.30 Unspecified macular degeneration; M19.90 Unspecified osteoarthritis, unspecified site; E87.6 Hypokalemia; I95.9 Hypotension, unspecified; R58 Hemorrhage, not elsewhere classified; K21.9 Gastro-esophageal reflux disease without esophagitis; I48.2 Chronic atrial fibrillation; E11.42 Type 2 diabetes mellitus with diabetic polyneuropathy; D63.1 Anemia in chronic kidney disease; E86.0 Dehydration; Z79.01 Long term (current) use of anticoagulants; Z91.81 History of falling; Z90.49 Acquired absence of other specified parts of digestive tract; Z95.0 Presence of cardiac pacemaker
CPT/HCPCS: 36415; 51701; 70450; 71045; 80048; 80053; 81003; 81015; 82553; 83605; 84484; 85025; 85610; 85730; 87040; 87086; 90945; 93005; 93010; 93970; 96365; A4353; G0257; G8978-GP-CM; G8979-GP-CK; J0696; J3010; J7050; Q4081

== ENCOUNTER 2018-09-03 15:35 | Inpatient (IN) | payer MEDICARE ==
[2018-09-03 16:33] LABS: #Basophils 0.1 thou/uL (0.0-0.2); #Eosinphils 0.1 thou/uL (0.0-0.7); #Lymphocytes 1.3 thou/uL (1.20-3.40); #Monocytes 0.8 thou/uL (0.11-0.59); #Neutrophils 14.7 thou/uL (1.40-6.50); %Basophils 0.4 % (0.0-1.0); %Eosinophils 0.4 % (0.0-10.0); %Lymphocytes 7.7 % (21.0-51.0); %Monocytes 4.9 % (0.0-10.0); %Neutrophils 86.7 % (42.0-75.0); Mean Corpuscular HGB CONC 32.3 g/dL (32.0-36.0); Mean Corpuscular Hemoglobin 31.3 pg (27.0-31.0); Mean Corpuscular Volume 96.9 fL (78.0-98.0); Platelet Count 241 thou/uL (130-400); RBC Distribution Width 14.8 % (11.5-14.5); White Blood Cell (WBC) Count 16.9 thou/uL (4.8-10.8)
[2018-09-03 16:47] LABS: ALT (SGPT) 27 U/L (8-55); AST (SGOT) 35 U/L (5-34); Albumin 2.5 g/dL (3.4-4.8); Alkaline Phosphatase 159 U/L (40-150); Anion Gap 29 mmol/L (10-20); BUN (Urea Nitrogen) 67 mg/dL (9.8-20.1); Bilirubin, Total 0.4 mg/dL (0.2-1.2); Calc. Creatinine Clearance 0 mL/min (70-130); Calcium 8.9 mg/dL (7.8-10.44); Carbon Dioxide 15 mmol/L (23-31); Chloride 89 mmol/L (98-107); Estimated GFR-MDRD 4; Globulin 3.1 g/dL (2.4-3.5); Glucose 103 mg/dL (83-110); Protein, Total 5.6 g/dL (6.0-8.3); Sodium 130 mmol/L (136-145)
[2018-09-03 16:48] LABS: Bilirubin Moderate (Negative); Blood, Urine Large (Negative); Glucose, Urine (Dipstick) Negative (Negative); Leukocyte Moderate (Negative); Nitrite Positive (Negative); Protein, Urine (Dipstick) 100 mg/dL (Neg-Trace); Urobilinogen 0.2 mg/dL (0.2-1.0); pH, Urine 7.5 (5.0-9.0)
[2018-09-03 16:50] LABS: Potassium 2.9 mmol/L (3.5-5.1)
[2018-09-03 16:56] LABS: Clarity Turbid (Clear); Specific Gravity, Urine 1.024 (1.002-1.036)
[2018-09-03 16:57] LABS: Bacteria/HPF 4+ HPF (None Seen); Hyaline Casts/LPF NONE SEEN LPF (0-3 Hyaline)
[2018-09-03] MEDS ORDERED: cefTRIAXone\\ROCEPHIN 2 GM VIAL ONE (17:01)
--- NOTE | 2018-09-03 17:18 | RAD ---
ONE VIEW CHEST: 09/03/18 HISTORY: Altered mental status. COMPARISON: 05/31/18. FINDINGS: There is slight elongation of the aorta. Normal cardiac silhouette. Pulmonary vessels and hilum are n ormal. Costophrenic angles are clear. Chronic changes of the lung parenchyma. Lung volumes are dimini shed, likely due to a poor inspiratory effort. No pneumothorax. Chronic degenerative changes in the l eft shoulder are noted. Stable left sided transvenous pacemaker. IMPRESSION: No acute cardiopulmonary process. POS: MARY
[2018-09-03 17:20] LABS: CKMB 11.1 ng/mL (0-6.6)
[2018-09-03] MEDS ORDERED: SODIUM CHLORIDE 0.9% IVPB SCH (17:30)
[2018-09-03] MEDS ORDERED: GENTAMICIN SULFATE IVPB SCH (17:30)
[2018-09-03] MEDS ORDERED: cloNIDine 0.1 MG TAB PO PRN (18:56)
[2018-09-03] MEDS ORDERED: Nitroglycerin 0.4 MG TAB (25 Tab Bottle) SL PRN (18:56)
[2018-09-03] MEDS ORDERED: Benzonatate 100 MG CAP PO PRN (18:56)
[2018-09-03] MEDS ORDERED: Bisacodyl 5 MG TAB PO PRN (18:56)
[2018-09-03] MEDS ORDERED: hydrALAZINE 20 MG/ML VIAL SLOW IVP PRN (18:56)
[2018-09-03] MEDS ORDERED: CCU Electrolyte Replacement 1 EACH FS ONE (18:56)
[2018-09-03] MEDS ORDERED: Calcium Carbonate 500 MG ChewTAB PO PRN (18:56)
[2018-09-03] MEDS ORDERED: Ondansetron PF 4 MG/2 ML Vial IVP PRN ×2 (18:56)
[2018-09-03] MEDS ORDERED: Senokot S 8.6-50 MG TAB PO PRN ×2 (18:56)
[2018-09-03] MEDS ORDERED: Diabetic Tussin 200 MG/10 ML UDCUP PO PRN (18:56)
[2018-09-03] MEDS ORDERED: Sodium Chloride 0.9% 1,000 ML IV SCH (19:00)
[2018-09-03] MEDS ORDERED: Norepinephrine 8 MG/0.9% NS 250 ML ONE (19:05)
[2018-09-03] MEDS ORDERED: Vancomycin HCl 1 GM in Premix Bag 1 BAG IVPB SCH (19:15)
[2018-09-03] MEDS ORDERED: Vancomycin HCl 500 MG in Sodium Chloride 0.9% 100 ML IVPB SCH (19:15)
[2018-09-03] MEDS ORDERED: HOLD VANCOMYCIN FOR LEVEL >20 FS SCH (19:15)
[2018-09-03] MEDS ORDERED: Vancomycin HCl 250 MG in Sodium Chloride 0.9% 100 ML IVPB SCH (19:15)
[2018-09-03] MEDS ORDERED: Vancomycin HCl 750 MG in Sodium Chloride 0.9% 250 ML 250 ML IVPB SCH (19:15)
--- NOTE | 2018-09-03 19:45 | RAD ---
PORTABLE AP CHEST X-RAY 09/03/18 HISTORY: Central line placement. COMPARISON: 09/03/18. FINDINGS: Dual lead left subclavian cardiac pacemaking device noted in place. There has been interval placement of right subclavian central venous catheter with the tip overlying the right atrium. There is no maria alejandra dence of a pneumothorax. No pleural effusion is seen. Linear atelectasis is present in the mid lung z ones bilaterally. Degenerative changes are seen in the spine. There is severe bilateral glenohumeral osteoarthropathy, and degenerative changes are present in the spine. No other interval change. IMPRESSION: Interval placement of right subclavian central venous catheter with the tip overlying the right atriu m. No pneumothorax is visualized. POS: [facility]
[2018-09-03 19:48] LABS: Critical Call Chem Troponin I RESULT DECREASING; Troponin I 0.593 ng/mL (< 0.028)
[2018-09-03] MEDS ORDERED: Potassium Chloride 40 MEQ in Sodium Chloride 0.9% 500 ML IVPB SCH (20:00)
[2018-09-03] MEDS ORDERED: Aspirin 325 MG TAB ONE (20:20)
[2018-09-03] MEDS ORDERED: Pantoprazole 40 MG VIAL ONE (20:20)
[2018-09-03] MEDS ORDERED: Aspirin 300 MG Suppository ONE (20:27)
--- NOTE | 2018-09-03 20:34 | HP ---
PRIMARY CARE PHYSICIAN: Herber Bowling MD CHIEF COMPLAINT: Altered mental status, poor appetite, abdominal pain, nausea, vomiting, diarrhea, and generalized weakness. HISTORY OF PRESENTING ILLNESS: Ms. Lemons is a pleasant 83-year-old female with history of end-stage renal disease, on peritoneal dialysis, as well as history of atrial flutter, on amiodarone and Xarelto, who presented to the ER with above-mentioned complaints. History is mainly obtained by her daughters present at bedside. The patient is unable to provide any history at this time as she is very lethargic and somnolent. Her daughters report that she was admitted to our facility in May. Electronic medical records have been checked for that admission. At that time, she was also admitted with altered mental status and was treated for UTI. She was discharged to rehab at that time, and the daughters report that even though she is in a wheelchair, she actually has been doing much better since the discharge from the hospital in May 2018. Normally, she is self-sufficient, awake, alert, oriented, and is able to take care of herself. But the last week or so, they have noticed that she started to go downhill. She has episodes where she almost passes out, sometimes 2 minutes, sometimes 25 minutes. They report that her appetite has gone. She is complaining of more pain in the back and has been having some nausea, vomiting, and loose stool for the last 2 or 3 days. Her daughter also noticed some blood in her diapers mixed with the stools. The patient notably is on Xarelto for her AFib. Because of all the symptoms, they brought her to the ER, and in the emergency room, she was found to have leukocytosis as well as lactic acidosis and was hypotensive. Her urinalysis once again was consistent with multiple bacteria. She was diagnosed with sepsis likely due to UTI and is now being admitted to critical care unit with septic shock. She has received over a liter of IV fluids and now has been started on Levophed as she cannot tolerate any more IV fluids given end-stage renal disease. PAST MEDICAL HISTORY: 1. End-stage renal disease, on peritoneal dialysis. 2. Diet-controlled diabetes. 3. Hypertension. 4. Dyslipidemia. 5. Glaucoma. 6. Macular degeneration. 7. Degenerative joint disease. 8. History of duodenal ulcer. 9. History of atrial fibrillation, on chronic anticoagulation with Xarelto. PAST SURGICAL HISTORY: 1. Cholecystectomy. 2. Pacemaker placement. 3. Dialysis fistula in the left upper extremity. 4. PD catheter placement. SOCIAL HISTORY: She lives at home with her family. No history of drug, tobacco or alcohol abuse. FAMILY HISTORY: No significant family history of coronary artery disease or stroke. ALLERGIES: NONE. CURRENT HOME MEDICATIONS: Not confirmed as yet. We will try to get the correct list from her family later. REVIEW OF SYSTEMS: Cannot be reliably completed as the patient is very lethargic, but she does endorse weakness, nausea, poor appetite and abdominal pain. She does not make much urine. LABORATORY DATA: Her CBC shows WBCs at 16.9 with 86% neutrophils. Hemoglobin is 10.0, which is at her baseline. Platelet count normal. Serum chemistry shows sodium of 130, potassium 2.9, chloride 89, bicarb 15, anion gap 29, BUN 67, creatinine 9.42, lactic acid 2.7 with a repeat lactic acid of 0.9, and magnesium normal at 1.9. CK-MB 11.1. Troponin 0.657. Urinalysis showed large blood, positive nitrite, leukocyte esterase, rbc's, wbc's and bacteria. Chest x-ray by my review shows no significant abnormality. No infiltrate, effusion or edema. CT scan of the brain is ordered and is pending at this time. PHYSICAL EXAMINATION: VITAL SIGNS: Most recent blood pressure 104/53, but her systolic blood pressure has been as low as in the 80s. Heart rate anywhere from 60 to 79. Afebrile. GENERAL: She appears pale and lethargic. She follows commands, but minimally. She wakes up to verbal and tactile stimulus, but then goes back asleep quickly. HEENT: Mucous membrane is slightly dry. No oropharyngeal exudate or erythema. Head is normocephalic and atraumatic. Pupils equal and reactive to light and accommodation. Extraocular movement intact. NECK: Supple without any lymphadenopathy, JVD or bruit. CHEST: Clear to auscultation without any wheezing, rales or rhonchi. HEART: Rate and rhythm are regular without any murmurs, rubs or gallops. ABDOMEN: Nondistended. She is tender to palpation diffusely. PD catheter is in place. No rebound or guarding noticed. EXTREMITIES: Free of any cyanosis, clubbing or edema. NEUROLOGICAL: Limited as the patient does not follow much commands. PSYCHIATRIC: Lethargic. IMPRESSION AND PLAN: 1. Sepsis with septic shock. The patient will be treated with broad-spectrum IV antibiotics. Blood culture and urine culture will be followed. Likely source is a UTI at this time. However, peritonitis and PD catheter involvement cannot be ruled out. We will obtain a CT scan of her abdomen once she is stable. Currently, she is not able to get a CT scan because of low blood pressure. She will be started on Levophed and will be admitted to critical care unit. I have discussed the prognosis with the family at bedside and at this time they do not want anything aggressive except for pressors. She would be a do not resuscitate and do not intubate patient. 2. Elevated troponin, likely demand ischemia from severe sepsis. She had a cardiological workup done in May when she was admitted. We will obtain an echocardiogram once she is stable. Continue to trend serial cardiac enzymes for now. 3. Hypokalemia. I have discussed this with her senior recruiter, Dr. Steinberg. We will give her one dose of KCl and rest management as per dialysis. Magnesium levels were checked and were normal. 4. Bright red blood per rectum, most likely secondary to hemorrhoids. However, the patient is on Xarelto and has not had a recent colonoscopy in multiple years. We will follow the H and H, and if she continues to pass blood per rectum, we will go ahead and request a GI consultation for possible colonoscopy. Her last colonoscopy was in May 2018, which showed diverticulosis and diverticular bleeding at that time. At this time, we will hold her Xarelto for tonight until her H and H is stable and the bleeding is not happening anymore. We will put her on IV Protonix for now. 5. Altered mental status, most likely secondary to sepsis with septic shock. We will follow up upon the results of the CT scan of the brain, though stroke is less likely. The patient most likely is having syncopal episodes because of hypotension. She will be monitored with frequent neuro checks. 6. End-stage renal disease. Nephrology has been consulted for maintenance hemodialysis. 7. History of atrial fibrillation. Continue amiodarone for now, but hold the Xarelto for tonight until the GI bleed has been completely ruled out. 8. Code status, do not intubate or resuscitate except for pressors as per her daughters present in the room. 9. Deep venous thrombosis and gastrointestinal prophylaxis with SCDs and Protonix. DISPOSITION: Ms. Lemons is currently being admitted to the hospital with severe sepsis, likely secondary to urinary tract infection. Estimated length of stay at this time is at least 2 to 3 midnights. Further management will depend upon her clinical course. Job ID: [id number]
[2018-09-03] MEDS ORDERED: Vancomycin HCl 1 GM in Sodium Chloride 0.9% 250 ML 250 ML IVPB SCH (21:00)
--- NOTE | 2018-09-03 21:12 | CT ---
NONCONTRAST CT HEAD: 09/03/18 HISTORY: Altered mental status, weakness, loss of appetite. COMPARISON: 05/31/18. FINDINGS: There is a new low density area seen within the left occipital lobe in the distribution o the left po sterior cerebral artery compatible with an acute to subacute infarction in the distribution of the le ft posterior cerebral artery. The area of encephalomalacia and diminished attenuation in the anterior right frontal lobe is again seen likely attributable to remote area of infarction. Remote lacunar in farction in the right lentiform nucleus is again present as well. There are chronic small vessel ischemic changes and cerebral volume loss similar to the prior study. Again noted is opacification of the left sphenoid sinus. Mastoid air cells are clear. No other interv al change. IMPRESSION: 1. Acute to subacute infarction in the medial left parieto-occipital lobe in the distribution of the left posterior cerebral artery. 2. Stable area of encephalomalacia right frontal lobe with stable remote lacunar infarctions rig ht basal ganglia. 3. Chronic small vessel ischemic changes and cerebral volume loss similar to prior exam. 4. Remote infarction in the right cerebellar hemisphere. 5. Above findings discussed with Dr. De La Rosa in the Emergency Department on 09/03/18 at 1953 hour s. POS: [facility]
[2018-09-03 22:46] LABS: Lactic Acid 0.7 mmol/L (0.5-2.2)
[2018-09-03 22:50] LABS: Troponin I 0.614 ng/mL (< 0.028)
[2018-09-04] MEDS ORDERED: Bacitracin Zinc 1 Packet ONE (01:09)
[2018-09-04 04:16] LABS: #Basophils 0.1 thou/uL (0.0-0.2); #Lymphocytes 1.4 thou/uL (1.20-3.40); #Monocytes 0.9 thou/uL (0.11-0.59); #Neutrophils 17.1 thou/uL (1.40-6.50); %Basophils 0.3 % (0.0-1.0); %Eosinophils 0.1 % (0.0-10.0); %Lymphocytes 7.1 % (21.0-51.0); %Monocytes 4.4 % (0.0-10.0); %Neutrophils 88.2 % (42.0-75.0); Hemoglobin 9.5 g/dL (12.0-16.0); Mean Corpuscular HGB CONC 32.4 g/dL (32.0-36.0); Mean Corpuscular Hemoglobin 32.4 pg (27.0-31.0); Mean Corpuscular Volume 99.9 fL (78.0-98.0); Mean Platelet Volume 7.1 fL (7.4-10.4); Platelet Count 274 thou/uL (130-400); Red Blood Cell (RBC) Count 2.94 mill/uL (4.20-5.40); White Blood Cell (WBC) Count 19.4 thou/uL (4.8-10.8)
[2018-09-04 04:53] LABS: ALT (SGPT) 32 U/L (8-55); AST (SGOT) 47 U/L (5-34); Albumin 2.2 g/dL (3.4-4.8); Alkaline Phosphatase 147 U/L (40-150); Anion Gap 24 mmol/L (10-20); BUN (Urea Nitrogen) 65 mg/dL (9.8-20.1); Bilirubin, Total 0.3 mg/dL (0.2-1.2); Calc. Creatinine Clearance 0 mL/min (70-130); Calcium 8.1 mg/dL (7.8-10.44); Carbon Dioxide 17 mmol/L (23-31); Chloride 95 mmol/L (98-107); Estimated GFR-MDRD 5; Globulin 3.3 g/dL (2.4-3.5); Glucose 175 mg/dL (83-110); Potassium 3.3 mmol/L (3.5-5.1); Protein, Total 5.5 g/dL (6.0-8.3); Sodium 133 mmol/L (136-145)
[2018-09-04] MEDS ORDERED: Norepinephrine 8 MG/0.9% NS 250 ML ONE ×2 (05:09→11:32)
[2018-09-04] MEDS ORDERED: Potassium Chloride 20 MEQ in Premix Bag 1 BAG IVPB SCH (07:45)
[2018-09-04] MEDS ORDERED: Aspirin 300 MG Suppository ONE (08:44)
[2018-09-04] MEDS ORDERED: Potassium Chloride 20 MEQ/100 ML PREMIX BAG ONE (08:45)
[2018-09-04] MEDS ORDERED: Famotidine 20 MG TAB PO SCH (09:00)
--- NOTE | 2018-09-04 12:03 | CON ---
DATE OF CONSULTATION: HISTORY OF PRESENT ILLNESS: Ms. Lemons is an 83-year-old white female with ESRD, was admitted for generalized malaise. She was also found to be hypotensive. She was given normal saline initially with no significant improvement. She has been started on Levophed and blood pressure is much improved. Due to decreased p.o. intake, it was agreed to start her on normal sinus at 75 mL an hour. She was also noted to be hypokalemic with a potassium less than 3 and this was corrected. This morning, she is feeling a little better, but still tired. We are following her up for maintenance peritoneal dialysis. She did undergo peritoneal dialysis using only a 1.5% PD solution to minimize ultrafiltration due to the low blood pressure. REVIEW OF SYSTEMS: Decreased appetite. Decreased energy level. No nausea. No vomiting. No diarrhea. No syncopal episode. No productive cough. No headache. No diplopia. No abdominal pain. No fever or chills. No shortness of breath. No chest pain. No dysuria. No urinary frequency. PAST MEDICAL HISTORY: Includes the following; 1. The patient has end-stage renal disease-currently on nocturnal peritoneal dialysis. 2. Longstanding history of hypertension, chronic. 3. Gastroesophageal reflux disease. 4. Status post cardiac arrhythmia. 5. Hyperlipidemia. 6. History of proteinuria. PAST SURGICAL HISTORY: Status post CT scan-guided renal biopsy, status post PD catheter placement, status post bilateral cataract surgery, status post cholecystectomy, status post colonoscopy, status post pacemaker placement. ALLERGIES: NONE. TRAUMA: Status post left elbow fracture. IMMUNIZATION: Up-to-date. HOSPITALIZATIONS: Please see past medical history. SOCIAL HISTORY: The patient lives in [place], but originally from [place]. She is . She lives with her daughter. She has total of six children. No smoking. No alcohol intake. Status post blood transfusion. No drug abuse. FAMILY HISTORY: No family history of ESRD. PHYSICAL EXAMINATION: VITAL SIGNS: Blood pressure is 106/70, heart rate 70. GENERAL: Awake, lethargic, not in overt distress. SKIN: Adequate turgor. HEENT: She has slightly pale conjunctivae. Anicteric sclerae. No neck mass. No carotid bruits. No JVD. CHEST: No deformities. LUNGS: Clear breath sounds. HEART: Normal sinus rhythm. No murmurs, gallops, or rubs. ABDOMEN: Globular, soft, and nontender. No masses. Positive for PD catheter. EXTREMITIES: Positive for edema. MEDICATIONS: Medications of September 04, 2018, show the following; 1. Aspirin 300 mg daily. 2. Tessalon Perles 100 mg q.6. 3. Ceftriaxone 1 g IV q.24 hours. 4. Half normal saline at 75 mL an hour. 5. D5 half-normal saline at 75 mL/hour. 6. Protonix 40 mg IV daily. 7. Status post vancomycin. DIAGNOSTIC DATA: Blood culture, no growth today. Urinalysis of September 03, 2018, showed specific gravity of 10.24, white count was greater than 50. ASSESSMENT AND PLAN: 1. Sepsis syndrome/urinary tract infection, on empiric IV antibiotics, on ceftriaxone and vancomycin. 2. Hypotension, currently on pressor support. IV fluid has been restarted. 3. End-stage renal disease. Continue current CCPD regimen. My bias is to continue the 1.5% PD solution to minimize fluid removal due to the low blood pressure. Case discussed at length with the patient's daughters. Agree with current management. Job ID: [id number]
[2018-09-04] MEDS ORDERED: Pantoprazole 40 MG VIAL ONE (12:28)
[2018-09-04] MEDS: Norepinephrine 8 MG/250 ML BAG IVPB SCH ×2 (14:15→21:52)
[2018-09-04 14:59] VITALS: BMI 31.9
--- NOTE | 2018-09-04 15:07 | PDOC.PN ---
- Subjective Encounter Start Date: 09/04/18 Encounter Start Time: 15:05 Subjective: wants to eat and drink but RN reports failed Bedside swollow -: family at bedside.updated about CT scan results -: still on levophed - Objective Resuscitation Status - Order Detail: 09/03/18 19:36 Resuscitation Status Routine Resuscitation Status: DNAR: NO Resuscitation Discussed with: discussed with 2 daughters at bedside. pt somnolent & can't tell MAR Reviewed: Yes Vital Signs & Weight: Vital Signs (12 hours) Temp Pulse Pulse Pulse Resp BP BP 09/04/18 14:15 98.4 F 76 20 09/04/18 08:50 83 85 107/49 L 112/60 BP Pulse Ox 09/04/18 14:15 117/75 99 09/04/18 08:50 Weight Weight 147 lb 11.355 oz Result Diagrams: 09/04/18 03:37 09/04/18 03:37 Additional Labs: Microbiology 09/03/18 17:26 Venous blood - Right Foot Blood Culture - Preliminary Specimen has been received and culture in progress. No Growth to date. 09/03/18 17:26 Venous blood - Right Arm Blood Culture - Preliminary Specimen has been received and culture in progress. No Growth to date. 09/03/18 16:35 Urine Straight Catheter Urine Culture - Preliminary Lactose Flag Decorator Laboratory Tests 06/02/18 06/18/18 09/03/18 20:06 13:20 16:22 Hgb 11.0 L Troponin I 0.171 H 0.657 H* 09/03/18 09/03/18 09/03/18 16:22 19:11 21:41 Hgb 10.0 L Troponin I 0.593 H* 0.614 H* 09/04/18 03:37 Hgb 9.5 L Troponin I Phys Exam - Physical Examination Constitutional: NAD lying on side .awake ,lethargic HEENT: PERRLA, moist MMs, sclera anicteric, oral pharynx no lesions Neck: no nodes, no JVD, supple, full ROM Respiratory: no wheezing, no rales, no rhonchi, clear to auscultation bilateral Cardiovascular: RRR, no significant murmur Gastrointestinal: soft, non-tender, no distention, positive bowel sounds TTP.PD cathter in place Musculoskeletal: no edema, pulses present Neurological: moves all 4 limbs Psychiatric: normal affect Skin: no rash Dx/Plan (1) Septic shock Code(s): A41.9 - SEPSIS, UNSPECIFIED ORGANISM; R65.21 - SEVERE SEPSIS WITH SEPTIC SHOCK Status: Acute (2) UTI (urinary tract infection) Status: Acute (3) Acute CVA (cerebrovascular accident) Code(s): I63.9 - CEREBRAL INFARCTION, UNSPECIFIED Status: Acute (4) Hematochezia Code(s): K92.1 - MELENA Status: Acute Comment: Kajal on hold. H/O diverticular bleed in 2013 (5) Demand ischemia Code(s): I24.8 - OTHER FORMS OF ACUTE ISCHEMIC HEART DISEASE Status: Acute (6) ESRD (end stage renal disease) on dialysis Code(s): N18.6 - END STAGE RENAL DISEASE; Z99.2 - DEPENDENCE ON RENAL DIALYSIS Status: Acute (7) DM2 (diabetes mellitus, type 2) Status: Chronic Qualifiers: Diabetes mellitus assisted insulin use: without assisted use Diabetes mellitus complication status: with kidney complications Diabetes mellitus complication detail: with chronic kidney disease Chronic kidney disease stage : on chronic dialysis Qualified Code(s): E11.22 - Type 2 diabetes mellitus with diabetic chronic kidney disease; N18.6 - End stage renal disease; N18.6 - End stage renal disease; N18.6 - End stage renal disease; N18.6 - End stage renal disease; Z99.2 - Dependence on renal dialysis; Z99.2 - Dependence on renal dialysis; Z99.2 - Dependence on renal dialysis; Z99.2 - Dependence on renal dialysis Comment: accuchecks at goal. (8) Hypokalemia Code(s): E87.6 - HYPOKALEMIA Status: Resolved Comment: Repleted. (9) Paroxysmal atrial fibrillation Code(s): I48.0 - PAROXYSMAL ATRIAL FIBRILLATION Status: Chronic Comment: yana put on hold for now w possible GIB - Plan plan discussed w/ family, continue antibiotics, PT/OT, speech therapy, respiratory therapy, incentive spirometry, out of bed/ambulate, DVT proph w/SCDs Stroke team/.CA ASA. statin when takes PO.Neuro consulted -: replace and recheck potassium -: start gentle IVF as she remians NPO.checked w nephrology -: PD while in pt daily.monitor renal Fx -: cont broad spectrum IV ABx. wean off levophed as tolerated.ID consulted * .cont to hold xarleto.GI consulted. H/H stable. * Remains critically ill and high risk of decompensation * * am labs * care discussed w family at bedside Review of Systems - Review of Systems Other: can not be obtained due to lethargy but reports that she has no pain/discomfort - Medications/Allergies Allergies/Adverse Reactions: Allergies Allergy/AdvReac Type Severity Reaction Status Date / Time No Known Drug Allergies Allergy Unknown Verified 06/11/13 22:26 Medications: Current Medications Acetaminophen (Tylenol) 650 mg PO Q4H PRN PRN Reason: Headache/Fever/Mild Pain (1-3) Aspirin (Aspirin) 300 mg CA DAILY ERLIN Benzonatate (Tessalon) 100 mg PO Q6H PRN PRN Reason: Cough Bisacodyl (Dulcolax) 10 mg PO DAILYPRN PRN PRN Reason: Constipation Calcium Carbonate (Tums) 1,000 mg PO Q4H PRN PRN Reason: Heartburn or Indigestion Clonidine (Catapres) 0.1 mg PO Q4H PRN PRN Reason: SBP > 160____ Guaifenesin (Robitussin Sf) 200 mg PO Q4H PRN PRN Reason: Cough Hydralazine HCl (Apresoline) 10 mg SLOW IVP Q4H PRN PRN Reason: SBP > 180 and HR < 70 Ceftriaxone Sodium 2 gm/ (Sodium Chloride) 100 mls @ 200 mls/hr IVPB Q24HR ERLIN Vancomycin HCl 1 gm/ Device 200 mls @ 200 mls/hr IVPB WILLCALL ERLIN Vancomycin HCl 750 mg/ Sodium (Chloride) 250 mls @ 250 mls/hr IVPB WILLCALL ERLIN Vancomycin HCl 500 mg/ Sodium (Chloride) 100 mls @ 100 mls/hr IVPB WILLCALL ERLIN Vancomycin HCl 250 mg/ Sodium (Chloride) 100 mls @ 100 mls/hr IVPB WILLCALL ERLIN Dextrose/Sodium Chloride (D5 1/2 Ns) 1,000 mls @ 75 mls/hr IV .[id number] ERLIN Miscellaneous Medication (Pharmacy To Dose) 1 each IVPB PRN PRN PRN Reason: Pharmacy to dose Nitroglycerin (Nitrostat) 0.4 mg SL Q5MIN PRN PRN Reason: Chest Pain Hold Vancomycin For (Level >20) 0 each FS .IF LEVEL >20 ERLIN Ondansetron HCl (Zofran) 4 mg IVP Q6H PRN PRN Reason: Nausea/Vomiting Pantoprazole Sodium (Protonix) 40 mg IVP Q12HR ERLIN Senna/Docusate Sodium (Senokot S) 2 tab PO BID PRN PRN Reason: Constipation Sodium Chloride (Flush - Normal Saline) 10 ml IV Q12HR ERLIN
[2018-09-04] MEDS: Pantoprazole 40 MG VIAL IVP SCH ×2 (15:41→21:52)
[2018-09-04] MEDS: Aspirin 300 MG Suppository PR SCH (15:42)
[2018-09-04] MEDS: Dextrose 5 %-0.45 % NaCl 1,000 ML IV SCH (15:42)
[2018-09-04] MEDS ORDERED: cefTRIAXone\\ROCEPHIN 2 GM in Sodium Chloride 0.9% 100 ML IVPB SCH (17:00)
--- NOTE | 2018-09-04 20:52 | CON ---
DATE OF CONSULTATION: 09/04/2018 CHIEF COMPLAINT: Acute stroke. HISTORY OF PRESENT ILLNESS: The patient was unable to give any medical history. Her daughters were by her bedside and they provided medical history. The patient was last independent in walking, eating, watching TV, and using a walker was before May of this year. In May 2018, she was hospitalized here at [facility]. She went to rehab and had home health care. She was on metformin 7 years ago, but no longer was diabetic and she has been on a dialysis diet for the last 2 years or so. But in the last two months, she has lost weight and she has also lost strength. She started to pass out 5 minutes to 25 minute durations this past few days and brought her to the hospital for evaluation. She has been having lot of pain in her lower back as well as her legs. She has been on Xarelto for her atrial fibrillation, but that was stopped when she was brought to the hospital this time. She was also noted to have some blood in her diaper with stool and this is also being investigated and there was a question and in the ER, she had leukocytosis, lactic acidosis, and UA is again consistent with urosepsis, and she is now being admitted for septic shock and a routine CT was performed to make sure there was no bleeding. She also has end-stage renal disease. PREVIOUS MEDICAL HISTORY: 1. End-stage renal disease on peritoneal dialysis. 2. Last mobile with a walker and reasonable quality of life was in May 2018 prior to previous hospitalization. 3. Hypertension. 4. Dyslipidemia. 5. Glaucoma. 6. Macular degeneration. 7. Prior history of diabetes and she has not been on any medications for 7 years. 8. Degenerative joint disease. 9. Duodenal ulcer. 10. Atrial fibrillation on Xarelto. PAST SURGICAL HISTORY: She had a pacemaker placed, cholecystectomy, dialysis fistula in the left upper extremity, and peritoneal dialysis catheter placement. SOCIAL HISTORY: She lives at home with her daughters and has no history of drug abuse or any alcoholism. FAMILY HISTORY: Her mother at 76 from a stroke. ALLERGIES: NO KNOWN DRUG ALLERGIES. MEDICATIONS: As noted per chart, but at home she is on Xarelto. REVIEW OF SYSTEMS: Unable to obtain. LABORATORY WORKUP: White count 19.4, hemoglobin 9.5, hematocrit 29.4, and platelet count 274. Her sodium 133, potassium 3.3, chloride 95, BUN 65, creatinine 8.14, lactic acid 0.7, AST 47, ALT 32, and alkaline phosphatase 147. Elevated troponin levels. UA is abnormal as noted and her CT of the head showed an acute stroke in the medial left parieto-occipital lobe in the distribution of left STRAINER TENDER. Stable area of encephalomalacia in the right frontal lobe with a stable remote lacunar infarct in the right basal ganglia, chronic small vessel ischemic changes and cerebral volume loss similar to previous exam. Remote infarct in the right cerebellar hemisphere. PHYSICAL EXAMINATION: VITAL SIGNS: Blood pressure was 107/49, pulse rate was 85, and temperature 98.4. She was on oxygen. GENERAL APPEARANCE: Very thin built lady, very frail, lying in bed. She has skin changes consistent with peripheral vascular disease in both lower extremities and she has severe swelling of her left knee. Her legs were tender to touch. Limited the evaluation could be performed. CHEST: Clear vesicular breathing. CARDIOVASCULAR: S1 and S2 heard. No murmurs. ABDOMEN: Soft. NEUROLOGIC: Higher intellectual functions. She tries to talk and she is oriented to self and able to follow one-step commands. Cranial nerves, pupils are reactive to light. No facial asymmetry noted. Tongue is midline and she has difficulty with hearing. Preserved extraocular movements. Motor examination, bulk is normal. She has a normal tone throughout and she has decreased hand glove cuffer on the right side. She has severe tenderness of the lower extremities, limiting the examination in lower extremities. She does move her left arm and she has a myoclonic tremor and she is unable to perform much of her strength exam in the right side. IMPRESSION AND PLAN: The patient with multiple medical issue. She was last normal at her baseline, but relatively reasonable quality of life before May, which was prior to her previous examination. She has multiple risk factors for stroke including hypertension, atrial fibrillation, end-stage renal disease, dyslipidemia, and prior history of stroke. She also has a strong family history of a stroke in her mother. She has not had good quality of life since May. Her examination shows bilateral tenderness in the lower extremities and skin changes similar to what we see in peripheral vascular disease. She has a swollen left knee. 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 She is able to move her left upper extremity, unable to move her right arm and she has acute subacute infarct in the medial left parietal occipital lobe in the left STRAINER TENDER distribution. RECOMMENDATIONS: I discussed the diagnosis and treatment plan and recommendations. I discussed the diagnosis with the patient's daughters. Explained to them that she has multiple medical issues. Then, her GI bleed is completely evaluated. I suggest she be on aspirin at 81 mg along with Xarelto for future stroke prophylaxis. I will follow up with you on the case. Job ID: [id number] MTDD
[2018-09-04] MEDS: Albumin 25% 25 GM/100 ML BOT IVPB SCH (22:28)
[2018-09-05] MEDS: Dextrose 5 %-0.45 % NaCl 1,000 ML IV SCH ×2 (01:22→14:26)
--- NOTE | 2018-09-05 03:13 | CON ---
DATE OF CONSULTATION: 09/04/2018 REASON FOR CONSULTATION: Hematochezia. CONSULTING PHYSICIAN: Whitney Yan MD HISTORY OF PRESENT ILLNESS: The patient is an 83-year-old female with past medical history of diabetes, hypertension, hyperlipidemia, glaucoma, DJD, atrial fibrillation on chronic anticoagulation with Xarelto, duodenal ulcer, end-stage renal disease, on peritoneal dialysis, and prior history of stroke, presenting with complaints of hematochezia and abdominal pain. Upon evaluation of the patient, she states that she had been having intermittent abdominal pain in roughly the periumbilical region, but had resolved shortly after admission to the ER. However, she has been exhibiting hematochezia, characterized as bright red blood per rectum, present only on the toilet paper that has been present for the last 2 to 3 days. This was characterized as minimal amounts of bright red blood on the toilet paper after a recent bout of constipation where the patient was having to strain in order to have a bowel movement. Over the weekend, she did have increased constipation characterized as having a solid bowel movement each day that required straining followed by loose bowel movements for the last 2 to 3 days, characterized as having approximately 1 to 2 semi-solid bowel movement during that time. On the initial admission to the ER, she was noted to have moderate leukocytosis, lactic acidosis, and hypotensive. She responded well to aggressive fluid management and was diagnosed with urinary tract infection based on urinalysis evaluation. While she has been in the ER, she has not had any further episodes of hematochezia nor has she had a bowel movement during that time. Currently, denies any nausea, vomiting, fevers, chills, abdominal pain, melena, hematemesis, dysphagia, or odynophagia. Of note, the patient was admitted to the hospital in May 2013 with complaints of melenic type stools. She subsequently underwent both EGD and colonoscopy, with EGD showing nonerosive gastritis and the colonoscopy showing blood throughout the colon, but no obvious source of bleeding. It also did show some significant diverticulosis within the transverse and sigmoid colons, but again no obvious source of bleeding. REVIEW OF SYSTEMS: A 10-category review of systems was obtained with all responses negative except for the pertinent positives as listed in HPI. PAST MEDICAL HISTORY: As per HPI. PAST SURGICAL HISTORY: Cholecystectomy, pacemaker placement, arteriovenous fistula in the left upper extremity, and peritoneal dialysis catheter placement. FAMILY HISTORY: Denies any GI malignancies. SOCIAL HISTORY: Denies any tobacco, alcohol, or illicit drug use. OUTPATIENT MEDICATIONS: Reviewed. ALLERGIES: NO KNOWN DRUG ALLERGIES. PHYSICAL EXAMINATION: VITAL SIGNS: Temperature 98, pulse 71, blood pressure 105/60, respiratory rate 25, saturating 100% on room air. GENERAL: The patient was lying in bed, in no acute distress. Alert and oriented x4. HEENT: Normocephalic, atraumatic. NECK: Supple. No JVD or scleral icterus noted. CARDIOVASCULAR: Regular rate and rhythm with no discernible murmurs, gallops, or rubs. RESPIRATORY: Clear to auscultation bilaterally with no discernible wheezes or rales. ABDOMEN: Normoactive bowel sounds. Soft, nondistended, mild tenderness to palpation in the periumbilical and right lower quadrant. EXTREMITIES: No cyanosis, clubbing, or edema. LABORATORY DATA: CBC with a white blood cell count of 19.4, hemoglobin 9.5, hematocrit 29.4, platelets 274. Chemistry with a sodium of 133, potassium 3.3, chloride 95, CO2 of 17, BUN 65, creatinine 8.14, glucose 175. AST 47, ALT 32, alkaline phosphatase 147, total bilirubin 0.3, albumin 2.2, INR 2.3. IMAGING DATA: CT of the head/brain obtained on September 03, 2018, showed acute to subacute infarction of the medial left parieto-occipital lobe in distribution of the left FOOTBALL SCOUT as well as a stable area of encephalomalacia in the right frontal lobe and stable remote lacunar infarction of the right basal ganglia. Also noted was a remote infarction in the right cerebellar hemisphere. ASSESSMENT AND PLAN: The patient is an 83-year-old female with past medical history of diabetes, hypertension, hyperlipidemia, glaucoma, degenerative joint disease, cerebrovascular accident, atrial fibrillation on Xarelto, duodenal ulcer, end- stage renal disease, on peritoneal dialysis, and prior episode of gastrointestinal bleed, presenting with hematochezia. Hematochezia: The patient is presenting with a recent history of hematochezia, characterized as bright red blood per rectum. There was noted to be only on the toilet paper, not mixed in with the stool or coating the stool in the toilet. When comparing her H and H with her baseline, she does have a mild decrease, but not significantly so from her prior hospitalization in May of 2018. Currently, denies any abdominal pain or further episodes of hematochezia since she has been here in the ER. However, she does have a concurrent diagnosis of urinary tract infection and a diagnosis of septic shock, characterized by the hypotension experienced with this particular diagnosis. At this time given a stable H and H, no further episodes of hematochezia with Xarelto still on board, the likelihood of an active gastrointestinal bleed is unlikely. However, she did have a history of what appeared to be a diverticular bleed in May of 2013 which could potentially lead itself toward her current clinical situation, but being the diverticular bleeds are arterial in nature is unlikely at this time. Given her current constellation of symptoms, the most likely reason for her hematochezia would be constipation resulting in external hemorrhoids and resultant hematochezia. Recommendations: 1. Would continue to trend H and H and transfuse as necessary to maintain an H and H of 7/21. 2. Continue to monitor clinically for signs of active gastrointestinal bleeding. 3. Would hold on anticoagulation for now in light of a possible gastrointestinal bleed 4. We will hold on any colonoscopic evaluation at this time given the low likelihood of a significant lower gastrointestinal bleed. 5. Would continue antibiotic therapy for treatment of the urinary tract infection/urosepsis. We will continue to follow. Please call with any questions. Job ID: [id number] MTDD
[2018-09-05 04:36] LABS: #Eosinphils 0.1 thou/uL (0.0-0.7); #Lymphocytes 1.1 thou/uL (1.20-3.40); #Monocytes 0.6 thou/uL (0.11-0.59); %Basophils 0.1 % (0.0-1.0); %Eosinophils 0.7 % (0.0-10.0); %Lymphocytes 9.3 % (21.0-51.0); %Monocytes 5.3 % (0.0-10.0); %Neutrophils 84.5 % (42.0-75.0); Hemoglobin 7.3 g/dL (12.0-16.0); Mean Corpuscular HGB CONC 32.9 g/dL (32.0-36.0); Mean Corpuscular Hemoglobin 33.3 pg (27.0-31.0); Mean Platelet Volume 6.7 fL (7.4-10.4); Platelet Count 167 thou/uL (130-400); White Blood Cell (WBC) Count 11.9 thou/uL (4.8-10.8)
[2018-09-05 04:51] LABS: Anion Gap 18 mmol/L (10-20); BUN (Urea Nitrogen) 50 mg/dL (9.8-20.1); Calc. Creatinine Clearance 7 mL/min (70-130); Carbon Dioxide 19 mmol/L (23-31); Chloride 98 mmol/L (98-107); Estimated GFR-MDRD 6; Glucose 127 mg/dL (83-110); Magnesium 1.4 mg/dL (1.6-2.6); Sodium 133 mmol/L (136-145)
[2018-09-05 05:00] LABS: Potassium 2.3 mmol/L (3.5-5.1)
[2018-09-05] MEDS ORDERED: Potassium Chloride 40 MEQ in Premix Bag 1 BAG IVPB SCH (05:30)
[2018-09-05] MEDS ORDERED: Epoetin (ESRD) 20,000 UNITS/ML SC SCH (09:00)
[2018-09-05] MEDS ORDERED: Epoetin (ESRD) 10,000 UNITS/ML VIAL SC SCH (09:00)
[2018-09-05] MEDS: Aspirin 300 MG Suppository PR SCH ×2 (09:18→15:44)
[2018-09-05] MEDS: Albumin 25% 25 GM/100 ML BOT IVPB SCH ×2 (09:18→20:34)
[2018-09-05] MEDS: Pantoprazole 40 MG VIAL IVP SCH ×2 (09:18→20:34)
[2018-09-05 10:02] LABS: Vancomycin, Random 11.7 ug/mL (See Comment)
--- NOTE | 2018-09-05 10:44 | PRG ---
DATE OF SERVICE: 09/05/2018 SUBJECTIVE: Ms. Lemons is an 83-year-old white female with ESRD and was admitted for hypotension, questionable sepsis. She is currently on IV Levophed-currently being tapered. In addition, we were consulted for maintenance peritoneal dialysis. She is doing better from dialysis point of view. Tolerating current peritoneal dialysis. We are using 1.5% PD solution to minimize ultrafiltration due to the low blood pressure. The patient had also been seen in this hospitalization by Dr. Christensen for her hematochezia. No other acute events noted last night. OBJECTIVE: VITAL SIGNS: Blood pressure is 92/53, heart rate 98, respiratory rate 27, and pulse ox 100%. GENERAL: Awake, lethargic, not in overt distress. SKIN: Adequate turgor. HEENT: Slightly pale conjunctivae. Anicteric sclerae. No neck mass. No carotid bruits. No JVD. CHEST: No deformities. LUNGS: Clear breath sounds. No wheezing. No crackles. HEART: Normal sinus rhythm. No murmurs, gallops, or rubs. ABDOMEN: Globular, soft, nontender. Positive for PD catheter. EXTREMITIES: No edema. MEDICATIONS: Medications of September 05, 2018 were reviewed. LABORATORY DATA: Laboratories of September 05, 2018, white count 11.9, hemoglobin 7.3, sodium 133, potassium 2.3, chloride 98, carbon dioxide 19, BUN 50, creatinine 6.45, glucose 120, magnesium is 1.4. The most recent BUN and creatinine are 50 and 6.45 respectively. ASSESSMENT AND PLAN: 1. Anemia - Epogen was started on this patient-10,000 units subcu every week p.r.n. blood transfusion. GI is following up the patient for anemia and hematochezia. 2. Hypotension/sepsis syndrome, on Levophed, also on empiric IV antibiotics. 3. End-stage renal disease, stable. We will continue current 1.5% PD solution. No changes will be made with the current peritoneal dialysis regimen. 4. Hypokalemia, p.r.n. potassium replacement. Job ID: [id number]
[2018-09-05] MEDS ORDERED: Sodium Chloride 0.9% 1,000 ML IV SCH (11:30)
--- NOTE | 2018-09-05 11:57 | HP ---
DATE OF HISTORY AND PHYSICAL: 09/05/2018 SUBJECTIVE: Ms. Lemons wants to go home. She is quite verbal about going home. She is extremely weak. She is almost off Levophed. OBJECTIVE: VITAL SIGNS: Blood pressure is 97/54, heart rate 88, oximetry is 100%, and respiratory rate 16. LUNGS: Clear. HEART: Regular rhythm. S1 and S2 are normal. ABDOMEN: Soft and nontender. EXTREMITIES: She is automatic bandsaw tender to palpation. LABORATORY DATA: Sodium 133, potassium 2.3, chloride 98, bicarb 19, BUN 50, creatinine 6.45, glucose 127. White count 11.9, hemoglobin 7.3, platelets 167,000, and MCV is 101. IMPRESSION: Failure to thrive. It is unclear at this point if this is secondary to acute on chronic depression or secondary to mood and activity changes secondary to recent thrombotic cerebrovascular accidents. An MRI has been ordered, but it will not change our management at this point. I have explained to the family that her lack of any movement, exercise, or nutritional intake will be ultimately her downfall and lead to her demise. I have suggested Dobhoff tube feedings if she wants to undertake this. I have also asked the family to ask her what she wants. She clearly says very quickly take me home. The family wants to explore this with her and I have explained to the family that it is appropriate for them to tell her they will honor her wishes. I suspect her hypotension is all secondary to dehydration brought on by ongoing peritoneal dialysis in the face of no p.o. intake. I gave her one more fluid bolus, which should correct her hypotension and we will move forward from there. Critical care time 30 minutes. Job ID: [id number] MTDD
--- NOTE | 2018-09-05 13:32 | CON ---
DATE OF CONSULTATION: 09/04/2018 HISTORY OF PRESENT ILLNESS: Ms. Lemons is an 83-year-old female admitted to the critical care unit. She has end-stage renal disease presumably from diabetes. When she developed renal failure, requirements for glucose control medications were eliminated according to her family. She had diabetes for at least 10 years prior to the development of her renal failure. She has basically presented with failure to thrive. Her family says that for the past 2 weeks that she has had a very poor p.o. intake. She has been continuing the peritoneal dialysis at night and then within the last week, she started passing out when she makes it to the toilet. She has had several episodes of syncope when she was in the vertical position and according to her family, she would wake up when she was supine again. She has had almost no p.o. intake for several days, but has, like I mentioned, continued with her peritoneal dialysis. She has been losing weight steadily for the past 2 weeks. According to family, she really never has recovered from a hospitalization in May. Her June 04 discharge summary stated that she was in the hospital for urinary tract infection and metabolic encephalopathy. She actually can converse and had her eyes open, listening to me talk to her daughters, but she let her daughters answer all of the questions. According to her daughters, for many days she did not take in even a 100 mL of liquids. They deny that she has had a fever at home. She had an episode of constipation. After she treated her constipation, she had diarrhea. She has been on anticoagulants. She has had no massive hematochezia reported by her family. PAST MEDICAL HISTORY: 1. Remarkable for atrial flutter, on amiodarone and full-dose Xarelto. 2. History of lipid disorder. 3. History of glaucoma. The family denies that she has a history of ever having hypertension. 4. History of macular degeneration. 5. History of ulcer disease in the past. 6. History of cholecystectomy. 7. History of pacemaker. 8. History of vascular access procedures. 9. History of peritoneal dialysis catheter placement. SOCIAL HISTORY: She is a nonsmoker, nondrinker. FAMILY HISTORY: Negative for vascular disease or lung disease in her early age. ALLERGIES: SHE REPORTS NO DRUG ALLERGIES. MEDICATIONS: Have been reviewed. REVIEW OF SYSTEMS: 10 point review of systems completed, essentially otherwise unremarkable. She has had no hematochezia, although there were some blood streaks on her pull-up. She had no gross hematuria. Is she basically aneuric according to the family. She has not coughed up any blood. She denies at this time having pain anywhere and otherwise review of systems is negative. PHYSICAL EXAMINATION: GENERAL: Ms. Lemons is an 83-year-old female. VITAL SIGNS: Blood pressure 98/63 on Levophed, heart rate 71, respiratory rates in the 20s, oximetry is 100%. EYES: Pupils are equal. Sclerae are anicteric. NECK: Supple. No lymphadenopathy. LUNGS: Remarkable for clear breath sounds. HEART: Regular rhythm. There is grade 2/6 systolic murmur. ABDOMEN: Soft and nontender. EXTREMITIES: Her lower extremities are diffusely tender when palpating the muscles of her calves. Her family says this only started 2 days ago. LABORATORY DATA: White count 19.4, hemoglobin 9.5, platelets 274,000. Sodium 133, potassium 3.3, chloride 95, bicarb 17, BUN 65, creatinine 8.14. AST is 47, ALT is 32, protein is 5.5, albumin is 2.2. DIAGNOSTIC STUDIES: Echocardiogram done today shows a normal ejection fraction, left ventricular hypertrophy, diastolic dysfunction. She has some [id number] tricuspid regurgitation which would suggest either pulmonary hypertension or left heart dysfunction (diastolic). IMPRESSION: Failure to thrive going back several weeks. I suspect with continuing peritoneal dialysis in the phase of virtually no p.o. intake, she is severely intravascularly volume depleted at this point. Also, she is becoming severely malnourished from her lack of nutritional input for several weeks. I suspect for several weeks prior to that, her input was suboptimal. I met with the daughters for quite sometime answering all their questions. I agree with gentle hydration. I doubt she is septic. The etiology of her failure to thrive is unclear at this point. Obviously, an underlying malignancy hiding somewhere is a concern. Depression is a possibility. CT of the head was done in the emergency department showing a left parieto-occipital lobe infarct. I suppose the lot of her failure to thrive could be related to small vessel vascular disease in her central nervous system. She has obviously had multiple strokes in the past reviewing her CT. I suspect she will stabilize overnight. Dr. Steinberg has adjusted her peritoneal dialysate. She has a central line placed. Hopefully, she will be weaned off pressors overnight. Albumin would probably help. She has edematous lower extremities, which I suspect were related to low oncotic pressure. I tried to explain all of this to the family, daughters were very attentive and very appreciative of the care given. ADDENDUM: It would be helpful to get a culture of peritoneal dialysate to rule out a low-grade chronic peritonitis as a cause of her failure to thrive. This is a 70 minute consult, with greater than 50% of time spent on unit coordinating care. Job ID: [id number] [facility]
--- NOTE | 2018-09-05 13:54 | PDOC.PN ---
- Subjective Encounter Start Date: 09/05/18 Encounter Start Time: 13:52 Subjective: more awake today and reports that she is OK. -: denies any abd pain/no nausea.no chest pain/SOB - Objective Resuscitation Status - Order Detail: 09/03/18 19:36 Resuscitation Status Routine Resuscitation Status: DNAR: NO Resuscitation Discussed with: discussed with 2 daughters at bedside. pt somnolent & can't tell MAR Reviewed: Yes Vital Signs & Weight: Vital Signs (12 hours) Temp Pulse BP Pulse Ox Pulse Ox 09/05/18 12:00 97.9 F 09/05/18 10:15 80 90/51 L 100 09/05/18 08:00 97.6 F 100 09/05/18 04:00 98.1 F Weight Weight 147 lb 11.355 oz Most Recent Monitor Data Heart Rate from ECG 84 NIBP 101/53 NIBP BP-Mean 69 Respiration from ECG 15 SpO2 99 I&O: 09/04/18 09/05/18 09/06/18 06:59 06:59 06:59 Intake Total 2404 70 Output Total 0 0 Balance 2404 70 Result Diagrams: 09/05/18 04:05 09/05/18 04:05 Additional Labs: Microbiology 09/03/18 17:26 Venous blood - Right Foot Blood Culture - Preliminary Specimen has been received and culture in progress. No Growth to date. 09/03/18 17:26 Venous blood - Right Arm Blood Culture - Preliminary Specimen has been received and culture in progress. No Growth to date. 09/03/18 16:35 Urine Straight Catheter Urine Culture - Preliminary Citrobacter braakii Laboratory Tests 09/03/18 09/04/18 09/05/18 16:22 03:37 04:05 Hgb 10.0 L 9.5 L 7.3 L Phys Exam - Physical Examination Constitutional: NAD lethargic HEENT: PERRLA, moist MMs, sclera anicteric, oral pharynx no lesions Neck: no nodes, no JVD, supple, full ROM Respiratory: no wheezing, no rales, no rhonchi Cardiovascular: RRR, no significant murmur Gastrointestinal: soft, non-tender, no distention, positive bowel sounds Musculoskeletal: no edema, pulses present Neurological: moves all 4 limbs weak all over Psychiatric: normal affect Skin: no rash Dx/Plan (1) Septic shock Code(s): A41.9 - SEPSIS, UNSPECIFIED ORGANISM; R65.21 - SEVERE SEPSIS WITH SEPTIC SHOCK Status: Acute (2) UTI (urinary tract infection) Status: Acute (3) Acute CVA (cerebrovascular accident) Code(s): I63.9 - CEREBRAL INFARCTION, UNSPECIFIED Status: Acute (4) Hematochezia Code(s): K92.1 - MELENA Status: Acute Comment: Xarelto on hold. H/O diverticular bleed in 2012 (5) Demand ischemia Code(s): I24.8 - OTHER FORMS OF ACUTE ISCHEMIC HEART DISEASE Status: Acute (6) ESRD (end stage renal disease) on dialysis Code(s): N18.6 - END STAGE RENAL DISEASE; Z99.2 - DEPENDENCE ON RENAL DIALYSIS Status: Acute (7) DM2 (diabetes mellitus, type 2) Status: Chronic Qualifiers: Diabetes mellitus intermediate insulin use: without nut processing supervisor use Diabetes mellitus complication status: with kidney complications Diabetes mellitus complication detail: with chronic kidney disease Chronic kidney disease stage : on chronic dialysis Qualified Code(s): E11.22 - Type 2 diabetes mellitus with diabetic chronic kidney disease; N18.6 - End stage renal disease; N18.6 - End stage renal disease; N18.6 - End stage renal disease; N18.6 - End stage renal disease; Z99.2 - Dependence on renal dialysis; Z99.2 - Dependence on renal dialysis; Z99.2 - Dependence on renal dialysis; Z99.2 - Dependence on renal dialysis Comment: accuchecks at goal. (8) Hypokalemia Code(s): E87.6 - HYPOKALEMIA Status: Resolved Comment: Repleted. (9) Paroxysmal atrial fibrillation Code(s): I48.0 - PAROXYSMAL ATRIAL FIBRILLATION Status: Chronic Comment: xarleto put on hold for now w possible GIB - Plan continue antibiotics, PT/OT, DVT proph w/SCDs BP better. levophed being titrated off.cont Abx for UTI.Citrobacter in Cx -: ASA per rectum for Ac CVA.poor prognosis. -: xarelto on hold d/t concerns for GIB.H/H lower today.cont PPI/ -: follow GI recs -: PD daily. replace and recheck potassium,Magnesium * .poor prognosis. * ECHO shows severe TR as well as Diastolic dysFx. * DNR Review of Systems - Review of Systems Constitutional: weakness, malaise - Medications/Allergies Allergies/Adverse Reactions: Allergies Allergy/AdvReac Type Severity Reaction Status Date / Time No Known Drug Allergies Allergy Unknown Verified 06/11/13 22:26 Medications: Current Medications Acetaminophen (Tylenol) 650 mg PO Q4H PRN PRN Reason: Headache/Fever/Mild Pain (1-3) Albumin Human (Albumin 25%) 25 gm IVPB 1000,2200 [facility] Stop: 09/06/18 10:01 Last Admin: 09/05/18 09:18 Dose: 25 gm Aspirin (Aspirin) 300 mg ME DAILY [facility] Last Admin: 09/05/18 09:18 Dose: 300 mg Benzonatate (Tessalon) 100 mg PO Q6H PRN PRN Reason: Cough Bisacodyl (Dulcolax) 10 mg PO DAILYPRN PRN PRN Reason: Constipation Calcium Carbonate (Tums) 1,000 mg PO Q4H PRN PRN Reason: Heartburn or Indigestion Clonidine (Catapres) 0.1 mg PO Q4H PRN PRN Reason: SBP > 160____ Epoetin Leo (Procrit) 10,000 units SC Q7DAYS [facility] Last Admin: 09/05/18 10:53 Dose: 10,000 units Guaifenesin (Robitussin Sf) 200 mg PO Q4H PRN PRN Reason: Cough Hydralazine HCl (Apresoline) 10 mg SLOW IVP Q4H PRN PRN Reason: SBP > 180 and HR < 70 Ceftriaxone Sodium 2 gm/ (Sodium Chloride) 100 mls @ 200 mls/hr IVPB Q24HR [facility] Last Admin: 09/04/18 16:51 Dose: 100 mls Dextrose/Sodium Chloride (D5 1/2 Ns) 1,000 mls @ 75 mls/hr IV .[id number] [facility] Last Admin: 09/05/18 01:22 Dose: 1,000 mls Norepinephrine Bitartrate (Levophed) 250 mls @ 0 mls/hr IVPB INF [facility]; Protocol Last Admin: 09/04/18 21:52 Dose: 250 mls Miscellaneous Medication (Pharmacy To Dose) 1 each IVPB PRN PRN PRN Reason: Pharmacy to dose Nitroglycerin (Nitrostat) 0.4 mg SL Q5MIN PRN PRN Reason: Chest Pain Hold Vancomycin For (Level >20) 0 each FS .IF LEVEL >20 ERLIN Ondansetron HCl (Zofran) 4 mg IVP Q6H PRN PRN Reason: Nausea/Vomiting Pantoprazole Sodium (Protonix) 40 mg IVP Q12HR [facility] Last Admin: 09/05/18 09:18 Dose: 40 mg Senna/Docusate Sodium (Senokot S) 2 tab PO BID PRN PRN Reason: Constipation Sodium Chloride (Flush - Normal Saline) 10 ml IV Q12HR [facility] Last Admin: 09/05/18 09:20 Dose: 10 ml Sodium Chloride (Flush - Normal Saline) 10 ml IVF Q12HR [facility] Sodium Chloride (Flush - Normal Saline) 10 ml IVF PRN PRN PRN Reason: Saline Flush Vancomycin HCl (First Vancomycin) 125 mg PO QID ERLIN
--- NOTE | 2018-09-05 14:49 | CON ---
DATE OF CONSULTATION: 09/05/2018 REASON FOR CONSULTATION: Possible sepsis. HISTORY OF PRESENT ILLNESS: An 83-year-old, who has a history of type 2 diabetes, end-stage renal disease with peritoneal dialysis, she is on amiodarone and Xarelto and developed change in mental status with profuse diarrhea, volume depletion, and decreased oral intake. In May, she had been in the hospital and had been diagnosed with urinary tract infection and metabolic encephalopathy. At that time, she was evaluated by Cardiology and Nephrology and her Coumadin was changed to Xarelto. She was discharged on Mag oxide, folic acid, tramadol, Xarelto, ciprofloxacin, and amiodarone. Of interest, her urine culture and blood cultures were old, no growth at 48 hours. Urinalysis with greater than 50 wbc's. There was some reported back pain and some blood in the stool in the diaper according to family members. Initial evaluation demonstrated a BP 104/53 with systolic blood pressure as low as lower 80s, heart rate ranging from 60 to 79, and she has remained afebrile throughout. She appeared pale and lethargic and has had a hard time following commands. She was obtunded, would wake up briefly, but fall asleep immediately. Mucous membranes were dry. Pupils are equally reactive. Neck was supple. Lungs were symmetric air entry. Heart exam showed regular rate and rhythm. Abdomen was not distended, but was diffusely tender to palpation. There was a PD catheter in place. Initial lab findings included white cell count 16.9, hemoglobin 10, and platelets 241 with a predominance of mature neutrophils. Sodium 130, creatinine 9.42, potassium 2.9, carbon dioxide 15, calcium 8.9, AST 35, ALT 27, and alkaline phosphatase 159. Troponin 0.657. Albumin 2.5. Urinalysis greater than 50 wbc's. Currently, Ms. Lemons is in the unit. She knows her name, but that is about. She is more alert, establishes eye contact, but has very poor recollection of events. She did not know where she was. She continues to have perfuse stooling with liquid stool. PAST MEDICAL HISTORY: End-stage renal disease secondary to type 2 diabetes mellitus on peritoneal dialysis, hypertension, dyslipidemia, macular degeneration, duodenal ulcer, and AFib/flutter on Xarelto. PAST SURGICAL HISTORY: Includes cholecystectomy, pacemaker placement, and dialysis PD placement. She has also an AV fistula in left upper extremity that is not in use at this time. SOCIAL HISTORY: Lives at home. Never smoker. FAMILY HISTORY: Noncontributory. ALLERGIES: NONE. CURRENT MEDICATIONS: We have p.r.n. medications. She also has; 1. Albumin b.i.d. 2. Ceftriaxone. 3. Guaifenesin. PHYSICAL EXAMINATION: VITAL SIGNS: T-max 98.6, blood pressure 101/53, pulse 84, respirations 15, and O2 saturation 99%. SKIN: Have areas of stage 2 in the presacral region, very faint pink erythema noted, and areas of excoriation in the back region as well. She has a triple- lumen catheter in the subclavian position, right side triple-lumen catheter. She does not have urine output to speak off just very minimal and she does not have a Humphreys catheter inserted. HEENT: The patient has no lymphadenopathy. Ocular movements are conjugate. Sclerae white. Pupils are equal. Oral cavity is moist. Few teeth in place with quite a bit of decay, but expected for age. LUNGS: Symmetric clear breath sounds. HEART: S1 and S2. Regular rate. No murmurs. ABDOMEN: Soft with diffuse tenderness, which is [id number]. No bladder distention. EXTREMITIES: No joint inflammatory activity. She is able to move extremities on command. Pulses are 1+ in dorsalis pedis. Plantar responses are flexor. No clonus. NEUROLOGIC: She is awake, knows her name, but that is about it in terms of orientation. Recollection is very limited. LABORATORY DATA: Followup lab data; white cell count down to 11.9, hemoglobin 7.3, platelets 167, and 84% neutrophils. Sodium 133, potassium 2.3, creatinine 6.45 , AST 47, ALT 32, and albumin 2.2. This patient has C. diff, which was positive with pending PCR. Two sets of blood culture, no growth thus for. She has Citrobacter braakii, which is broadly susceptible, quantitation was 75,000 to 100,000. IMAGING STUDIES: Include a chest x-ray with interval placement of right subclavian central venous catheter. No pleural effusions. Linear atelectasis. There is a brain CT completed, which demonstrated acute subacute infarction medial left parietal occipital lobe in the distribution of left posterior cerebral artery. ASSESSMENT: 1. ESRD secondary to type 2 diabetes. 2. Peritoneal dialysis. 3. Recent admission with change in mental status with a diagnosis of urinary tract infection, although nothing that has been confirmed based on culture results. 4. Clostridium difficile colitis is very likely in view of the clinical laboratory findings. We are just waiting on the stool Clostridium difficile toxin PCR. 5. Acute/subacute cerebrovascular accident. DISCUSSION: Most likely scenario is recent subacute CVA, which led to the original presentation and I believe in May. At that time, I do not believe she has a true invasive UTI. She probably has just a chronic low volume cystitis associated with her end-stage renal disease. Does not merit the treatment at this point. She did receive Cipro nonetheless and now she has developed C. diff, which has led to the current admission with volume depletion. We will start oral vancomycin. Discontinue IV Rocephin. She is going to have sample of her PD fluid submitted for testing to make sure she does not have an additional inflammatory process in the peritoneal compartment. Job ID: [id number] MTDD
--- NOTE | 2018-09-05 14:52 | PRG ---
DATE OF SERVICE: 09/05/2018 CHIEF COMPLAINT: Acute stroke. INTERVAL HISTORY: The patient is still having right-sided weakness, but she is more alert today and the patient's family was in the room during this Telemedicine visit. LABORATORY DATA: Her lab workup shows hemoglobin of 7.3, hematocrit 22.3, white count 11.9, and platelets 167. Chemistry sodium 133, potassium 2.3, and bicarb 19, BUN 50, creatinine 6.45, and her imaging, we are still pending her MRI of the brain, which will be done hopefully tomorrow. PHYSICAL EXAMINATION: VITAL SIGNS: Blood pressure was 99/68, pulse is 96, and her temperature was 97.6. GENERAL APPEARANCE: Thin built, very frail lady, who is in bed. NEUROLOGIC: Higher intellectual functions. She is not sure where we are, but she knows that [facility] is in [place], [place]. She is oriented to time and person. CRANIAL NERVE EXAMINATION: Right facial droop, and strength, she has weakness in the handgrip on the right arm. Right upper extremity strength is 2 in the extensors and 3 in the flexors, and she is able to move both toes. Left upper extremity strength was 4/5 in extensors and 5 on flexors. She still has pain during movement of her leg. 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 She is currently more awake compared to yesterday, likely due to improvement in her urosepsis. She still has GI bleed, which is currently being investigated and has anemia. I discussed with the daughter about her condition and once her medical factors are corrected including correction of anemia, she might do better over the next week. TREATMENT PLAN: Continue present medications. Consider aspirin when she is more stable medically and please complete her MRI and call Neurology, if further assistance is needed. Job ID: [id number]
[2018-09-05] MEDS: Vancomycin HCl 25 MG/ML Oral PO SCH ×2 (16:49→20:33)
--- NOTE | 2018-09-05 19:04 | PRG ---
DATE OF SERVICE: 09/05/2018 REASON FOR CONSULTATION: Hematochezia. SUBJECTIVE: The patient was transferred to the ICU for further evaluation of probable urosepsis and with continued diarrhea, infectious stool studies were sent that were positive for Clostridium difficile. Her urine culture was also positive for Citrobacter braakii. As such, she was placed on appropriate antibiotic therapy for both C diff and the urinary pathogen. Today, she states that she is feeling somewhat better, although was having some increased lower back pain as related to her positioning in bed and wanted to sit up. She does continue to have mild nausea, but no actual vomiting. Denies any fevers, chills, abdominal pain, dysphagia, odynophagia, melena, or hematemesis. She has not had any further bouts of hematochezia since admission to the hospital. OBJECTIVE: VITAL SIGNS: Temperature 98, pulse 83, blood pressure 116/71, respiratory rate 22, saturating 100% on room air. GENERAL: The patient was lying in bed, in no acute distress. Alert and oriented x4. CARDIOVASCULAR: Regular rate and rhythm. RESPIRATORY: Clear to auscultation bilaterally. ABDOMEN: Normoactive bowel sounds. Soft, nondistended, mild tenderness to palpation in the periumbilical and right lower quadrant. EXTREMITIES: No cyanosis, clubbing, or edema. LABORATORY DATA: CBC with a white blood cell count of 11.9, hemoglobin 7.3, hematocrit 22.3, platelets 167. Chemistry with a sodium of 133, potassium 2.3, chloride 98, CO2 of 19, BUN 50, creatinine 6.45, glucose 127. Infectious stool studies were positive for Clostridium difficile. IMAGING DATA: No current GI imaging is available for review. ASSESSMENT AND PLAN: The patient is an 83-year-old female with past medical history of diabetes; hypertension; hyperlipidemia; glaucoma; degenerative joint disease; cerebrovascular accident; atrial fibrillation, on Xarelto; duodenal ulcer; and end-stage renal disease, on peritoneal dialysis; presenting with complaints of hematochezia and now with diagnosis of Clostridium difficile. Hematochezia: The patient is presenting with a recent history of hematochezia, characterized as bright red blood per rectum that was present primarily on the toilet paper, not mixed in or coating with the stool, making the likelihood of a hemorrhoidal bleed more likely. Since admission to the hospital, she has not had any further episodes of hematochezia, although she has been noted to have a slight drop in her hemoglobin and hematocrit. At this time, it is unclear if this was due to be hemodilutional, given the increased IV fluids administered as part of treatment for urosepsis or if this is related to continued gastrointestinal bleeding. She has not had any overt evidence of gastrointestinal bleeding characterized as hematemesis, melena, or hematochezia. Recommendations: 1. We would continue to trend hemoglobin and hematocrit and transfuse as necessary to maintain hemoglobin and hematocrit of 7/21. 2. Continue to monitor clinically for signs of active gastrointestinal bleeding. 3. We would continue to hold anticoagulation. 4. We would hold on any colonoscopic evaluation at this time, given the low likelihood of a significant lower gastrointestinal bleed as well as concurrent diagnosis of Clostridium difficile with increased risk of perforation with this diagnosis. 5. Continue appropriate antibiotic therapy for urinary tract infection/ urosepsis. Clostridium difficile colitis: The patient has had multiple hospitalizations within the last 6 to 12 months with a more recent hospitalization for urinary tract infection and placed on broad- spectrum antibiotics, now presenting with complaints of constipation up until earlier this week when she began having more liquid diarrhea. On admission, she was noted to have an elevated white blood cell count that when coupled with diarrhea like bowel movements is concerning for the presence of Clostridium difficile, which was then confirmed on infectious stool studies. She was then placed on oral vancomycin for treatment and is now on treatment day 1 for this condition. Recommendations: 1. We would continue oral vancomycin 4 times daily as part of treatment for Clostridium difficile colitis. 2. Can consider addition of probiotic as an adjunctive therapy. We will continue to follow. Please call with any questions. Job ID: [id number] [facility]
[2018-09-06] MEDS: Dextrose 5 %-0.45 % NaCl 1,000 ML IV SCH ×2 (04:00→21:23)
[2018-09-06 05:07] LABS: #Eosinphils 0.1 thou/uL (0.0-0.7); #Monocytes 0.4 thou/uL (0.11-0.59); #Neutrophils 7.7 thou/uL (1.40-6.50); %Eosinophils 1.2 % (0.0-10.0); %Lymphocytes 11.1 % (21.0-51.0); %Monocytes 4.7 % (0.0-10.0); %Neutrophils 82.9 % (42.0-75.0); Hemoglobin 6.8 g/dL (12.0-16.0); Mean Corpuscular HGB CONC 32.1 g/dL (32.0-36.0); Mean Corpuscular Hemoglobin 32.4 pg (27.0-31.0); Mean Platelet Volume 6.8 fL (7.4-10.4); Platelet Count 149 thou/uL (130-400); Red Blood Cell (RBC) Count 2.08 mill/uL (4.20-5.40); White Blood Cell (WBC) Count 9.2 thou/uL (4.8-10.8)
[2018-09-06 05:26] LABS: Anion Gap 17 mmol/L (10-20); BUN (Urea Nitrogen) 37 mg/dL (9.8-20.1); Calc. Creatinine Clearance 8 mL/min (70-130); Calcium 8.3 mg/dL (7.8-10.44); Carbon Dioxide 20 mmol/L (23-31); Chloride 100 mmol/L (98-107); Estimated GFR-MDRD 7; Glucose 130 mg/dL (83-110); Magnesium 1.6 mg/dL (1.6-2.6); Sodium 135 mmol/L (136-145)
[2018-09-06 05:30] LABS: Phosphorus 1.9 mg/dL (2.3-4.7)
[2018-09-06 05:31] LABS: Potassium 2.4 mmol/L (3.5-5.1)
[2018-09-06] MEDS ORDERED: Potassium Chloride 40 MEQ in Premix Bag 1 BAG IVPB SCH (07:45)
[2018-09-06] MEDS ORDERED: Potassium Phosphate 9 MMOL in Sodium Chloride 0.9% 100 ML IVPB SCH (08:15)
[2018-09-06] MEDS: Vancomycin HCl 25 MG/ML Oral PO SCH ×4 (09:04→21:23)
[2018-09-06] MEDS: Pantoprazole 40 MG VIAL IVP SCH ×2 (09:04→21:23)
[2018-09-06] MEDS: Aspirin 300 MG Suppository PR SCH (09:06)
--- NOTE | 2018-09-06 11:29 | PDOC.PN ---
- Subjective Encounter Start Date: 09/06/18 Encounter Start Time: 11:27 Subjective: feels better. denies any chest pain/SOB/abd pain -: daughter at bedsid eand care discussed in detail - Objective Resuscitation Status - Order Detail: 09/03/18 19:36 Resuscitation Status Routine Resuscitation Status: DNAR: NO Resuscitation Discussed with: discussed with 2 daughters at bedside. pt somnolent & can't tell MAR Reviewed: Yes Vital Signs & Weight: Vital Signs (12 hours) Temp Pulse Resp BP Pulse Ox 09/06/18 10:54 98.5 F 100 17 121/70 100 09/06/18 08:00 98.3 F 09/06/18 04:00 98.6 F 09/06/18 00:00 97.9 F Weight Weight 147 lb 11.355 oz Most Recent Monitor Data Heart Rate from ECG 81 NIBP 121/70 NIBP BP-Mean 87 Respiration from ECG 25 SpO2 100 I&O: 09/05/18 09/06/18 09/07/18 06:59 06:59 06:59 Intake Total 2404 2394 30 Output Total 0 0 0 Balance 2404 2394 30 Result Diagrams: 09/06/18 04:10 09/06/18 04:10 Additional Labs: Microbiology 09/05/18 10:00 Stool C. difficile GDH Antigen & Toxins - Final 09/05/18 10:00 Stool Clostridium difficile Toxin A&B PCR - Final 09/03/18 16:35 Urine Straight Catheter Urine Culture - Final Citrobacter braakii Gram Positive Cocci 09/05/18 08:20 Dialysate Fluid Culture Body Fluid Culture - Preliminary 09/03/18 17:26 Venous blood - Right Foot Blood Culture - Preliminary NO GROWTH AT 48 HOURS 09/03/18 17:26 Venous blood - Right Arm Blood Culture - Preliminary NO GROWTH AT 48 HOURS Laboratory Tests 09/03/18 09/03/18 09/04/18 16:22 16:22 03:37 Hgb 10.0 L Potassium 2.9 L* 3.3 L Phosphorus Magnesium 09/04/18 09/05/18 09/05/18 03:37 04:05 04:05 Hgb 9.5 L 7.3 L Potassium 2.3 L* Phosphorus Magnesium 09/06/18 09/06/18 09/06/18 04:10 04:10 04:10 Hgb 6.8 L Potassium 2.4 L* Phosphorus 1.9 L Magnesium 1.6 Phys Exam - Physical Examination Constitutional: NAD pale,weak and sick looking,but awake and alert HEENT: PERRLA, moist MMs, sclera anicteric, oral pharynx no lesions Neck: no nodes, no JVD, supple, full ROM Respiratory: no wheezing, no rales, no rhonchi Cardiovascular: RRR, no significant murmur Musculoskeletal: no edema, pulses present Left hemiparesis. Left arm more weak than left leg Psychiatric: normal affect, A&O x 3 Skin: no rash Dx/Plan (1) C. difficile colitis Status: Acute (2) Acute anemia Code(s): D64.9 - ANEMIA, UNSPECIFIED Status: Acute (3) Sepsis Code(s): A41.9 - SEPSIS, UNSPECIFIED ORGANISM Status: Acute (4) Acute CVA (cerebrovascular accident) Code(s): I63.9 - CEREBRAL INFARCTION, UNSPECIFIED Status: Acute (5) Hypokalemia Code(s): E87.6 - HYPOKALEMIA Status: Resolved Comment: Repleted. (6) Hematochezia Code(s): K92.1 - MELENA Status: Acute Comment: Kajal on hold. H/O diverticular bleed in 2012 (7) Demand ischemia Code(s): I24.8 - OTHER FORMS OF ACUTE ISCHEMIC HEART DISEASE Status: Acute (8) ESRD (end stage renal disease) on dialysis Code(s): N18.6 - END STAGE RENAL DISEASE; Z99.2 - DEPENDENCE ON RENAL DIALYSIS Status: Acute (9) DM2 (diabetes mellitus, type 2) Status: Chronic Qualifiers: Diabetes mellitus fci insulin use: without fci use Diabetes mellitus complication status: with kidney complications Diabetes mellitus complication detail: with chronic kidney disease Chronic kidney disease stage : on chronic dialysis Qualified Code(s): E11.22 - Type 2 diabetes mellitus with diabetic chronic kidney disease; N18.6 - End stage renal disease; N18.6 - End stage renal disease; N18.6 - End stage renal disease; N18.6 - End stage renal disease; Z99.2 - Dependence on renal dialysis; Z99.2 - Dependence on renal dialysis; Z99.2 - Dependence on renal dialysis; Z99.2 - Dependence on renal dialysis Comment: accuchecks at goal. (10) Paroxysmal atrial fibrillation Code(s): I48.0 - PAROXYSMAL ATRIAL FIBRILLATION Status: Chronic Comment: xarleto put on hold for now w possible GIB (11) UTI (urinary tract infection) Status: Ruled-out (12) Septic shock Code(s): A41.9 - SEPSIS, UNSPECIFIED ORGANISM; R65.21 - SEVERE SEPSIS WITH SEPTIC SHOCK Status: Resolved - Plan DVT proph w/SCDs transfuse 1 unit PRBC for Hb <7.no clear evidence of GIB -: Xarelto on hold but on ASA for Ac CVA. will reduce dose. -: May need colonoscopy eventually.sooner if H/H drops again.too high risk for -: any procedure for now. -: replace and recheck potassium and Phosphorus.on PD per nephro * .Sent PD fluid for Culture. * urine shows Citrobacter but likley colonization per ID * PO vancomycin for C diff * am labs * Poor prognosis Review of Systems - Review of Systems Constitutional: weakness, malaise ENT: negative: Ear Pain, Ear Discharge, Nose Pain, Nose Discharge, Nose Congestion, Mouth Pain, Mouth Swelling, Throat Pain, Throat Swelling, Other Cardiovascular: negative: chest pain, palpitations, orthopnea, paroxysmal nocturnal dyspnea, edema, light headedness, other Gastrointestinal: Diarrhea Genitourinary: negative: Dysuria, Frequency, Incontinence, Hematuria, Retention , Other Musculoskeletal: negative: Neck Pain, Shoulder Pain, Arm Pain, Back Pain, Hand Pain, Leg Pain, Foot Pain, Other Skin: negative: Rash, Lesions, Fabrizio, Bruising, Other Neurological: Weakness - Medications/Allergies Allergies/Adverse Reactions: Allergies Allergy/AdvReac Type Severity Reaction Status Date / Time No Known Drug Allergies Allergy Unknown Verified 06/11/13 22:26 Medications: Current Medications Acetaminophen (Tylenol) 650 mg PO Q4H PRN PRN Reason: Headache/Fever/Mild Pain (1-3) Aspirin (Aspirin) 300 mg MS DAILY [facility] Last Admin: 09/06/18 09:06 Dose: Not Given Benzonatate (Tessalon) 100 mg PO Q6H PRN PRN Reason: Cough Bisacodyl (Dulcolax) 10 mg PO DAILYPRN PRN PRN Reason: Constipation Calcium Carbonate (Tums) 1,000 mg PO Q4H PRN PRN Reason: Heartburn or Indigestion Clonidine (Catapres) 0.1 mg PO Q4H PRN PRN Reason: SBP > 160____ Epoetin Leo (Procrit) 10,000 units SC Q7DAYS [facility] Last Admin: 09/05/18 10:53 Dose: 10,000 units Guaifenesin (Robitussin Sf) 200 mg PO Q4H PRN PRN Reason: Cough Hydralazine HCl (Apresoline) 10 mg SLOW IVP Q4H PRN PRN Reason: SBP > 180 and HR < 70 Dextrose/Sodium Chloride (D5 1/2 Ns) 1,000 mls @ 75 mls/hr IV .[id number] [facility] Last Admin: 09/06/18 04:00 Dose: 1,000 mls Norepinephrine Bitartrate (Levophed) 250 mls @ 0 mls/hr IVPB INF [facility]; Protocol Last Admin: 09/04/18 21:52 Dose: 250 mls Potassium Chloride 40 meq/ (Device) 100 mls @ 25 mls/hr IVPB NOW [facility] Stop: 09/06/18 12:00 Last Admin: 09/06/18 09:05 Dose: 100 mls Miscellaneous Medication (Pharmacy To Dose) 1 each IVPB PRN PRN PRN Reason: Pharmacy to dose Nitroglycerin (Nitrostat) 0.4 mg SL Q5MIN PRN PRN Reason: Chest Pain Hold Vancomycin For (Level >20) 0 each FS .IF LEVEL >20 [facility] Ondansetron HCl (Zofran) 4 mg IVP Q6H PRN PRN Reason: Nausea/Vomiting Pantoprazole Sodium (Protonix) 40 mg IVP Q12HR [facility] Last Admin: 09/06/18 09:04 Dose: 40 mg Senna/Docusate Sodium (Senokot S) 2 tab PO BID PRN PRN Reason: Constipation Sodium Chloride (Flush - Normal Saline) 10 ml IV Q12HR [facility] Last Admin: 09/06/18 09:07 Dose: 10 ml Sodium Chloride (Flush - Normal Saline) 10 ml IVF Q12HR [facility] Last Admin: 09/06/18 09:08 Dose: 10 ml Sodium Chloride (Flush - Normal Saline) 10 ml IVF PRN PRN PRN Reason: Saline Flush Vancomycin HCl (First Vancomycin) 125 mg PO QID [facility] Last Admin: 09/06/18 09:04 Dose: 125 mg
--- NOTE | 2018-09-06 12:54 | PRG ---
DATE OF SERVICE: 09/06/2018 RENAL MEDICINE SUBJECTIVE: Ms. Lemons is an 83-year-old white female admitted for hypotension. We feel that she is volume depleted. Current IV fluids, being given normal saline. Currently receiving normal saline at 75 mL/h. She has also an episode of hematochezia. GI has evaluated this patient. She was noted to be anemic this morning. She is tolerating the current peritoneal dialysis. OBJECTIVE: VITAL SIGNS: Blood pressure is 110/67, heart rate 99, respiratory rate 22, and pulse ox 100%. GENERAL: Awake, comfortable, not in distress. SKIN: Adequate turgor. HEENT: Pale conjunctivae. Anicteric sclerae. NECK: No neck mass. No carotid bruits. No JVD. CHEST: No deformities. LUNGS: Decreased breath sounds. HEART: Normal sinus rhythm. No murmurs. No gallops. No rubs. ABDOMEN: Globular, soft, nontender. No masses. EXTREMITIES: No edema. No deformities. Positive for PD catheter in the abdomen. MEDICATIONS: Medications of September 06, 2018, was reviewed. LABORATORY DATA: Laboratories of September 06, 2018, white count 9.2, hemoglobin 6.8. Sodium 135, potassium 2.4, chloride 100, carbon dioxide 20, BUN 37, creatinine 5.56, glucose 130, calcium 8.3, and magnesium 1.6. ASSESSMENT AND PLAN: 1. Anemia. P.r.n. blood transfusion. Epogen started at 10,000 units subcu every week. 2. End-stage renal disease, stable, continuing current peritoneal dialysis. Using 1.5% peritoneal dialysis solution to minimize fluid removal. 3. Hematochezia - GI following. 4. Hypotension, much improved, off pressors. Continue gentle volume repletion. Job ID: [id number]
--- NOTE | 2018-09-06 14:22 | PRG ---
DATE OF SERVICE: 09/06/2018 SUBJECTIVE: Ms. Lemons is more interactive today. OBJECTIVE: VITAL SIGNS: She is afebrile. Heart rate is 99, blood pressure 110 /67. LUNGS: Clear. HEART: Regular rhythm. ABDOMEN: Soft. LABORATORY DATA: White count is 9.2, hemoglobin 6.8, and platelets 142,000. She will receive blood today. Sodium 135, potassium 3.4, chloride 100, bicarb 20, BUN 37, and creatinine 5.56. IMPRESSION: 1. End-stage renal disease on peritoneal dialysis. 2. Severe dehydration on presentation. 3. Anorexia? Related to depression. An MRI will really not help much with the care decisions that need to be made as I discussed with the daughter. She would have to go downstairs with an ICU nurse for an hour that it takes to go down and get the MRI done and come back. I do not think it will add enough to the care to justify doing the test in my opinion at this point. We will continue with supportive care. Her family is resigned to the fact that this may be the beginning of the end for. We will try to get her to drink some Renal formula, liquid nutritional supplements, but she is only taking sips and really taking very little yesterday. The organisms living in her urine, I suspect are bladder colonizers. Her C difficile toxin was detected. Her antigen was also positive, so she will be treated for C difficile. Her broad antimicrobial coverage should be discontinued in my opinion as there is no evidence of any other infection. Job ID: [id number] MTDD
--- NOTE | 2018-09-06 23:05 | PRG ---
DATE OF SERVICE: 09/06/2018 REASON FOR CONSULTATION: Hematochezia. SUBJECTIVE: The patient did well overnight with no acute events or problems. She is currently being treated for Clostridium difficile that was detected as the part of the infectious stool workup. While on this therapy, she is having anywhere between three and five liquid bowel movements a day per family and nursing staff. However, there has been no presence of any bright red blood per rectum/hematochezia since this admission with the only episode of hematochezia being earlier this week. She continues to have increased lower back pain and during the course of the interview was finding a difficult time maintaining certain position. She does continue to have mild nausea but no actual vomiting. Currently, denies any fevers, chills, abdominal pain, dysphagia, odynophagia, melena, or hematemesis. OBJECTIVE: VITAL SIGNS: Temperature 98.6, pulse 100, blood pressure 140/73, respiratory rate 24, and saturating 100% on room air. GENERAL: The patient is lying in bed, in mild distress related to positional changes. Alert and oriented x4. CARDIOVASCULAR: Regular rate and rhythm. RESPIRATORY: Clear to auscultation bilaterally. ABDOMEN: Normoactive bowel sounds. Soft, nondistended, mild tenderness to palpation in the periumbilical and right lower quadrant. EXTREMITIES: No cyanosis, clubbing, or edema. LABORATORY DATA: CBC with a white blood cell count of 9.2, hemoglobin 6.8, hematocrit 21, and platelets 149. Chemistry with a sodium of 135, potassium 2.4, chloride 100, CO2 of 20, BUN 37, creatinine 5.56, and glucose 130. IMAGING DATA: No current GI imaging is available for review. ASSESSMENT AND PLAN: The patient is an 83-year-old female with past medical history of diabetes, hypertension, hyperlipidemia, glaucoma, degenerative joint disease, cerebral vascular accident, atrial fibrillation on Xarelto, duodenal ulcer, and end-stage renal disease on peritoneal dialysis, presenting with complaints of hematochezia and Clostridium difficile colitis. Hematochezia: The patient is presenting with a recent history of hematochezia, characterized as bright red blood per rectum that was present primarily on the toilet paper not in the toilet or mixed with stool. This occurred shortly after the occurrence of harder to pass stools and has not since recurred approximately 4 to 5 days ago. She has not had any further episodes of hematochezia during this hospitalization, making the likelihood of a constipation induced external hemorrhoid bleed more likely, and most likely not contributing to her current anemia, and/or downtrending H and H. At this time, the anemia could be due to a possible hemodilutional nature given the increased IV fluids administered as part of the treatment for urosepsis or related to end-stage renal disease and this being an anemia of renal disease. RECOMMENDATIONS: 1. We will continue to trend H and H and transfuse as necessary to maintain an H and H of 03/06. 2. Continue to monitor clinically for signs of active GI bleeding. 3. Would continue to hold anticoagulation in light of possible bleeding source. 4. I would continue to hold on any colonoscopic evaluation at this time given the lower likelihood of a significant lower GI bleed contributing to her low H and H as well as a concurrent diagnosis of Clostridium difficile colitis, which carries an increased risk of perforation with endoscopic evaluation. Clostridium difficile colitis: The patient has had multiple hospitalizations within the last 6 to 12 months with the most recent hospitalization being for urinary tract infection, where she was placed on broad-spectrum antibiotics. More recently, she complained of constipation leading up to this hospitalization, but approximately 1 to 2 days prior to admission she began having more liquid diarrhea, now having approximately 3 to 5 liquid bowel movements per day, and infectious stool workup consistent with Clostridium difficile colitis. She has only been on oral vancomycin for approximately 24 to 48 hours, so may require little bit more time in order to see any appreciable response. Given her advanced age with this type of infection, careful monitoring will be needed. Would continue oral vancomycin 4 times daily as part of treatment for Clostridium difficile colitis. If the patient exhibits any evidence of end-organ dysfunction and/or hypotension, I would strongly consider increasing the oral vancomycin to either 250 mg 4 times daily or 500 mg 4 times daily in addition to IV metronidazole for better coverage. Could consider addition of a probiotic as an adjunctive therapy. We will continue to follow. Please call with any questions. Job ID: [id number]
[2018-09-07 05:34] LABS: #Eosinphils 0.1 thou/uL (0.0-0.7); #Monocytes 0.6 thou/uL (0.11-0.59); #Neutrophils 7.3 thou/uL (1.40-6.50); %Basophils 0.1 % (0.0-1.0); %Lymphocytes 11.3 % (21.0-51.0); %Monocytes 6.6 % (0.0-10.0); %Neutrophils 81.1 % (42.0-75.0); Hemoglobin 8.7 g/dL (12.0-16.0); Mean Corpuscular Hemoglobin 31.5 pg (27.0-31.0); Mean Corpuscular Volume 98.2 fL (78.0-98.0); Mean Platelet Volume 6.6 fL (7.4-10.4); Platelet Count 163 thou/uL (130-400); RBC Distribution Width 15.1 % (11.5-14.5); Red Blood Cell (RBC) Count 2.77 mill/uL (4.20-5.40)
[2018-09-07 05:50] LABS: Anion Gap 16 mmol/L (10-20); BUN (Urea Nitrogen) 31 mg/dL (9.8-20.1); Calc. Creatinine Clearance 9 mL/min (70-130); Calcium 8.1 mg/dL (7.8-10.44); Carbon Dioxide 20 mmol/L (23-31); Chloride 99 mmol/L (98-107); Estimated GFR-MDRD 8; Glucose 137 mg/dL (83-110); Magnesium 1.3 mg/dL (1.6-2.6); Sodium 132 mmol/L (136-145)
[2018-09-07 05:57] LABS: Potassium 2.7 mmol/L (3.5-5.1)
[2018-09-07] MEDS ORDERED: Potassium Chloride 20 MEQ in Premix Bag 1 BAG IVPB SCH ×2 (06:30→09:30)
[2018-09-07 09:32] LABS: Vancomycin, Random 9.8 ug/mL (See Comment)
[2018-09-07] MEDS: Pantoprazole 40 MG VIAL IVP SCH ×2 (09:40→21:23)
[2018-09-07] MEDS: Aspirin 81 mg Enteric Coated Tablet PO SCH (09:40)
--- NOTE | 2018-09-07 09:44 | PRG ---
DATE OF SERVICE: 09/07/2018 SUBJECTIVE: Ms. Lemons is an 83-year-old white female with ESRD-being followed up by the [facility] for her peritoneal dialysis. She was admitted for generalized malaise and decreased p.o. intake. During this hospitalization, she has developed hematochezia. GI has evaluated her. Holding on colonoscopy for the moment. She is not thriving well. Her appetite is still much decreased. She continues to be hypokalemic and currently receiving p.r.n. IV potassium. No other acute events noted last night. OBJECTIVE: VITAL SIGNS: Blood pressure is 124/74, heart rate 94, respiratory rate 21, pulse ox 100%. GENERAL: Noted to be awake, lethargic, not in distress. SKIN: Adequate turgor. HEENT: She has slightly pale conjunctivae. Anicteric sclerae. No neck mass. No carotid bruits. No JVD. CHEST: No deformities. LUNGS: Clear breath sounds. HEART: Normal sinus rhythm. No murmur. No gallops. No rubs. ABDOMEN: Globular, soft, nontender. No masses. Positive for PD catheter. EXTREMITIES: No edema. No deformities. MEDICATIONS: Medications of September 07, 2018 was reviewed. LABORATORY DATA: Laboratories of September 07, 2018; white count 9, hemoglobin 8.7. Sodium 132, potassium 2.7, chloride 99, carbon dioxide 20, BUN 31, creatinine 5.08, glucose 137, calcium 8.1, magnesium is 1.3. ASSESSMENT AND PLAN: 1. Hematochezia-p.r.n. blood transfusion. GI following. Holding colonoscopy for the moment. 2. End-stage renal disease, stable. Continue current peritoneal dialysis regimen. Using a 1.5% PD solution to minimize ultrafiltration due to the low blood pressure. 3. Hypokalemia, p.r.n. potassium replacement. 4. Diarrhea-currently on oral vancomycin at 125 mg p.o. q.i.d. 5. Overall prognosis remains guarded. The patient has decreased p.o. intake. We will discuss with the family again about long-term plans. Job ID: [id number]
[2018-09-07] MEDS ORDERED: Magnesium 2 GM/50 ML 2 GM in Premix Bag 1 BAG IVPB SCH (09:45)
[2018-09-07] MEDS: Vancomycin HCl 25 MG/ML Oral PO SCH ×3 (10:00→23:33)
[2018-09-07] MEDS: Dextrose 5 %-0.45 % NaCl 1,000 ML IV SCH (10:19)
[2018-09-07] MEDS ORDERED: Labetalol HCl 100 MG/20 ML VIAL ONE (10:22)
[2018-09-07] MEDS: Saccharomyces boulardii 250 MG CAP PO SCH ×2 (10:24→21:23)
--- NOTE | 2018-09-07 15:43 | PDOC.PN ---
- Subjective Encounter Start Date: 09/07/18 Encounter Start Time: 15:41 Subjective: feels poorly.minimal appetite -: some SOB.no abd pain or chest pain.family at bedside - Objective Resuscitation Status - Order Detail: 09/03/18 19:36 Resuscitation Status Routine Resuscitation Status: DNAR: NO Resuscitation Discussed with: discussed with 2 daughters at bedside. pt somnolent & can't tell MAR Reviewed: Yes Vital Signs & Weight: Vital Signs (12 hours) Temp Pulse Pulse Ox 09/07/18 12:00 98.8 F 09/07/18 10:53 76 09/07/18 08:00 98.7 F 100 09/07/18 07:00 98.7 F 09/07/18 04:00 98.8 F Weight Admit Weight 147 lb Weight 147 lb 11.355 oz Most Recent Monitor Data Heart Rate from ECG 94 NIBP 106/71 NIBP BP-Mean 82 Respiration from ECG 18 SpO2 100 I&O: 09/06/18 09/07/18 09/08/18 06:59 06:59 06:59 Intake Total 2394 2039 240 Output Total 0 0 Balance 2394 2039 240 Result Diagrams: 09/07/18 05:05 09/07/18 05:05 Additional Labs: Accuchecks 09/07/18 08:57 POC Glucose 123 H Microbiology 09/05/18 10:00 Stool C. difficile GDH Antigen & Toxins - Final 09/05/18 10:00 Stool Clostridium difficile Toxin A&B PCR - Final 09/03/18 16:35 Urine Straight Catheter Urine Culture - Final Citrobacter braakii Gram Positive Cocci 09/05/18 08:20 Dialysate Fluid Culture Body Fluid Culture - Preliminary 09/03/18 17:26 Venous blood - Right Foot Blood Culture - Preliminary NO GROWTH AT 48 HOURS 09/03/18 17:26 Venous blood - Right Arm Blood Culture - Preliminary NO GROWTH AT 48 HOURS Laboratory Tests 09/03/18 09/04/18 09/05/18 16:22 03:37 04:05 Hgb 10.0 L 9.5 L 7.3 L Phosphorus Magnesium 09/06/18 09/07/18 09/07/18 04:10 05:05 05:05 Hgb 6.8 L 8.7 L Phosphorus Magnesium 1.3 L 09/07/18 05:05 Hgb Phosphorus 2.0 L Magnesium Phys Exam - Physical Examination Constitutional: NAD weak,pale,lethargic HEENT: PERRLA, moist MMs, sclera anicteric, oral pharynx no lesions Neck: no nodes, no JVD, supple, full ROM Respiratory: no wheezing, clear to auscultation bilateral Cardiovascular: RRR, no significant murmur Gastrointestinal: soft, non-tender, no distention, positive bowel sounds Musculoskeletal: no edema, pulses present left hemiparesis Psychiatric: normal affect, A&O x 3 sleepy Skin: no rash Dx/Plan (1) C. difficile colitis Status: Acute Comment: vancomycin Po QID (2) Acute anemia Code(s): D64.9 - ANEMIA, UNSPECIFIED Status: Acute Comment: no GIB.S/P transfusion 1 unit PRBC 09/06.H/H stable (3) Sepsis Code(s): A41.9 - SEPSIS, UNSPECIFIED ORGANISM Status: Acute Comment: due to CDiff colitis (4) Acute CVA (cerebrovascular accident) Code(s): I63.9 - CEREBRAL INFARCTION, UNSPECIFIED Status: Acute Comment: on baby ASA. (5) Hypokalemia Code(s): E87.6 - HYPOKALEMIA Status: Resolved Comment: Repleted. (6) Hematochezia Code(s): K92.1 - MELENA Status: Acute Comment: Xarelto on hold. H/O diverticular bleed in 2012.No active bleed now. Monitor H/H/cont PPI (7) Demand ischemia Code(s): I24.8 - OTHER FORMS OF ACUTE ISCHEMIC HEART DISEASE Status: Acute (8) ESRD (end stage renal disease) on dialysis Code(s): N18.6 - END STAGE RENAL DISEASE; Z99.2 - DEPENDENCE ON RENAL DIALYSIS Status: Acute Comment: On PD. PD fluid sent for culture (9) DM2 (diabetes mellitus, type 2) Status: Chronic Qualifiers: Diabetes mellitus traffic control flagger insulin use: without traffic control flagger use Diabetes mellitus complication status: with kidney complications Diabetes mellitus complication detail: with chronic kidney disease Chronic kidney disease stage : on chronic dialysis Qualified Code(s): E11.22 - Type 2 diabetes mellitus with diabetic chronic kidney disease; N18.6 - End stage renal disease; N18.6 - End stage renal disease; N18.6 - End stage renal disease; N18.6 - End stage renal disease; Z99.2 - Dependence on renal dialysis; Z99.2 - Dependence on renal dialysis; Z99.2 - Dependence on renal dialysis; Z99.2 - Dependence on renal dialysis Comment: accuchecks at goal. (10) Paroxysmal atrial fibrillation Code(s): I48.0 - PAROXYSMAL ATRIAL FIBRILLATION Status: Chronic Comment: yana put on hold for now w possible GIB (11) UTI (urinary tract infection) Status: Ruled-out (12) Septic shock Code(s): A41.9 - SEPSIS, UNSPECIFIED ORGANISM; R65.21 - SEVERE SEPSIS WITH SEPTIC SHOCK Status: Resolved - Plan plan discussed w/ family, continue antibiotics, PT/OT, respiratory therapy, incentive spirometry, DVT proph w/SCDs Cont care as above and below. -: prognosis remains guarded. -: am labs.follow Cx.cont PO Vancomycin for now -: All other ABx discontinued as no clear evidence of infection.ID following -: replace Magnesium and recheck w potassium and Phos * . Review of Systems - Review of Systems Constitutional: weakness, malaise Other: not reliably obtained due to lethargy - Medications/Allergies Allergies/Adverse Reactions: Allergies Allergy/AdvReac Type Severity Reaction Status Date / Time No Known Drug Allergies Allergy Unknown Verified 06/11/13 22:26 Medications: Current Medications Acetaminophen (Tylenol) 650 mg PO Q4H PRN PRN Reason: Headache/Fever/Mild Pain (1-3) Aspirin (Ecotrin) 81 mg PO DAILY [facility] Last Admin: 09/07/18 09:40 Dose: 81 mg Benzonatate (Tessalon) 100 mg PO Q6H PRN PRN Reason: Cough Bisacodyl (Dulcolax) 10 mg PO DAILYPRN PRN PRN Reason: Constipation Calcium Carbonate (Tums) 1,000 mg PO Q4H PRN PRN Reason: Heartburn or Indigestion Clonidine (Catapres) 0.1 mg PO Q4H PRN PRN Reason: SBP > 160____ Epoetin Leo (Procrit) 10,000 units SC Q7DAYS [facility] Last Admin: 09/05/18 10:53 Dose: 10,000 units Guaifenesin (Robitussin Sf) 200 mg PO Q4H PRN PRN Reason: Cough Hydralazine HCl (Apresoline) 10 mg SLOW IVP Q4H PRN PRN Reason: SBP > 180 and HR < 70 Dextrose/Sodium Chloride (D5 1/2 Ns) 1,000 mls @ 75 mls/hr IV .[id number] [facility] Last Admin: 09/07/18 10:19 Dose: 1,000 mls Nitroglycerin (Nitrostat) 0.4 mg SL Q5MIN PRN PRN Reason: Chest Pain Ondansetron HCl (Zofran) 4 mg IVP Q6H PRN PRN Reason: Nausea/Vomiting Pantoprazole Sodium (Protonix) 40 mg IVP Q12HR [facility] Last Admin: 09/07/18 09:40 Dose: 40 mg Saccharomyces Boulardii (Florastor) 250 mg PO BID [facility] Last Admin: 09/07/18 10:24 Dose: 250 mg Senna/Docusate Sodium (Senokot S) 2 tab PO BID PRN PRN Reason: Constipation Sodium Chloride (Flush - Normal Saline) 10 ml IV Q12HR [facility] Last Admin: 09/07/18 09:40 Dose: 10 ml Sodium Chloride (Flush - Normal Saline) 10 ml IVF Q12HR [facility] Last Admin: 09/07/18 09:40 Dose: 10 ml Sodium Chloride (Flush - Normal Saline) 10 ml IVF PRN PRN PRN Reason: Saline Flush Vancomycin HCl (First Vancomycin) 125 mg PO QID [facility] Last Admin: 09/07/18 13:35 Dose: 125 mg
--- NOTE | 2018-09-07 17:47 | PRG ---
DATE OF SERVICE: 09/07/2018 SUBJECTIVE: Brina Lemons is clinically unchanged. She is more verbal than when she came in and answers questions when directed at her. OBJECTIVE: VITAL SIGNS: Heart rate is in the 90s, blood pressure 113/63, and respiratory rate is 18. LUNGS: Clear. HEART: Regular rhythm. S1 and S2 are normal. ABDOMEN: Soft and nontender. LABORATORY DATA: There are no new positive cultures. Blood cultures remain negative. White count 9, hemoglobin 8.7, platelets 163,000. Sodium 132, potassium 2.7, chloride 99, bicarb 20, BUN 31, and creatinine 5.08. IMPRESSION: Severe intravascular volume depletion secondary to anorexia and ongoing peritoneal dialysis at home. The family, according to the daughter, has decided the comfort care is the best option. I do believe they are planning to continue dialysis for now. C. difficile is being treated. She likely has bladder colonization. We will continue to follow with the daughter and answered all of her questions. Job ID: [id number]
--- NOTE | 2018-09-07 18:05 | PRG ---
DATE OF SERVICE: 09/07/2018 SUBJECTIVE: Ms. Lemons has slept most of the day today. She was up a lot last night. She has had no bowel movement today. No nausea or vomiting. She is eating very little. OBJECTIVE: VITAL SIGNS: Temperature is 99.1, blood pressure 112/63, pulse 93. GENERAL: She is in no acute distress. She is slow to answer, but she is oriented x3. She could not tell me the dowel inspector, however. LUNGS: Clear to auscultation bilaterally. HEART: Regular rate and rhythm without murmur. ABDOMEN: Mildly tender diffusely without guarding. Bowel sounds are present. EXTREMITIES: No lower extremity edema. LABORATORY DATA: Creatinine is 5.08. White blood cell count 9.0, hemoglobin is 8.7 today, she did receive 1 unit transfusion yesterday and her hemoglobin improved from 6.8 to 8.7. IMPRESSION: 1. Clostridium difficile colitis. Given the mildly altered mental status and severe hypoproteinemia with an albumin of 2.2. This indicates more of a severe and complicated presentation. She has had no bowel movement today; however, I am unclear if this is truly an improvement versus negative sign. She does have some tenderness, but does not appear toxic. I think it would be appropriate at this point to increase the vancomycin, add metronidazole. 2. Hematochezia prior to admission. No further bleeding over the last few days. Her hemoglobin is improved, status post 1 unit transfusion. Appears to have been stable for the last few days. The 6.8 hemoglobin from yesterday was likely diluted specimen. RECOMMENDATIONS: We will increase the vancomycin 500 mg four times daily and add metronidazole 500 mg IV three times daily. Job ID: [id number]
[2018-09-07] MEDS ORDERED: Vancomycin HCl 25 MG/ML Oral PO SCH (18:15)
[2018-09-07] MEDS: metroNIDAZOLE 500 MG in Premix Bag 1 BAG IVPB SCH (23:41)
[2018-09-08] MEDS: Vancomycin HCl 25 MG/ML Oral PO SCH ×5 (00:34→20:56)
[2018-09-08] MEDS ORDERED: Vancomycin HCl 25 MG/ML Oral PO SCH ×2 (01:00→09:00)
[2018-09-08] MEDS: metroNIDAZOLE 500 MG in Premix Bag 1 BAG IVPB SCH ×3 (06:08→20:57)
[2018-09-08 06:28] LABS: #Eosinphils 0.1 thou/uL (0.0-0.7); #Lymphocytes 0.9 thou/uL (1.20-3.40); #Monocytes 0.6 thou/uL (0.11-0.59); #Neutrophils 8.1 thou/uL (1.40-6.50); %Basophils 0.2 % (0.0-1.0); %Lymphocytes 9.2 % (21.0-51.0); %Monocytes 5.7 % (0.0-10.0); %Neutrophils 83.8 % (42.0-75.0); Hemoglobin 9.2 g/dL (12.0-16.0); Mean Corpuscular HGB CONC 33.1 g/dL (32.0-36.0); Mean Corpuscular Hemoglobin 32.7 pg (27.0-31.0); Mean Corpuscular Volume 98.7 fL (78.0-98.0); Mean Platelet Volume 6.4 fL (7.4-10.4); Platelet Count 146 thou/uL (130-400); White Blood Cell (WBC) Count 9.7 thou/uL (4.8-10.8)
[2018-09-08 06:51] LABS: Anion Gap 14 mmol/L (10-20); BUN (Urea Nitrogen) 25 mg/dL (9.8-20.1); Calc. Creatinine Clearance 9 mL/min (70-130); Calcium 8.1 mg/dL (7.8-10.44); Carbon Dioxide 21 mmol/L (23-31); Chloride 99 mmol/L (98-107); Estimated GFR-MDRD 9; Glucose 122 mg/dL (83-110); Magnesium 1.6 mg/dL (1.6-2.6); Sodium 131 mmol/L (136-145)
[2018-09-08 06:57] LABS: Phosphorus 1.8 mg/dL (2.3-4.7); Potassium 2.8 mmol/L (3.5-5.1)
[2018-09-08] MEDS ORDERED: Potassium Phosphate 9 MMOL in Sodium Chloride 0.9% 100 ML IVPB SCH (07:45)
[2018-09-08] MEDS: Aspirin 81 mg Enteric Coated Tablet PO SCH (08:26)
[2018-09-08] MEDS: Saccharomyces boulardii 250 MG CAP PO SCH ×2 (08:26→20:55)
[2018-09-08] MEDS: Pantoprazole 40 MG VIAL IVP SCH ×2 (08:27→20:55)
--- NOTE | 2018-09-08 09:42 | PRG ---
DATE OF SERVICE: 09/08/2018 SUBJECTIVE: Ms. Lemons is an 83-year-old white female, who has ESRD and being followed by [facility] for maintenance peritoneal dialysis. She seems to be tolerating the peritoneal dialysis. Please note, we are using 1.5% PD solution to minimize fluid removal with her. She still has significant decreased p.o. intake. She also remains persistently hypokalemic and we are currently replacing it. Unfortunately, this patient has decreased p.o. intake. I did discuss about the NG tube feeding or PEG tube with this patient if she will have no improvement in the next several days and the daughter declined. She also was empirically treated for a possible infection. No other complaints today. OBJECTIVE: VITAL SIGNS: Blood pressure is 100/65, heart rate 98, respiratory rate 17, temperature 97.2, and pulse ox 98%. GENERAL: The patient is awake, lethargic, but not in distress. SKIN: Adequate turgor. HEENT: She has slightly pale conjunctivae. Anicteric sclerae. No neck mass. No carotid bruits. No JVD. CHEST: No deformities. LUNGS: Decreased breath sounds. HEART: Normal sinus rhythm. No murmur. No gallops or rubs. ABDOMEN: Globular, soft, nontender. Positive for PD catheter. EXTREMITIES: No edema. No deformities. MEDICATIONS: Medications of September 08, 2018 was reviewed. LABORATORY DATA: Laboratories of September 08, 2018; white count 9.7, hemoglobin 9.2, sodium 131, potassium 2.8, chloride 99, carbon dioxide 21, BUN 25, creatinine 4.69, glucose 122, calcium 8.1, magnesium 1.6. Phosphorus is 1.8. ASSESSMENT AND PLAN: 1. End-stage renal disease - Continue current CCPD regimen. No changes will be made with the current peritoneal dialysis. 2. Hypokalemia, may be related from underlying diarrhea. We will be doing a Cortrosyn stimulation test with this patient today. 3. C. difficile colitis - On oral vancomycin. 4. Hematochezia, much improved. P.r.n. blood transfusion. Currently on maintenance Epogen. Job ID: [id number]
[2018-09-08] MEDS ORDERED: Cosyntropin 250 MCG VIAL SLOW IVP SCH (10:00)
[2018-09-08] MEDS: Potassium Chloride 20 MEQ in Premix Bag 1 BAG IVPB SCH ×2 (11:09→13:06)
[2018-09-08] MEDS: Acetaminophen 325 MG TAB PO PRN ×3 (13:04→20:57)
[2018-09-08] MEDS: Dextrose 5 %-0.45 % NaCl 1,000 ML IV SCH ×2 (13:06)
--- NOTE | 2018-09-08 16:08 | PDOC.PN ---
- Subjective Encounter Start Date: 09/08/18 Encounter Start Time: 16:07 Subjective: reports that she has pain in "faheem" and right hip -: uncomfortbale.very poor appetite -: daughter upset about her deteriorating condition - Objective Resuscitation Status - Order Detail: 09/03/18 19:36 Resuscitation Status Routine Resuscitation Status: DNAR: NO Resuscitation Discussed with: discussed with 2 daughters at bedside. pt somnolent & can't tell MAR Reviewed: Yes Vital Signs & Weight: Vital Signs (12 hours) Temp Pulse Resp BP Pulse Ox 09/08/18 13:23 97.6 F 92 18 118/62 97 09/08/18 08:00 98 09/08/18 07:58 97.2 F L 98 17 100/65 98 Weight Admit Weight 147 lb 11.355 oz Weight 147 lb 11.355 oz Most Recent Monitor Data Heart Rate from ECG 89 NIBP 121/78 NIBP BP-Mean 92 Respiration from ECG 18 SpO2 100 I&O: 09/07/18 09/08/18 09/09/18 06:59 06:59 06:59 Intake Total 9 1457 Output Total 0 Balance 2038 1457 Result Diagrams: 09/08/18 06:15 09/08/18 06:15 Additional Labs: Accuchecks 09/07/18 16:01 POC Glucose 100 Microbiology 09/05/18 10:00 Stool C. difficile GDH Antigen & Toxins - Final 09/05/18 10:00 Stool Clostridium difficile Toxin A&B PCR - Final 09/03/18 16:35 Urine Straight Catheter Urine Culture - Final Citrobacter braakii Gram Positive Cocci 09/05/18 08:20 Dialysate Fluid Culture Body Fluid Culture - Preliminary 09/03/18 17:26 Venous blood - Right Foot Blood Culture - Preliminary NO GROWTH AT 48 HOURS 09/03/18 17:26 Venous blood - Right Arm Blood Culture - Preliminary NO GROWTH AT 48 HOURS Laboratory Tests 09/03/18 09/04/18 09/05/18 16:22 03:37 04:05 WBC 16.9 H 19.4 H 11.9 H Hgb 10.0 L 9.5 L 7.3 L Phosphorus 09/06/18 09/07/18 09/08/18 04:10 05:05 06:15 WBC 9.2 9.0 9.7 Hgb 6.8 L 8.7 L 9.2 L Phosphorus 09/08/18 06:15 WBC Hgb Phosphorus 1.8 L Phys Exam - Physical Examination Constitutional: NAD pale,lethargic HEENT: PERRLA, moist MMs, sclera anicteric, oral pharynx no lesions Neck: no nodes, no JVD, supple, full ROM Respiratory: no wheezing, no rales, no rhonchi Cardiovascular: RRR, no significant murmur Gastrointestinal: soft, non-tender, no distention, positive bowel sounds Musculoskeletal: no edema, pulses present Neurological: non-focal, normal sensation, moves all 4 limbs Psychiatric: normal affect, A&O x 3 Skin: no rash Dx/Plan (1) C. difficile colitis Status: Acute Comment: vancomycin Po QID.increased vanco and added IV Flagyl (2) Acute anemia Code(s): D64.9 - ANEMIA, UNSPECIFIED Status: Acute Comment: no GIB.S/P transfusion 1 unit PRBC 09/06.H/H stable (3) Sepsis Code(s): A41.9 - SEPSIS, UNSPECIFIED ORGANISM Status: Acute Comment: due to CDiff colitis (4) Acute CVA (cerebrovascular accident) Code(s): I63.9 - CEREBRAL INFARCTION, UNSPECIFIED Status: Acute Comment: on baby ASA. (5) Hypokalemia Code(s): E87.6 - HYPOKALEMIA Status: Resolved Comment: Repleted. (6) Hematochezia Code(s): K92.1 - MELENA Status: Acute Comment: Xarelto on hold. H/O diverticular bleed in 2012.No active bleed now. Monitor H/H/cont PPI (7) Demand ischemia Code(s): I24.8 - OTHER FORMS OF ACUTE ISCHEMIC HEART DISEASE Status: Acute (8) ESRD (end stage renal disease) on dialysis Code(s): N18.6 - END STAGE RENAL DISEASE; Z99.2 - DEPENDENCE ON RENAL DIALYSIS Status: Acute Comment: On PD. PD fluid sent for culture (9) DM2 (diabetes mellitus, type 2) Status: Chronic Qualifiers: Diabetes mellitus watermelon inspector insulin use: without watermelon inspector use Diabetes mellitus complication status: with kidney complications Diabetes mellitus complication detail: with chronic kidney disease Chronic kidney disease stage : on chronic dialysis Qualified Code(s): E11.22 - Type 2 diabetes mellitus with diabetic chronic kidney disease; N18.6 - End stage renal disease; N18.6 - End stage renal disease; N18.6 - End stage renal disease; N18.6 - End stage renal disease; Z99.2 - Dependence on renal dialysis; Z99.2 - Dependence on renal dialysis; Z99.2 - Dependence on renal dialysis; Z99.2 - Dependence on renal dialysis Comment: accuchecks at goal. (10) Paroxysmal atrial fibrillation Code(s): I48.0 - PAROXYSMAL ATRIAL FIBRILLATION Status: Chronic Comment: xarleto put on hold for now w possible GIB (11) UTI (urinary tract infection) Status: Ruled-out (12) Septic shock Code(s): A41.9 - SEPSIS, UNSPECIFIED ORGANISM; R65.21 - SEVERE SEPSIS WITH SEPTIC SHOCK Status: Resolved - Plan plan discussed w/ family, continue antibiotics, PT/OT, out of bed/ambulate, DVT proph w/SCDs cont supportive care.family leaning towrards comfort care and hospice -: cont care as below for now. -: WBC back to NL.replace and recheck Potassium,mag,phos -: stable but fragile & guarded condition.xarelto on hold -: cont ASA for demand ischemia * . Review of Systems - Review of Systems Constitutional: weakness, malaise Cardiovascular: negative: chest pain, palpitations, orthopnea, paroxysmal nocturnal dyspnea, edema, light headedness, other Gastrointestinal: negative: Nausea, Vomiting, Abdominal Pain, Diarrhea, Constipation, Melena, Hematochezia, Other Genitourinary: negative: Dysuria, Frequency, Incontinence, Hematuria, Retention , Other Musculoskeletal: Leg Pain - Medications/Allergies Allergies/Adverse Reactions: Allergies Allergy/AdvReac Type Severity Reaction Status Date / Time Influenza Virus Vaccines Allergy Verified 09/08/18 02:43 pneumococcal vaccine Allergy Verified 09/08/18 02:43 Medications: Current Medications Acetaminophen (Tylenol) 650 mg PO Q4H PRN PRN Reason: Headache/Fever/Mild Pain (1-3) Last Admin: 09/08/18 13:04 Dose: 650 mg Aspirin (Ecotrin) 81 mg PO DAILY ERLIN Last Admin: 09/08/18 08:26 Dose: 81 mg Benzonatate (Tessalon) 100 mg PO Q6H PRN PRN Reason: Cough Bisacodyl (Dulcolax) 10 mg PO DAILYPRN PRN PRN Reason: Constipation Calcium Carbonate (Tums) 1,000 mg PO Q4H PRN PRN Reason: Heartburn or Indigestion Clonidine (Catapres) 0.1 mg PO Q4H PRN PRN Reason: SBP > 160____ Cosyntropin (Cortrosyn) 250 mcg SLOW IVP NOW [facility] Stop: 09/08/18 18:00 Last Admin: 09/08/18 11:17 Dose: 250 mcg Epoetin Leo (Procrit) 10,000 units SC Q7DAYS [facility] Last Admin: 09/05/18 10:53 Dose: 10,000 units Guaifenesin (Robitussin Sf) 200 mg PO Q4H PRN PRN Reason: Cough Hydralazine HCl (Apresoline) 10 mg SLOW IVP Q4H PRN PRN Reason: SBP > 180 and HR < 70 Dextrose/Sodium Chloride (D5 1/2 Ns) 1,000 mls @ 75 mls/hr IV .[id number] [facility] Last Admin: 09/08/18 13:06 Dose: Not Given Metronidazole 500 mg/ Device 100 mls @ 100 mls/hr IVPB Q8HR [facility] Last Admin: 09/08/18 13:05 Dose: 100 mls Nitroglycerin (Nitrostat) 0.4 mg SL Q5MIN PRN PRN Reason: Chest Pain Ondansetron HCl (Zofran) 4 mg IVP Q6H PRN PRN Reason: Nausea/Vomiting Pantoprazole Sodium (Protonix) 40 mg IVP Q12HR [facility] Last Admin: 09/08/18 08:27 Dose: 40 mg Saccharomyces Boulardii (Florastor) 250 mg PO BID [facility] Last Admin: 09/08/18 08:26 Dose: 250 mg Senna/Docusate Sodium (Senokot S) 2 tab PO BID PRN PRN Reason: Constipation Sodium Chloride (Flush - Normal Saline) 10 ml IV Q12HR [facility] Last Admin: 09/08/18 08:27 Dose: 10 ml Sodium Chloride (Flush - Normal Saline) 10 ml IVF Q12HR [facility] Last Admin: 09/08/18 09:28 Dose: Not Given Sodium Chloride (Flush - Normal Saline) 10 ml IVF PRN PRN PRN Reason: Saline Flush Vancomycin HCl (First Vancomycin) 500 mg PO QID ERLIN Last Admin: 09/08/18 13:04 Dose: 500 mg
--- NOTE | 2018-09-08 16:51 | PRG ---
DATE OF SERVICE: 09/08/2018 SUBJECTIVE: Ms. Lemons is still sleepy, but she is feeling a little better today. She had a couple of bowel movements last night. She had a small amount of chicken broth today, but is really taking minimal oral intake. OBJECTIVE: VITAL SIGNS: Temperature is 97.6, pulse 92, blood pressure 118/62. GENERAL: She is in no acute distress. She appears weak. LUNGS: Clear to auscultation bilaterally. HEART: Regular rate and rhythm. ABDOMEN: Soft, nontender, nondistended. Bowel sounds are present. EXTREMITIES: Trace pitting lower extremity edema. IMPRESSION: 1. Clostridium difficile colitis, appears to be clinically improving. Given the severe hypoalbuminemia and mild encephalopathy, I opted to increase her vancomycin dose and add metronidazole IV yesterday. She does appear to be clinically improving. 2. End-stage renal disease, on dialysis. RECOMMENDATIONS: 1. We will continue current antibiotic regimen. 2. Continue to encourage oral intake. Job ID: [id number]
[2018-09-09] MEDS: metroNIDAZOLE 500 MG in Premix Bag 1 BAG IVPB SCH ×3 (05:20→22:03)
[2018-09-09] MEDS: Dextrose 5 %-0.45 % NaCl 1,000 ML IV SCH (05:20)
[2018-09-09 06:05] LABS: #Lymphocytes 0.9 thou/uL (1.20-3.40); #Monocytes 0.6 thou/uL (0.11-0.59); #Neutrophils 8.9 thou/uL (1.40-6.50); %Basophils 0.3 % (0.0-1.0); %Eosinophils 0.5 % (0.0-10.0); %Lymphocytes 8.3 % (21.0-51.0); %Monocytes 5.4 % (0.0-10.0); %Neutrophils 85.6 % (42.0-75.0); Hemoglobin 8.7 g/dL (12.0-16.0); Mean Corpuscular Hemoglobin 31.7 pg (27.0-31.0); Mean Corpuscular Volume 98.9 fL (78.0-98.0); Platelet Count 152 thou/uL (130-400); Red Blood Cell (RBC) Count 2.76 mill/uL (4.20-5.40); White Blood Cell (WBC) Count 10.4 thou/uL (4.8-10.8)
[2018-09-09 06:22] LABS: Phosphorus 2.1 mg/dL (2.3-4.7)
[2018-09-09 06:23] LABS: Anion Gap 14 mmol/L (10-20); BUN (Urea Nitrogen) 23 mg/dL (9.8-20.1); Calc. Creatinine Clearance 10 mL/min (70-130); Calcium 7.9 mg/dL (7.8-10.44); Carbon Dioxide 20 mmol/L (23-31); Chloride 98 mmol/L (98-107); Estimated GFR-MDRD 9; Glucose 129 mg/dL (83-110); Magnesium 1.6 mg/dL (1.6-2.6); Potassium 3.1 mmol/L (3.5-5.1); Sodium 129 mmol/L (136-145)
[2018-09-09] MEDS: Pantoprazole 40 MG VIAL IVP SCH ×2 (08:45→22:02)
[2018-09-09] MEDS: Aspirin 81 mg Enteric Coated Tablet PO SCH (08:45)
[2018-09-09] MEDS: Saccharomyces boulardii 250 MG CAP PO SCH ×2 (08:45→22:02)
[2018-09-09] MEDS: Vancomycin HCl 25 MG/ML Oral PO SCH ×4 (08:46→22:03)
[2018-09-09] MEDS ORDERED: Potassium Chloride 40 MEQ in Premix Bag 1 BAG IVPB SCH (09:00)
--- NOTE | 2018-09-09 09:16 | PRG ---
DATE OF SERVICE: 09/09/2018 RENAL MEDICINE. SUBJECTIVE: Ms. Lemons is an 83-year-old white female with ESRD and admitted for failure to thrive and hypotension. BP is stable at the present time. However, she still has decreased p.o. intake. Family declines any PEG tube placement or NGT. They are considering hospice. She tolerated dialysis yesterday. Her p.o. intakes only about 20%. OBJECTIVE: VITAL SIGNS: Blood pressure 109/61, heart rate 96, respiratory rate 17, temperature 97.5, and pulse ox 95%. GENERAL: Awake, lethargic, not in distress. SKIN: Adequate turgor. HEENT: Slightly pale conjunctivae. Anicteric sclerae. No neck mass. No carotid bruits. No JVD. CHEST: No deformities. LUNGS: Clear breath sounds. No wheezing. No crackles. HEART: Normal sinus rhythm. No murmurs. No gallops. No rubs. ABDOMEN: Globular, soft, nontender. No masses. Positive for PD catheter. EXTREMITIES: No edema. No deformities. MEDICATIONS: Medications of September 09, 2018 reviewed. LABORATORY DATA: Laboratories of September 09, 2018; white count 10.4, hemoglobin 8.7, hematocrit 27.3. Sodium 129, potassium 3.1, chloride 98, carbon dioxide 20, BUN 23, creatinine 4.43, glucose 129, calcium 7.9, and magnesium 1.6. ASSESSMENT AND PLAN: 1. End-stage renal disease, stable. Continue current CCPD regimen using 1.5% PD solution. Tolerating said treatment. 2. Failure to thrive, decreased p.o. intake. The patient's family considering hospice care. 3. Mild hypokalemia. p.r.n. potassium replacement. Job ID: [id number]
[2018-09-09] MEDS ORDERED: Potassium Phosphate 9 MMOL in Sodium Chloride 0.9% 100 ML IVPB SCH (09:30)
[2018-09-09] MEDS: NS 0.9% w/ 20 MEQ KCL 1,000 ML/1,000 ML BAG IV SCH (11:01)
[2018-09-09] MEDS: Potassium Chloride 20 MEQ in Premix Bag 1 BAG IVPB SCH ×2 (11:05→13:19)
--- NOTE | 2018-09-09 15:38 | PDOC.PN ---
- Subjective Encounter Start Date: 09/09/18 Encounter Start Time: 15:36 Subjective: feels about the same. barley eating and very weak - Objective Resuscitation Status - Order Detail: 09/03/18 19:36 Resuscitation Status Routine Resuscitation Status: DNAR: NO Resuscitation Discussed with: discussed with 2 daughters at bedside. pt somnolent & can't tell MAR Reviewed: Yes Vital Signs & Weight: Vital Signs (12 hours) Temp Pulse Pulse Pulse Resp BP BP 09/09/18 13:38 87 87 103/55 L 94/52 L 09/09/18 07:47 09/09/18 07:28 97.5 F L 96 17 09/09/18 04:19 97.1 F L 84 16 BP Pulse Ox 09/09/18 13:38 09/09/18 07:47 95 09/09/18 07:28 109/61 95 09/09/18 04:19 106/60 100 Weight Admit Weight 147 lb 11.355 oz Weight 147 lb 11.355 oz Most Recent Monitor Data Heart Rate from ECG 89 NIBP 121/78 NIBP BP-Mean 92 Respiration from ECG 18 SpO2 100 I&O: 09/08/18 09/09/18 09/10/18 06:59 06:59 06:59 Intake Total 1457 1815 Output Total 1106 Balance 1457 709 Result Diagrams: 09/09/18 05:54 09/09/18 05:54 Additional Labs: Laboratory Tests 09/03/18 09/03/18 09/04/18 16:22 16:22 03:37 Hgb 10.0 L Sodium 130 L 133 L Phosphorus Magnesium 09/04/18 09/05/18 09/05/18 03:37 04:05 04:05 Hgb 9.5 L 7.3 L Sodium 133 L Phosphorus Magnesium 09/06/18 09/06/18 09/07/18 04:10 04:10 05:05 Hgb 6.8 L Sodium 135 L 132 L Phosphorus Magnesium 09/07/18 09/08/18 09/08/18 05:05 06:15 06:15 Hgb 8.7 L 9.2 L Sodium 131 L Phosphorus Magnesium 09/09/18 09/09/18 09/09/18 05:54 05:54 05:54 Hgb 8.7 L Sodium 129 L Phosphorus 2.1 L Magnesium 1.6 Phys Exam - Physical Examination Constitutional: NAD pale,weak,lethargic HEENT: moist MMs, sclera anicteric Neck: no nodes, no JVD, supple, full ROM Respiratory: no wheezing, no rales, no rhonchi Cardiovascular: RRR, no significant murmur Gastrointestinal: soft, non-tender, no distention, positive bowel sounds Musculoskeletal: no edema, pulses present Neurological: non-focal, normal sensation, moves all 4 limbs Psychiatric: normal affect, A&O x 3 Skin: no rash Dx/Plan (1) C. difficile colitis Status: Acute Comment: vancomycin Po QID.increased vanco and added IV Flagyl (2) Acute anemia Code(s): D64.9 - ANEMIA, UNSPECIFIED Status: Acute Comment: no GIB.S/P transfusion 1 unit PRBC 09/06.H/H stable (3) Sepsis Code(s): A41.9 - SEPSIS, UNSPECIFIED ORGANISM Status: Acute Comment: due to CDiff colitis (4) Acute CVA (cerebrovascular accident) Code(s): I63.9 - CEREBRAL INFARCTION, UNSPECIFIED Status: Acute Comment: on baby ASA. (5) Hypokalemia Code(s): E87.6 - HYPOKALEMIA Status: Resolved Comment: Repleted. (6) Hematochezia Code(s): K92.1 - MELENA Status: Acute Comment: Xarelto on hold. H/O diverticular bleed in 2012.No active bleed now. Monitor H/H/cont PPI (7) Demand ischemia Code(s): I24.8 - OTHER FORMS OF ACUTE ISCHEMIC HEART DISEASE Status: Acute (8) ESRD (end stage renal disease) on dialysis Code(s): N18.6 - END STAGE RENAL DISEASE; Z99.2 - DEPENDENCE ON RENAL DIALYSIS Status: Acute Comment: On PD. PD fluid sent for culture (9) DM2 (diabetes mellitus, type 2) Status: Chronic Qualifiers: Diabetes mellitus long goods drier insulin use: without mcfp use Diabetes mellitus complication status: with kidney complications Diabetes mellitus complication detail: with chronic kidney disease Chronic kidney disease stage : on chronic dialysis Qualified Code(s): E11.22 - Type 2 diabetes mellitus with diabetic chronic kidney disease; N18.6 - End stage renal disease; N18.6 - End stage renal disease; N18.6 - End stage renal disease; N18.6 - End stage renal disease; Z99.2 - Dependence on renal dialysis; Z99.2 - Dependence on renal dialysis; Z99.2 - Dependence on renal dialysis; Z99.2 - Dependence on renal dialysis Comment: accuchecks at goal. (10) Paroxysmal atrial fibrillation Code(s): I48.0 - PAROXYSMAL ATRIAL FIBRILLATION Status: Chronic Comment: quiqueo put on hold for now w possible GIB (11) UTI (urinary tract infection) Status: Ruled-out (12) Septic shock Code(s): A41.9 - SEPSIS, UNSPECIFIED ORGANISM; R65.21 - SEVERE SEPSIS WITH SEPTIC SHOCK Status: Resolved - Plan plan discussed w/ family, continue antibiotics, PT/OT, out of bed/ambulate, DVT proph w/SCDs cont PO Vanco and IV flagyl.slow improvement -: poor prognosis due to baseline decline over last few months -: monior lytes and replace prn -: PD .PD fluid Cx pending -: aspiration precautions * .PCT following for possible hospice involvement * am labs * ABx stopped Review of Systems - Review of Systems Constitutional: weakness, malaise. negative: fever, chills, sweats, other Cardiovascular: negative: chest pain, palpitations, orthopnea, paroxysmal nocturnal dyspnea, edema, light headedness, other Gastrointestinal: Nausea Neurological: negative: Weakness, Numbness, Incoordination, Change in Speech, Confusion, Seizures, Other - Medications/Allergies Allergies/Adverse Reactions: Allergies Allergy/AdvReac Type Severity Reaction Status Date / Time Influenza Virus Vaccines Allergy Verified 09/08/18 02:43 pneumococcal vaccine Allergy Verified 09/08/18 02:43 Medications: Current Medications Acetaminophen (Tylenol) 650 mg PO Q4H PRN PRN Reason: Headache/Fever/Mild Pain (1-3) Last Admin: 09/08/18 20:57 Dose: 650 mg Aspirin (Ecotrin) 81 mg PO DAILY ERLIN Last Admin: 09/09/18 08:45 Dose: 81 mg Atorvastatin Calcium (Lipitor) 20 mg PO HS ERLIN Benzonatate (Tessalon) 100 mg PO Q6H PRN PRN Reason: Cough Bisacodyl (Dulcolax) 10 mg PO DAILYPRN PRN PRN Reason: Constipation Calcium Carbonate (Tums) 1,000 mg PO Q4H PRN PRN Reason: Heartburn or Indigestion Clonidine (Catapres) 0.1 mg PO Q4H PRN PRN Reason: SBP > 160____ Epoetin Leo (Procrit) 10,000 units SC Q7DAYS [facility] Last Admin: 09/05/18 10:53 Dose: 10,000 units Guaifenesin (Robitussin Sf) 200 mg PO Q4H PRN PRN Reason: Cough Hydralazine HCl (Apresoline) 10 mg SLOW IVP Q4H PRN PRN Reason: SBP > 180 and HR < 70 Metronidazole 500 mg/ Device 100 mls @ 100 mls/hr IVPB Q8HR [facility] Last Admin: 09/09/18 13:17 Dose: 100 mls Potassium Chloride/Sodium Chloride (Ns 0.9% W/ 20 Meq Kcl) 1,000 ml in 1,000 mls @ 50 mls/hr IV .Q20H [facility] Last Admin: 09/09/18 11:01 Dose: 1,000 mls Nitroglycerin (Nitrostat) 0.4 mg SL Q5MIN PRN PRN Reason: Chest Pain Ondansetron HCl (Zofran) 4 mg IVP Q6H PRN PRN Reason: Nausea/Vomiting Pantoprazole Sodium (Protonix) 40 mg IVP Q12HR [facility] Last Admin: 09/09/18 08:45 Dose: 40 mg Saccharomyces Boulardii (Florastor) 250 mg PO BID [facility] Last Admin: 09/09/18 08:45 Dose: 250 mg Senna/Docusate Sodium (Senokot S) 2 tab PO BID PRN PRN Reason: Constipation Sodium Chloride (Flush - Normal Saline) 10 ml IV Q12HR [facility] Last Admin: 09/09/18 08:46 Dose: 10 ml Sodium Chloride (Flush - Normal Saline) 10 ml IVF Q12HR [facility] Last Admin: 09/09/18 08:49 Dose: Not Given Sodium Chloride (Flush - Normal Saline) 10 ml IVF PRN PRN PRN Reason: Saline Flush Last Admin: 09/08/18 20:56 Dose: 10 ml Vancomycin HCl (First Vancomycin) 500 mg PO QID [facility] Last Admin: 09/09/18 13:17 Dose: 500 mg
[2018-09-09] MEDS: Atorvastatin Calcium 20 MG TAB PO SCH (22:02)
[2018-09-09] MEDS: Acetaminophen 325 MG TAB PO PRN (22:27)
--- NOTE | 2018-09-09 23:43 | PRG ---
DATE OF SERVICE: 09/09/2018 SUBJECTIVE: Ms. Lemons remains sleepy much of the time. She did eat half a bowl of turkey and gravy this evening. She is having around 4 bowel movements per day. Still some diarrhea. OBJECTIVE: VITAL SIGNS: Temperature 98.1, pulse 86, blood pressure 93/54. GENERAL: She is in no acute distress. LUNGS: Clear to auscultation bilaterally. HEART: Regular rate and rhythm without murmur. ABDOMEN: Soft, nontender, nondistended. Bowel sounds are present. EXTREMITIES: No lower extremity edema. IMPRESSION: 1. Clostridium difficile colitis, appears to be clinically improving. 2. End-stage renal disease, on peritoneal dialysis. RECOMMENDATIONS: Continue vancomycin orally and metronidazole IV. Job ID: [id number]
[2018-09-10 05:37] LABS: #Basophils 0.1 thou/uL (0.0-0.2); #Eosinphils 0.1 thou/uL (0.0-0.7); #Lymphocytes 0.9 thou/uL (1.20-3.40); #Monocytes 0.6 thou/uL (0.11-0.59); #Neutrophils 7.7 thou/uL (1.40-6.50); %Basophils 0.6 % (0.0-1.0); %Eosinophils 0.7 % (0.0-10.0); %Lymphocytes 9.3 % (21.0-51.0); %Monocytes 6.4 % (0.0-10.0); Mean Corpuscular HGB CONC 32.8 g/dL (32.0-36.0); Mean Corpuscular Hemoglobin 32.9 pg (27.0-31.0); Mean Platelet Volume 6.7 fL (7.4-10.4); Platelet Count 161 thou/uL (130-400); RBC Distribution Width 14.9 % (11.5-14.5); Red Blood Cell (RBC) Count 2.74 mill/uL (4.20-5.40); White Blood Cell (WBC) Count 9.3 thou/uL (4.8-10.8)
[2018-09-10 05:54] LABS: Phosphorus 2.4 mg/dL (2.3-4.7)
[2018-09-10 05:55] LABS: Anion Gap 15 mmol/L (10-20); BUN (Urea Nitrogen) 23 mg/dL (9.8-20.1); Calc. Creatinine Clearance 9 mL/min (70-130); Calcium 8.1 mg/dL (7.8-10.44); Carbon Dioxide 20 mmol/L (23-31); Chloride 100 mmol/L (98-107); Estimated GFR-MDRD 9; Glucose 109 mg/dL (83-110); Magnesium 1.6 mg/dL (1.6-2.6); Potassium 3.8 mmol/L (3.5-5.1); Sodium 131 mmol/L (136-145)
[2018-09-10] MEDS: NS 0.9% w/ 20 MEQ KCL 1,000 ML/1,000 ML BAG IV SCH (06:29)
[2018-09-10] MEDS: metroNIDAZOLE 500 MG in Premix Bag 1 BAG IVPB SCH ×3 (06:29→20:57)
--- NOTE | 2018-09-10 10:14 | PRG ---
DATE OF SERVICE: 09/10/2018 RENAL MEDICINE SUBJECTIVE: Ms. Lemons is an 83-year-old white female, being followed by the [facility] for her maintenance peritoneal dialysis. She is currently on a 1.5% PD solution to minimize ultrafiltration. She came in hypotensive and was failing to thrive at home. She also was diagnosed with C. diff colitis. Diarrhea is slowly improving with vancomycin. Family is contemplating about considering hospice. They have not finalized their decision, but they feel that over the weekend, they will proceed with hospice. For the moment until they finalized their decision, we will place her on peritoneal dialysis. I did explain to them the consequences of discontinuing the dialysis. They are aware about it. No acute events noted with the patient. OBJECTIVE: VITAL SIGNS: Blood pressure 90/70, heart rate 77, respiratory rate 18, temperature 98.9, pulse ox 100%. GENERAL: Noted to be awake, lethargic, not in overt distress. SKIN: Adequate turgor. HEENT: Pinkish conjunctivae. Anicteric sclerae. No neck mass. No carotid bruits. No JVD. CHEST: No deformities. LUNGS: Clear breath sounds. HEART: Normal sinus rhythm. No murmur. No gallops. No rubs. ABDOMEN: Globular, soft, nontender. No masses. EXTREMITIES: Positive for edema. MEDICATIONS: Medications of September 10, 2018 reviewed. LABORATORY DATA: Laboratories of September 10, 2018; white count 9.3, hemoglobin 9. Sodium 131, potassium 3.8, chloride 100, carbon dioxide 20, BUN 23, creatinine 4.71, calcium 8.1, magnesium is 1.6. Cortrosyn stimulation test done on September 08, 2018 was noted to be within normal. ASSESSMENT AND PLAN: 1. End-stage renal disease-stable. Continue current CCPD regimen. Using 1.5% PD solution. 2. Failure to thrive-after consideration by the family regarding her overall status, they are leading towards hospice. 3. Clostridium difficile colitis, stable. Diarrhea is improving. 4. Anemia, on weekly Epogen. We will discontinue dialysis once the patient's family decides on the hospice. Job ID: [id number] [facility]
[2018-09-10] MEDS: Vancomycin HCl 25 MG/ML Oral PO SCH ×4 (10:36→20:56)
[2018-09-10] MEDS: Saccharomyces boulardii 250 MG CAP PO SCH ×2 (10:37→20:56)
[2018-09-10] MEDS: Aspirin 81 mg Enteric Coated Tablet PO SCH (10:38)
[2018-09-10] MEDS: Pantoprazole 40 MG VIAL IVP SCH ×2 (10:39→20:56)
[2018-09-10] MEDS: Acetaminophen 325 MG TAB PO PRN ×2 (10:46→20:55)
--- NOTE | 2018-09-10 14:51 | PDOC.PN ---
- Subjective Encounter Start Date: 09/10/18 Encounter Start Time: 14:49 Subjective: awake, not responding, eating some per daughter, drinking plenty of fluid - Objective Resuscitation Status - Order Detail: 09/03/18 19:36 Resuscitation Status Routine Resuscitation Status: DNAR: NO Resuscitation Discussed with: discussed with 2 daughters at bedside. pt somnolent & can't tell Vital Signs & Weight: Vital Signs (12 hours) Temp Pulse Resp BP Pulse Ox 09/10/18 12:00 99 F 86 20 106/56 L 94 L 09/10/18 08:55 100 09/10/18 07:52 98.9 F 77 18 110/63 100 09/10/18 04:00 98.9 F 85 18 100/55 L 98 Weight Admit Weight 147 lb 11.355 oz Weight 147 lb 11.355 oz Most Recent Monitor Data Heart Rate from ECG 89 NIBP 121/78 NIBP BP-Mean 92 Respiration from ECG 18 SpO2 100 I&O: 09/09/18 09/10/18 09/11/18 06:59 06:59 06:59 Intake Total 1815 1880 Output Total 1106 1130 Balance 709 750 Result Diagrams: 09/10/18 05:30 09/10/18 05:30 Phys Exam - Physical Examination HEENT: PERRLA, moist MMs, sclera anicteric, TM's clear, oral pharynx no lesions , 2+ tonsils Neck: no nodes, no JVD, supple, full ROM Respiratory: no wheezing, no rales Cardiovascular: RRR, no significant murmur Gastrointestinal: soft, non-tender, no distention, positive bowel sounds Musculoskeletal: edema present awake, but does not follow command Dx/Plan (1) Acute CVA (cerebrovascular accident) Code(s): I63.9 - CEREBRAL INFARCTION, UNSPECIFIED Status: Acute Comment: on baby ASA. (2) C. difficile colitis Status: Acute Comment: vancomycin Po QID.increased vanco and added IV Flagyl (3) ESRD (end stage renal disease) on dialysis Code(s): N18.6 - END STAGE RENAL DISEASE; Z99.2 - DEPENDENCE ON RENAL DIALYSIS Status: Acute Comment: On PD. PD fluid sent for culture (4) Sepsis Code(s): A41.9 - SEPSIS, UNSPECIFIED ORGANISM Status: Acute Comment: due to CDiff colitis - Plan cont current plan of care, plan discussed w/ family, continue antibiotics, social secretary * .
--- NOTE | 2018-09-10 15:34 | PRG ---
DATE OF SERVICE: 09/10/2018 SUBJECTIVE: Ms. Lemons remains sleepy. Her daughter reports she is eating a little more today. Her diarrhea is improved. OBJECTIVE: GENERAL: She is sleeping. LUNGS: Clear to auscultation bilaterally. HEART: Regular rate and rhythm. ABDOMEN: Soft, nontender, and nondistended. Bowel sounds are present. EXTREMITIES: Trace lower extremity edema. LABORATORY DATA: White blood cell count is 9.3. Creatinine 4.71. IMPRESSION: Clostridium difficile colitis. She appears to be clinically improving. PLAN: 1. Plan is for discharge tomorrow. She likely can discharge home with vancomycin 125 mg orally 4 times daily. We should be able to stop the metronidazole and reduce the dose of the vancomycin at this point. 2. End-stage renal disease, on peritoneal dialysis. RECOMMENDATIONS: 1. When she is ready to discharge home, she can discharge on vancomycin 125 mg orally 4 times daily. Her family wishes to take her home and is considering hospice care. 2. I will sign off for now. Please call if GI can be of assistance. Job ID: [id number]
[2018-09-10] MEDS: Atorvastatin Calcium 20 MG TAB PO SCH (20:56)
[2018-09-10] MEDS ORDERED: Morphine 2 MG/ML SYRINGE SLOW IVP PRN (21:42)
[2018-09-11] MEDS: metroNIDAZOLE 500 MG in Premix Bag 1 BAG IVPB SCH (06:12)
[2018-09-11 06:29] LABS: #Basophils 0.1 thou/uL (0.0-0.2); #Eosinphils 0.1 thou/uL (0.0-0.7); #Lymphocytes 0.9 thou/uL (1.20-3.40); #Monocytes 0.6 thou/uL (0.11-0.59); #Neutrophils 6.1 thou/uL (1.40-6.50); %Basophils 0.8 % (0.0-1.0); %Eosinophils 1.6 % (0.0-10.0); %Monocytes 8.1 % (0.0-10.0); %Neutrophils 78.4 % (42.0-75.0); Hemoglobin 8.5 g/dL (12.0-16.0); Mean Corpuscular HGB CONC 32.2 g/dL (32.0-36.0); Mean Corpuscular Hemoglobin 32.6 pg (27.0-31.0); Mean Platelet Volume 6.7 fL (7.4-10.4); Platelet Count 155 thou/uL (130-400); RBC Distribution Width 15.2 % (11.5-14.5); Red Blood Cell (RBC) Count 2.59 mill/uL (4.20-5.40); White Blood Cell (WBC) Count 7.8 thou/uL (4.8-10.8)
[2018-09-11 06:48] LABS: Anion Gap 12 mmol/L (10-20); BUN (Urea Nitrogen) 21 mg/dL (9.8-20.1); Calc. Creatinine Clearance 9 mL/min (70-130); Calcium 7.8 mg/dL (7.8-10.44); Carbon Dioxide 23 mmol/L (23-31); Chloride 102 mmol/L (98-107); Estimated GFR-MDRD 9; Glucose 92 mg/dL (83-110); Magnesium 1.4 mg/dL (1.6-2.6); Potassium 3.5 mmol/L (3.5-5.1); Sodium 133 mmol/L (136-145)
[2018-09-11 06:56] LABS: Phosphorus 2.9 mg/dL (2.3-4.7)
[2018-09-11] MEDS: Acetaminophen 325 MG TAB PO PRN (10:28)
[2018-09-11] MEDS: Aspirin 81 mg Enteric Coated Tablet PO SCH (10:28)
[2018-09-11] MEDS: Saccharomyces boulardii 250 MG CAP PO SCH (10:28)
[2018-09-11] MEDS: Pantoprazole 40 MG VIAL IVP SCH (10:29)
[2018-09-11] MEDS: Vancomycin HCl 25 MG/ML Oral PO SCH ×2 (10:29→13:49)
[2018-09-11 11:47] VITALS: BP 99/57; TEMP 99.1
--- NOTE | 2018-09-11 22:52 | DIS ---
DATE OF ADMISSION: 09/03/2018 DATE OF DISCHARGE: 09/11/2018 ADMISSION DIAGNOSES: 1. Acute CVA. 2. Clostridium difficile colitis. 3. Sepsis. 4. End-stage renal disease on peritoneal dialysis. DISCHARGE DIAGNOSES: 1. Acute CVA. 2. Clostridium difficile colitis. 3. Sepsis. 4. End-stage renal disease on peritoneal dialysis. HISTORY OF PRESENTING ILLNESS: This is an 83-year-old female who was brought in for sudden onset of increased weakness. On the ER evaluation showed an acute CVA in the left parietal area and also occipital area. The patient also septic and was started empirically on antibiotics. Subsequently, C diff being positive for which she was treated with p.o. vancomycin. During her stay, she was continued on peritoneal dialysis. The patient did not make any substantial recovery and became completely bed-bound, and encephalopathic. Later, the decision was made to make patient DNR, hospice. Family decided to stop the peritoneal dialysis and take the patient home for comfort care only. DISCHARGE INSTRUCTIONS: 1. Comfort care only. 2. Peritoneal dialysis to be stopped per family request. 3. Care is handed over to home hospice. Job ID: [id number]
--- NOTE | 2018-09-11 23:17 | EKG ---
Test Reason : Blood Pressure : / mmHG Vent. Rate : 082 BPM Atrial Rate : 082 BPM P-R Int : 242 ms QRS Dur : 086 ms QT Int : 478 ms P-R-T Axes : 071 -59 111 degrees QTc Int : 558 ms Electronic ventricular pacemaker Confirmed by GINNY MONTEZ ([id number]), purchasing expeditor FELECIA HENAO ([id number] on 09/11/2018 11:17:11 PM Referred By: Confirmed By:GINNY MONTEZ
== END 2018-09-11 13:56 | disposition hospice, home (50) | DRG 871 ==
LOC: ERS 15:35 → ERHOLD 18:30 → CCU 09-04 14:52 → 2NO 09-07 22:42 → 2SE 09-09 17:02
PROVIDERS: ADMIT Internal Medicine; ATTEND Internal Medicine
PROC: 3E033XZ Introduction of Vasopressor into Peripheral Vein, Percutaneous Approach (ICD-10-PCS; principal; 2018-09-03)
PROC: 3E1M39Z Irrigation of Peritoneal Cavity using Dialysate, Percutaneous Approach (ICD-10-PCS; 2018-09-03)
PROC: 3E1M39Z Irrigation of Peritoneal Cavity using Dialysate, Percutaneous Approach (ICD-10-PCS; 2018-09-04)
PROC: 3E1M39Z Irrigation of Peritoneal Cavity using Dialysate, Percutaneous Approach (ICD-10-PCS; 2018-09-05)
PROC: 30233N1 Transfusion of Nonautologous Red Blood Cells into Peripheral Vein, Percutaneous Approach (ICD-10-PCS; 2018-09-06)
PROC: 3E1M39Z Irrigation of Peritoneal Cavity using Dialysate, Percutaneous Approach (ICD-10-PCS; 2018-09-06)
PROC: 3E1M39Z Irrigation of Peritoneal Cavity using Dialysate, Percutaneous Approach (ICD-10-PCS; 2018-09-07)
PROC: 3E1M39Z Irrigation of Peritoneal Cavity using Dialysate, Percutaneous Approach (ICD-10-PCS; 2018-09-08)
PROC: 3E1M39Z Irrigation of Peritoneal Cavity using Dialysate, Percutaneous Approach (ICD-10-PCS; 2018-09-09)
DX: A41.9 Sepsis, unspecified organism (principal); N18.6 End stage renal disease; R65.21 Severe sepsis with septic shock; I63.9 Cerebral infarction, unspecified; I12.0 Hypertensive chronic kidney disease with stage 5 chronic kidney disease or end stage renal disease; I24.8 Other forms of acute ischemic heart disease; K62.5 Hemorrhage of anus and rectum; A04.72 Enterocolitis due to Clostridium difficile, not specified as recurrent; R62.7 Adult failure to thrive; Z68.32 Body mass index [BMI] 32.0-32.9, adult; F32.9 Major depressive disorder, single episode, unspecified; E86.0 Dehydration; E11.22 Type 2 diabetes mellitus with diabetic chronic kidney disease; E78.5 Hyperlipidemia, unspecified; H40.9 Unspecified glaucoma; H35.30 Unspecified macular degeneration; M19.90 Unspecified osteoarthritis, unspecified site; E87.6 Hypokalemia; Z66 Do not resuscitate; I48.0 Paroxysmal atrial fibrillation; D64.9 Anemia, unspecified; Z79.01 Long term (current) use of anticoagulants; Z99.2 Dependence on renal dialysis; Z95.0 Presence of cardiac pacemaker
CPT/HCPCS: 36415; 36416; 36430; 51701; 70450; 71045; 80048; 80053; 80202; 80400; 81003; 81015; 82553; 83605; 83735; 84100; 84484; 85025; 86850; 86900; 86901; 87040; 87070; 87077; 87086; 87186; 87205; 87324; 87449; 87493; 90945; 93005; 93306; 96365; 96366; 96367; 96368; 96375; 96376; A4353; C9113; G0257; J0696; J0834; J1580; J2270; J3370; J3475; J3480; J7050; P9016; P9047; Q4081